=== PATIENT | male | born 1950 | race Caucasian/White ===

== ENCOUNTER → 2016-10-11 | Outpatient (CLI) | payer BC ==
[~2016-10-11] MED LIST: ASCO500T3 PO; ASPI81TA28 PO; BND25CL PO; CALC-393 PO; CALC-494 PO; CALC625T13 PO; CARB0.5D28 OPB; CHOL100010 PO; CHOL1CAP57 PO; CHRO1TAB8 PO; CINN500T PO; CLON0.5T3 PO; CYAN100020 PO; CYAN10005 PO; EPP3/2 IM; FOLI800T PO; LISI-461 PO; LORA-741 PO; LUTE1CAP PO; MULT-506 PO; OMEG100062 PO; POLYSOL4 OPB; PSYLCAP5 PO; RXC5 PO; SODI1.1C4
[2016-10-11 09:27] LABS: BASO % 0.3 %; BASO ABS # 0.02 K/uL (0-0.2); COMPLETE YES; EOS % 2.2 %; HEMATOCRIT 41.6 % (42-52); IG% 0.2 %; LYMPH % 35.4 %; LYMPH ABS # 2.13 K/uL (1.2-3.4); MEAN CELL VOLUME 89.3 fL (80-100); MEAN CORPUSCULAR HEMOGLOBIN 30.5 pg (25-34); MEAN CORPUSCULAR HGB CONC 34.1 g/dl (32-36); MEAN PLATELET VOLUME 10.2 fL (7.4-10.4); MONO % 11.8 %; NEUT % 50.1 %; PLATELET COUNT 155 K/uL (130-400); RED BLOOD COUNT 4.66 M/uL (4.7-6.1); WHITE BLOOD COUNT 6.01 K/uL (4.8-10.8)
[2016-10-11 09:34] LABS: ESTIMATED AVERAGE GLUCOSE 105 mg/dl; HA1C FLAG Normal (Normal)
[2016-10-11 09:41] LABS: ALT/SGPT 23 U/L (12-78); BLOOD UREA NITROGEN 25 mg/dl (7-18); BUN/CREATININE RATIO 28.4 (10-20); CARBON DIOXIDE 27 mmol/L (21-32); CHLORIDE 107 mmol/L (98-107); CHOLESTEROL 162 mg/dl (0-200); CREATININE 0.89 mg/dl (0.60-1.40); GLUCOSE 95 mg/dl (70-99); POTASSIUM 4.1 mmol/L (3.5-5.1); SODIUM 141 mmol/L (136-145); TRIGLYCERIDES 62 mg/dl (0-150); VERY LOW DENSITY LIPOPROT CALC 12 mg/dl
[2016-10-11 09:44] LABS: ALB/GLOB RATIO 1.1 (0.9-2); ALKALINE PHOSPHATASE 60 U/L (45-117); AST/SGOT 15 U/L (15-37); CHOLESTEROL/HDL RATIO 3.3; HDL CHOLESTEROL 49 mg/dl; LDL CHOLESTEROL CALCULATED 101 mg/dl
== END | disposition home or self-care (01) ==
LOC: C.LAB 06:54
PROVIDERS: ATTEND Internal Medicine
DX: R73.01 Impaired fasting glucose (principal)

== ENCOUNTER → 2016-12-08 | Day surgery (SDC) | payer BC ==
[2016-11-08 15:18] VITALS: BMI 33.0
[~2016-12-08] VITALS: Ht 188 cm; Wt 115.9 kg
[~2016-12-08] MED LIST changes: +ACET-24 PO; +ASPEC325 PO; -BND25CL PO; -CHOL1CAP57 PO; -CYAN10005 PO; +LIDOCAINE HCL 2% 2 ML VIAL (20MG/ML) ONE; +MORP-157 PO; -POLYSOL4 OPB; +PROPOFOL IV EMULSION 10 MG/ML 20 ML VIAL IV ONE
[2016-12-08 15:07] VITALS: Ht 188 cm; Wt 115.9 kg
--- NOTE | 2016-12-08 16:12 | Endo History and Physical ---
History & Physical Date of Service: Dec 08, 2016. Chief Complaint: HISTORY OF POLYPS Referring Physician: DR LISA VILLAREAL History of Present Illness 66 yo CM who presents for colonoscopy secondary to history of colon polyps. Past Medical History Sleep Apnea, Other Past Surgical History Hx Cardiac Surgery: No Hx Internal Defibrillator: No Hx Pacemaker: No Hx Abdominal Surgery: No Hx of Implantable Prosthesis: No Hx Post-Op Nausea and Vomiting: No Hx Cancer Surgery: No Hx Thoracic Surgery: No Hx Orthopedic: Yes (RT/LEFT CTR, LUMBAR DISCECTOMY, CERVICAL DISCECTOMY, RT/ LEFT CTR) Hx Urinary Tract Surgery: No Family History None Social History Smoking Status: Former Smoker Hx Substance Use: No Hx Alcohol Use: No Allergies Coded Allergies: BEE STING (Verified Allergy, Unknown, SHORTNESS OF BREATH, 12/08/16) Sulfamethoxazole w/Trimethoprim (Verified Allergy, Unknown, RASH, 12/08/16) Current Medications Reported Home Medications Medications Dose Route/Sig Max Daily Dose Days Date Category Lutein/Zeaxanthin 45-1.8 mg (Lutein-Zeaxanthin) 1 Cap Cap 1 Cap PO QAM 11/08/16 Reported Vitamin D (Cholecalciferol) 1,000 Unit Tab 1 Tab PO QAM 11/08/16 Reported Vitamin C (Ascorbic Acid) 500 Mg Tab 1 Tab PO QAM 11/08/16 Reported Vitamin B12 (Cyanocobalamin) 1,000 Mcg Tab 1 Tab PO QAM 11/08/16 Reported Refresh Tears (Carboxymethylcellulose Sodium) 0.5 % [place] 1 Drop OPB BID 11/08/16 Reported Sf 5000 Plus (Sodium Fluoride (Dental)) 1.1 % Cre 1 Dose HS PRN 11/08/16 Reported Fiber Tabs (Calcium Polycarbophil) 625 Mg Tab 1 Tab PO QAM 11/08/16 Reported Epipen (Epinephrine) 0.3 Mg/0.3 Ml Inj 0.3 Mg IM UD 11/08/16 Reported Calcium (Calcium Carbonate) 600 Mg Tab 1 Tab PO QAM 02/26/14 Reported [place]-3 Cf ([place]-3 Fatty Acids) 1 Cap Cap 1,000 Mg PO BID 07/17/13 Reported Multivitamin (Multivitamins) Tab 1 Tab PO QAM 07/17/13 Reported Metamucil Plus Calcium (Psyllium W/ Calcium) 1 Cap Cap 1 Cap PO QPM 07/17/13 Reported Folic Acid 800 Mcg Tab 800 Mcg PO QAM 07/17/13 Reported Cinnamon 500 Mg Tab 500 Mg PO BID 07/17/13 Reported Chromium Picolinate 1,000 Mcg Tab 1,000 Mcg PO QAM 07/17/13 Reported Aspirin Ec (Aspirin) 81 Mg Tab 81 Mg PO QAM 07/17/13 Reported Klonopin (Clonazepam) 0.5 Mg Tab 0.5 Mg PO HS 07/17/13 Reported Zestril (Lisinopril) 10 Mg Tab 10 Mg PO QAM 07/17/13 Reported Ativan (Lorazepam) 0.5 Mg Tab 0.5 Mg PO DAILY PRN 07/17/13 Reported Vital Signs Weight (Kilograms): 115.91 Height (Feet): 6 Height (Inches): 2 Date Time Temp Pulse Resp B/P Pulse Ox O2 Delivery O2 Flow Rate FiO2 12/08/16 15:18 36.7 84 18 126/70 96 Room Air Physical Exam General Appearance: WD/WN, no apparent distress Respiratory/Chest: Auscultation: breath sounds normal Cardiovascular: Heart Auscultation: RRR Abdomen: Bowel Sounds: normal Inspection & Palpation: soft, non-distended, no tenderness, guarding & rebound Assessment and Plan Assessment: 66 yo CM who presents for colonoscopy secondary to history of colon polyps. Plan: Proceed with colonoscopy.
--- NOTE | 2016-12-08 16:55 | Discharge Instructions ---
Endoscopy Patient Instructions Date / Procedure(s) Performed Dec 08, 2016. Colonoscopy Allergy Information Coded Allergies: BEE STING (Verified Allergy, Unknown, SHORTNESS OF BREATH, 12/08/16) Sulfamethoxazole w/Trimethoprim (Verified Allergy, Unknown, RASH, 12/08/16) Discharge Date / Findings Dec 08, 2016. Colon polyp Internal hemorrhoids Medication Instructions Stopped Medication(s): ALL VITAMINS AND SUPPLEMENTS OK to resume all medications today as prescribed. Reported Home Medications Medications Dose Route/Sig Max Daily Dose Days Date Category Lutein/Zeaxanthin 45-1.8 mg (Lutein-Zeaxanthin) 1 Cap Cap 1 Cap PO QAM 11/08/16 Reported Vitamin D (Cholecalciferol) 1,000 Unit Tab 1 Tab PO QAM 11/08/16 Reported Vitamin C (Ascorbic Acid) 500 Mg Tab 1 Tab PO QAM 11/08/16 Reported Vitamin B12 (Cyanocobalamin) 1,000 Mcg Tab 1 Tab PO QAM 11/08/16 Reported Refresh Tears (Carboxymethylcellulose Sodium) 0.5 % [place] 1 Drop OPB BID 11/08/16 Reported Sf 5000 Plus (Sodium Fluoride (Dental)) 1.1 % Cre 1 Dose HS PRN 11/08/16 Reported Fiber Tabs (Calcium Polycarbophil) 625 Mg Tab 1 Tab PO QAM 11/08/16 Reported Epipen (Epinephrine) 0.3 Mg/0.3 Ml Inj 0.3 Mg IM UD 11/08/16 Reported Calcium (Calcium Carbonate) 600 Mg Tab 1 Tab PO QAM 02/26/14 Reported [place]-3 Cf ([place]-3 Fatty Acids) 1 Cap Cap 1,000 Mg PO BID 07/17/13 Reported Multivitamin (Multivitamins) Tab 1 Tab PO QAM 07/17/13 Reported Metamucil Plus Calcium (Psyllium W/ Calcium) 1 Cap Cap 1 Cap PO QPM 07/17/13 Reported Folic Acid 800 Mcg Tab 800 Mcg PO QAM 07/17/13 Reported Cinnamon 500 Mg Tab 500 Mg PO BID 07/17/13 Reported Chromium Picolinate 1,000 Mcg Tab 1,000 Mcg PO QAM 07/17/13 Reported Aspirin Ec (Aspirin) 81 Mg Tab 81 Mg PO QAM 07/17/13 Reported Klonopin (Clonazepam) 0.5 Mg Tab 0.5 Mg PO HS 07/17/13 Reported Zestril (Lisinopril) 10 Mg Tab 10 Mg PO QAM 07/17/13 Reported Ativan (Lorazepam) 0.5 Mg Tab 0.5 Mg PO DAILY PRN 07/17/13 Reported Provider Instructions Activity Restrictions - No exercising or heavy lifting for 24 hours. - Do not drink alcohol the day of the procedure. - Do not drive a car or operate machinery until the day after the procedure. - Do not make any important decisions or sign important papers in 24 hours after the procedure. Following Day: - Return to full activity which may include returning to work/school. Diet Start your diet with liquids and light foods (jello, soup, juice, toast). Then eat your usual diet if not nauseated. Treatment For Common After Affects For mild abdominal pain, bloating, or excessive gas: - Rest - Eat lightly - Lie on right side Follow-Up Information Follow-up with DR LISA VILLAREAL as scheduled Anesthesia Information What You Should Know You have had a procedure that required some medicine to reduce anxiety and discomfort. This treatment is called moderate sedation. After receiving the treatment, you may be sleepy, but you will be able to breathe on your own. The effects of the treatment may last for several hours. Follow these instructions along with Activity/Diet recommendations noted above: * Do NOT do anything where dizziness or clumsiness would be dangerous. * Rest quietly at home today, then you can be up and about tomorrow. * Have a responsible person stay with you the rest of today. * You may have had an I.V. today. If so, you may take the dressing off later today. Recommendations Call your doctor if: * Trouble breathing * Continuous vomiting for more than 24 hours * Temperature above 101 degrees * Severe abdominal pain or bloating * Pain not relieved by pain medicine ordered * There is increased drainage or redness from any incision * A large amount of rectal bleeding greater than 2-3 tablespoons. (If you had a polyp/s removed or have hemorrhoids, a small amount of blood - from the rectum is to be expected.) * You have any unanswered questions or concerns. IN THE EVENT OF A SERIOUS EMERGENCY, GO TO THE NEAREST EMERGENCY ROOM Your discharge instructions were prepared by provider Nam Conde. Patient Instructions Signature Page Lamont Saba Patient (or Guardian) Signature/Date: I have read and understand the instructions given to me by my caregivers. Caregiver/RN/Doctor Signature/Date: The above-named patient and/or guardian has received patient instructions on this date. + Original Patient Signature Page (only) stays with chart. Please make copy for patient.
--- NOTE | 2016-12-08 17:02 | Anesthesiology Progress Note ---
Anesthesia Post Op Note Date & Time Dec 08, 2016 at 17:02 Vital Signs Pain Intensity: 0 Vital Signs Past 12 Hours Date Time Temp Pulse Resp B/P Pulse Ox O2 Delivery O2 Flow Rate FiO2 12/08/16 16:58 68 18 124/80 96 Room Air 12/08/16 16:43 73 18 123/77 96 Room Air 12/08/16 15:18 36.7 84 18 126/70 96 Room Air Notes Mental Status: alert / awake / arousable, participated in evaluation Pt Amnestic to Procedure: Yes Nausea / Vomiting: adequately controlled Pain: adequately controlled Airway Patency, RR, SpO2: stable & adequate BP & HR: stable & adequate Hydration State: stable & adequate Anesthetic Complications: no major complications apparent
[2016-12-08 17:13] VITALS: BP 75/80; PULSE 64; O2SAT 96
--- NOTE | 2016-12-08 17:13 | GI REPORT ---
Procedure Date: 12/08/2016 4:13 PM Procedure: Colonoscopy Indications: High risk colon cancer surveillance: Personal history of colonic polyps Medicines: Monitored Anesthesia Care Complications: No immediate complications. Estimated Blood Loss: Estimated blood loss: none. Procedure: Pre-Anesthesia Assessment: - Prior to the procedure, a History and Physical was performed, and patient medications and allergies were reviewed. The patient's tolerance of previous anesthesia was also reviewed. The risks and benefits of the procedure and the sedation options and risks were discussed with the patient. All questions were answered, and informed consent was obtained. Prior Anticoagulants: The patient has taken aspirin, last dose was 14 days prior to procedure. ASA Grade Assessment: III - A patient with severe systemic disease. After reviewing the risks and benefits, the patient was deemed in satisfactory condition to undergo the procedure. After I obtained informed consent, the scope was passed under direct vision. Throughout the procedure, the patient's blood pressure, pulse, and oxygen saturations were monitored continuously. The Scope was introduced through the anus and advanced to the terminal ileum. The colonoscopy was performed without difficulty. The patient tolerated the procedure well. The quality of the bowel preparation was good. The terminal ileum, ileocecal valve, appendiceal orifice, and rectum were photographed. Findings: A 5 mm polyp was found in the cecum. The polyp was sessile. The polyp was removed with a hot snare. Resection and retrieval were complete. Multiple small-mouthed diverticula were found in the sigmoid colon. Non-bleeding internal hemorrhoids were found during retroflexion. The hemorrhoids were small. Impression: - One 5 mm polyp in the cecum, removed with a hot snare. Resected and retrieved. - Diverticulosis in the sigmoid colon. - Non-bleeding internal hemorrhoids. Recommendation: - Resume previous diet. - Continue present medications. - Await pathology results. - Repeat colonoscopy for surveillance based on pathology results. - Return to primary care physician as previously scheduled. Nam Conde, 12/08/2016 5:11:07 PM This report has been signed electronically. Note Initiated On: 12/08/2016 4:13 PM I attest to the content of the Intraoperative Record and orders documented therein, exceptions below
== END | disposition home or self-care (01) ==
LOC: C.GI 14:22
PROVIDERS: ATTEND Internal Medicine
DX: Z12.11 Encounter for screening for malignant neoplasm of colon (principal); Z86.010 Personal history of colon polyps; D12.0 Benign neoplasm of cecum; K57.30 Diverticulosis of large intestine without perforation or abscess without bleeding; K64.8 Other hemorrhoids; Z87.891 Personal history of nicotine dependence; Z79.82 Long term (current) use of aspirin; Z79.899 Other long term (current) drug therapy

== ENCOUNTER → 2017-06-15 | Outpatient (CLI) | payer BC ==
[~2017-06-15] MED LIST changes: -CALC-393 PO; -LIDOCAINE HCL 2% 2 ML VIAL (20MG/ML) ONE; -PROPOFOL IV EMULSION 10 MG/ML 20 ML VIAL IV ONE
[2017-06-15 09:52] LABS: ESTIMATED AVERAGE GLUCOSE 111 mg/dl; HA1C FLAG Normal (Normal)
[2017-06-15 09:53] LABS: CHOLESTEROL/HDL RATIO 3.4
== END | disposition home or self-care (01) ==
LOC: C.LAB 06:53
PROVIDERS: ATTEND Internal Medicine
DX: Z11.59 Encounter for screening for other viral diseases (principal); G47.33 Obstructive sleep apnea (adult) (pediatric)

== ENCOUNTER → 2017-11-03 | Outpatient (CLI) | payer BC ==
[~2017-11-03] MED LIST changes: -ASPI81TA28 PO; -MORP-157 PO
== END | disposition home or self-care (01) ==
LOC: C.LABBC 10:48
PROVIDERS: ATTEND Internal Medicine
DX: I10 Essential (primary) hypertension (principal); G47.33 Obstructive sleep apnea (adult) (pediatric); E78.5 Hyperlipidemia, unspecified; H91.90 Unspecified hearing loss, unspecified ear; K63.5 Polyp of colon; R73.01 Impaired fasting glucose; D64.9 Anemia, unspecified

== ENCOUNTER 2021-12-02 23:46 | Inpatient (IN) ==
[2021-12-03] MEDS ORDERED: ONDANSETRON INJ 2 MG/ML 2 ML VIAL ONE ×2 (00:41→02:00)
[2021-12-03] MEDS ORDERED: SODIUM CHLORIDE 0.9% 1000ML 1,000 ML IV SCH (00:45)
[2021-12-03 00:53] LABS: Basophils # (auto) 0.02 K/uL (0-0.2); Basophils % (auto) 0.2 %; Eosinophils # (auto) 0.02 K/uL (0-0.5); Eosinophils % (auto) 0.2 %; Hematocrit (blood only) 37.1 % (42-52); Hemoglobin 12.3 g/dL (14.0-18.0); Immature Granulocytes # (auto) 0.04 K/uL (0.00-0.02); Immature Granulocytes % (auto) 0.3 %; Lymphocytes # (auto) 1.47 K/uL (1.2-3.4); Lymphocytes % (auto) 12.3 %; Mean Corpuscular Hemoglobin 30.4 pg (25-34); Mean Corpuscular Hgb Conc 33.2 g/dL (32-36); Mean Corpuscular Volume 91.8 fL (80-100); Mean Platelet Volume 9.5 fL (7.4-10.4); Monocytes # (auto) 1.09 K/uL (0.11-0.59); Monocytes % (auto) 9.1 %; Neutrophils # (auto) 9.29 K/uL (1.4-6.5); Neutrophils % (auto) 77.9 %; Platelet Count 334 K/uL (130-400); RDW Coefficient of Variation 13.6 % (11.5-14.5); RDW Standard Deviation 45.9 fL (36.4-46.3); Red Blood Count 4.04 M/uL (4.7-6.1); White Blood Count 11.93 K/uL (4.8-10.8)
[2021-12-03 01:13] LABS: Alanine Aminotransferase 53 U/L (7-52); Albumin Level 3.4 gm/dl (3.4-5.0); Alkaline Phosphatase 156 U/L (34-104); Anion Gap 10 (3-11); Aspartate Aminotransferase 33 U/L (13-39); BUN Creatinine Ratio 14.2 (10-20); Bilirubin,Total 1.2 mg/dl (0.2-1.0); Blood Urea Nitrogen 17 mg/dl (6-23); Calcium 8.7 mg/dl (8.5-10.1); Carbon Dioxide 23 mmol/L (21-32); Chloride 97 mmol/L (98-107); Est GFR (African American) 71.1 ml/min; Est GFR (Non-African American) 61.3 ml/min; Globulin 3.3 gm/dl (2.5-4.0); Glucose 130 mg/dl (70-99(Fasting)); Magnesium 1.9 mg/dl (1.7-2.4); Potassium 4.5 mmol/L (3.5-5.1); Sodium 130 mmol/L (136-145); Total Protein 6.7 gm/dl (6.0-8.3)
[2021-12-03 01:17] LABS: Troponin I High Sensitivity 8.5 pg/ml (0-20)
[2021-12-03] MEDS ORDERED: AMIODARONE / D5W 150 MG/100 ML BAG IV STA (01:33)
[2021-12-03] MEDS ORDERED: 0.2 MICRON FILTER SET 1 EA IV ONE (01:33)
[2021-12-03] MEDS ORDERED: STAT IV Infusion **Titration per Protocol STA ×3 (02:37→05:34)
[2021-12-03] MEDS ORDERED: PHENYLEPHRINE HCL 20 MG in DEXTROSE 5% 500 ML IV SCH (02:45)
[2021-12-03] MEDS: PHENYLEPHRINE HCL 20 MG in DEXTROSE 5% 500 ML IV SCH ×3 (02:54→09:18)
[2021-12-03] MEDS ORDERED: COLCHICINE 0.6 MG TAB PO ONE (03:11)
[2021-12-03] MEDS ORDERED: ASPIRIN 81 MG CHEW PO STA (03:13)
[2021-12-03] MEDS ORDERED: methylPREDNISolone 125 MG/2 ML VIAL IV STA (03:16)
[2021-12-03] MEDS ORDERED: FAMOTIDINE 20MG/5ML IV PUSH IV ONE (03:43)
[2021-12-03 04:23] LABS: Lyme Ab IgG w/WB Rflx Negative (Negative); Lyme Ab IgM w/WB Rflx Negative (Negative)
[2021-12-03] MEDS ORDERED: clonazePAM 0.5 MG TAB PO PRN (04:42)
[2021-12-03] MEDS ORDERED: ICU PROTOCOL FOR HYPERGLYCEMIA PRN (04:42)
--- NOTE | 2021-12-03 05:32 | Critical Care Consultation ---
Date of Consultation December 03, 2021 Assessment & Plan (1) Admitted to intensive care unit: (2) Acute hypotension: Reason Critically Ill: 71-year-old male presenting with hypotension, generalized fatigue, and a flutter. Patient cardioverted in the emergency department and now with persistent hypotension requiring close hemodynamic monitoring and initiation of vasopressors. NEURO - * CAM ICU: NEGATIVE CARDIAC/VASCULAR - * Hypotension: * Of questionable etiology at this point. Patient minimally responded with IV fluid resuscitation. Attempts at chemical cardioversion resulted in profound hypotension and need for electrical cardioversion. Patient now in sinus rhythm with rates in the 60s to 70s. Unfortunately, despite conversion to sinus rhythm, the patient is with persistent hypotension requiring initiation of vasopressors. Patient started on Presley-Synephrine. * Of concern, the patient has chest films which demonstrate enlarged cardiac silhouette when compared to approximately 10 days ago. On exam, patient has minimal to distant heart sounds. * POCUS performed by myself is concerning of effusion pathology. Formal Echo pending. Reached out to social services technician to have bedside echo performed first this this AM. Certainly could consider CT, but would prefer to get Echo first as patient requiring pressors currently. * Will transition patient from Presley to Levo * New onset A flutter: * Initially received amiodarone, but became profoundly hypotensive. Eventually required electrical cardioversion. Now in sinus rhythm. * Would consider reinstituting amio gtt w/ pressors if return of a flutter. * May require repeat cardioversion attempts. * EKG: NSR @ 73 bpm. T wave inversions noted septal/laterally. QTc 438 ms. * Monitor on telemetry. RESPIRATORY - * Hypoxia: * Requiring 4 L at this time. * No respiratory distress. GI/NUTRITION - * NPO RENAL/LYTES - * TONY * IVF: NSS @ 100 mL/hr - * Disla in place - Strict I&Os. ENDO - * No h/o DM or Thyroid Dz * BSGs per unit protocol. ISS --> gtt per unit policy. HEME - * Stable H&H ID - * Recently completed course of antibiotics in the outpatient for pneumonia. * Patient afebrile at this time. * No infiltrates on CXR to suggest need for additional antibiotics at this time. * No fevers. * Slight elevation of WBCs. * Hold on ABX for now LINES/IV ACCESS - * PIVs x2 DVT PROPHYLAXIS - * Hold pending Echo * SCDs I have personally spent 55 minutes of critical care time in the direct management of this patient. This is a life/limb threatening event. This includes time spent evaluating patient, direct bedside care, chart review, placing orders, interpretation of diagnostic studies, discussion with consultants, patient, and family members, as well as other required patient management activities. This time is exclusive of all separately billable procedures, and teaching time and separate from and in addition to any other critical care service time. Thank you for allowing us to participate in the care of this patient. Please refer to my attending physician's documentation for any further recommendations. (3) Weakness: (4) Atrial flutter: History of Present Illness Attending Physician: Gianfranco Molina MD History of Present Illness Patient is a 71-year-old male with significant past medical history of generalized anxiety disorder, hypertension, hyperlipidemia, obstructive sleep apnea, cervical spinal stenosis, and degenerative disc disease who presented to the emergency department with a several day history of shortness of breath, nausea, and generalized weakness. The patient was diagnosed in the outpatient setting with pneumonia. He was placed on a weeklong course of doxycycline. He states that he had an abbreviated time where he seemed to feel better, however the symptoms of improvement dissipated quickly. Main symptoms are generalized weakness and fatigue. Apparently, patient has had difficulties with ambulation secondary to weakness and shortness of breath. In the emergency department, the patient was found to be in a 2-1 a flutter rhythm and hypotensive. He received volume resuscitation without improvement in blood pressure, heart rate, or rhythm. While patient was receiving amiodarone bolus, he became increasingly hypotensive with systolic blood pressures in the 50s. Patient was symptomatic with near syncopal episode. Pulse was stopped, and the patient was cardioverted with 100 J. Patient converted to sinus rhythm. Despite conversion to sinus rhythm, the patient remained with hypotension and systolic blood pressures in the 60s. He was started on Pres[place]-Synephrine. Upon evaluation in the ICU, the patient is awake, alert, and oriented. He complains of nausea as well as generalized weakness and fatigue. Currently, the patient denies complaints of chest pain, palpitations, shortness of breath, pleuritic pain, vomiting, headaches, dizziness, lightheadedness, numbness/weakness to the extremities. Allergies Allergy/AdvReac Type Severity Reaction Status Date / Time Bactrim Allergy Unknown RASH Verified 06/23/17 10:52 bee venom protein (honey bee) Allergy Unknown SHORTNESS Verified 12/03/21 02:13 OF BREATH sulfamethoxazole Allergy Unknown RASH Verified 12/03/21 02:13 trimethoprim Allergy Unknown RASH Verified 12/03/21 02:13 morphine AdvReac rash Verified 12/03/21 02:13 Home Medications Medication Instructions Recorded Confirmed Type aspirin 81 mg tablet 81 mg PO DAILY tab 04/01/19 12/03/21 History calcium citrate 250 mg 2 tab PO DAILY tab 04/01/19 12/03/21 History calcium-vitamin D3 5 mcg (200 unit) tablet chromium picolinate 1,000 mcg 1,000 mcg PO DAILY tab 04/01/19 12/03/21 History tablet cinnamon bark 500 mg capsule 1,000 mg PO DAILY cap 04/01/19 12/03/21 History (Cinnamon) cyanocobalamin (vitamin B-12) 1,000 mcg PO DAILY tab 04/01/19 12/03/21 History 1,000 mcg tablet folic acid 800 mcg tablet 0.8 mg PO DAILY tab 04/01/19 12/03/21 History omega-3 acid ethyl esters 1 gram 2 cap PO DAILY cap 04/01/19 12/03/21 History capsule ascorbic acid (vitamin C) 500 mg 500 mg PO DAILY cap 07/31/19 12/03/21 History capsule multivitamin 1 tab PO DAILY 07/31/19 12/03/21 History psyllium husk-calcium 1 gram-60 mg 1 cap PO BID cap 07/31/19 12/03/21 History capsule (Metamucil Plus Calcium) lorazepam 0.5 mg tablet 0.5 mg PO DAILY PRN #30 tab 11/05/19 12/03/21 Rx [id number]-LP 100 mcg-lut 1.66 1 tab PO DAILY tab 09/23/20 12/03/21 History mg-zeaxanth 0.83 mg tablet,delay rel. (Icaps MV) carboxymethylcellulose sodium 0.5 1 drp OPHTHALMIC (EYE) BID 11/06/20 12/03/21 History % eye drops (Refresh Tears) fluoride (sodium) 1.1 % dental 1 applic DENTAL DAILY 11/06/20 12/03/21 History cream (SF 5000 Plus) lisinopril 10 mg tablet 10 mg PO DAILY #90 tab 03/11/21 12/03/21 Rx epinephrine 0.3 mg/0.3 mL 0.3 mg IM Q15M PRN #2 ea 03/15/21 12/03/21 Rx injection, auto-injector clonazepam 0.5 mg tablet 0.5 mg PO DAILY #30 tab 10/06/21 12/03/21 Rx doxycycline hyclate 100 mg capsule 100 mg PO BID 7 Days #14 cap 11/23/21 12/03/21 Rx Patient History Medical History Anaphylaxis Anaphylaxis due to hymenoptera venom Anemia Benign colonic polyp Cervical stenosis of spinal canal (03/05/14) Degenerative disc disease, lumbar Generalized anxiety disorder Greater trochanteric pain syndrome of left lower extremity Hearing loss Hyperlipidemia Hypertension Impaired fasting glucose Leg length discrepancy Localized primary osteoarthritis of lower leg NERIS (obstructive sleep apnea) Periodic limb movement disorder Surgical History History of eye surgery History of foot surgery History of lumbar laminectomy History of retained foreign body fully removed History of tonsillectomy Family History Brother Anxiety Hypertension Intellectual disability Sister Breast cancer Mother Hypertension Father Lung cancer Other Asthma Cancer Hearing loss Social History Smoking Status: Former smoker packs per day: 1.5; Smoking End Date: 46 years ago; Number of Years Since Quit: 41; Second Hand Exposure: No; Do You Dip or Chew Tobacco: No; Tobacco Cessation Education Requested by Patient: No Hx Alcohol Use: No Hx Substance Use: No Preferred Language: Spanish Communication Ability: Effective Visual Impairment: Limited Hearing Ability: Use of Hearing Aid Electrical Unit Rebuilder Required: No Beliefs That Will Affect Care: None marital status: Current Living Situation: Spouse current occupational status: retired current occupation: clerk stenographer How many Children do You have: 0 Other Information That Helps Us Care for You: No Feels Safe at Home: Yes Safety Concerns: Feels Safe At This Time Childhood Exposure to Second-Hand Smoke: No caffeine: Yes Dental Care, Regularly: Yes Physical Activity Frequency: Daily Seatbelt Use: always Sunscreen Use: Yes Assistive Devices: Glasses and Hearing Aid - Bilateral Review of Systems Review of Systems: A complete 10 point review of systems was reviewed with the patient with pertinent positives and negatives as per history of present illness. All else were negative. Physical Exam Physical Exam: VITAL SIGNS - Vital signs and nursing notes were reviewed. GENERAL - 71-year-old male appearing his stated age who is in moderate distress. Communicates well with provider and answers questions appropriately. HEAD - NC/AT. EYES - PERRL with EOMI bilaterally. Sclera anicteric. EARS - No deformities of external structures noted on gross examination bilaterally. NOSE - Midline and without cyanosis. No epistaxis or purulent drainage noted. MOUTH/OROPHARYNX - Without perioral cyanosis. Buccal mucosa pink and moist. NECK - Neck with FROM. Supple to palpation. LUNGS - Chest wall symmetric without accessory muscle use, intercostals retractions, or central cyanosis. Normal vesicular breath sounds CTA B/L. No wheezes, rales, or rhonchi appreciated. CARDIAC - Muffled heart sounds. No rubs appreciated. ABDOMEN - Abdominal contour obese without pulsations or visible masses. BS normoactive all four quadrants. No tenderness, palpable masses, hepatosplenomegaly, or ascites noted. EXTREMITIES - No clubbing or peripheral cyanosis. No pretibial edema present. +3/5 radial and dorsalis pedis pulses palpated throughout. +5/5 strength noted in UE/LE bilaterally. NEUROLOGIC - Cranial nerves II through XII grossly intact. Sensory intact to light touch throughout. PSYCH - A&Ox3 and cooperates fully with examiner. Pt is very pleasant and interacts well with examiner. Results & Data Results & Data ([facility]) Vital Signs (Past 12 Hours) Vital Signs Temp Pulse Pulse Resp BP BP Pulse Ox 12/03/21 05:00 36.6 C 70 21 85/57 L 97 12/03/21 04:42 36.8 C 75 76 20 83/54 L 85/57 L 96 12/03/21 04:05 67 23 92/63 L 96 12/03/21 04:00 68 21 83/64 L 97 12/03/21 03:56 68 21 106/63 97 12/03/21 03:51 68 22 88/62 L 97 12/03/21 03:45 68 22 81/67 L 100 12/03/21 03:40 69 27 H 106/63 98 12/03/21 03:35 68 22 92/58 L 97 12/03/21 03:32 69 23 90/57 L 97 12/03/21 03:21 68 21 86/57 L 95 12/03/21 03:16 70 23 98/53 L 96 12/03/21 03:10 68 23 94/57 L 98 12/03/21 03:06 71 23 82/56 L 96 12/03/21 02:45 74 23 65/50 L 97 12/03/21 02:40 75 22 62/44 L 97 12/03/21 02:35 74 23 64/48 L 97 12/03/21 02:30 77 24 67/53 L 95 12/03/21 02:25 77 22 63/48 L 97 12/03/21 02:20 77 22 61/48 L 98 12/03/21 02:18 75 18 66/49 L 99 12/03/21 02:14 77 20 121/92 100 12/03/21 02:10 76 21 100 12/03/21 02:08 74 21 100 12/03/21 02:06 78 23 69/47 L 100 12/03/21 02:04 77 22 90/46 L 99 12/03/21 02:00 73 24 62/50 L 70 L 12/03/21 01:58 72 19 67/50 L 67 L 12/03/21 01:57 73 22 68/49 L 81 L 12/03/21 01:50 63/51 L 68 L 12/03/21 01:46 137 H 24 55/36 L 97 12/03/21 01:43 141 H 23 67/53 L 100 12/03/21 01:41 144 H 24 69/55 L 100 12/03/21 01:40 145 H 23 66/49 L 96 12/03/21 01:35 141 H 22 74/59 L 88 L 12/03/21 01:30 145 H 23 87/53 L 98 12/03/21 01:25 144 H 22 78/56 L 98 12/03/21 01:20 144 H 23 80/65 L 96 12/03/21 01:15 144 H 21 76/61 L 100 12/03/21 01:10 144 H 21 96/59 L 92 12/03/21 01:05 143 H 23 81/69 L 74 L 12/03/21 01:00 141 H 21 82/64 L 95 12/03/21 00:55 141 H 20 86/69 L 89 L 12/03/21 00:52 140 H 21 80/56 L 92 12/03/21 00:50 140 H 20 84/62 L 78 L 12/03/21 00:44 137 H 20 87/60 L 12/03/21 00:42 138 H 23 89/54 L 12/03/21 00:40 140 H 20 12/03/21 00:38 141 H 20 75/58 L 12/03/21 00:34 140 H 24 95 12/03/21 00:30 142 H 25 H 12/03/21 00:29 141 H 21 91/60 L 97 12/03/21 00:28 141 H 18 72/53 L 95 12/03/21 00:27 143 H 21 97 12/02/21 23:55 140 H 20 90/50 L 95 12/02/21 23:47 36.6 C 119 H 16 114/79 100 Coding Level of Care Code Critical Care 1st 30-74 mins Diagnoses Admitted to intensive care unit Z78.9 Acute hypotension I95.9 Weakness R53.1 Atrial flutter I48.92 Time Spent (min) 55
[2021-12-03] MEDS ORDERED: NOREPINEPHRINE/D5W 8 MG/508 ML IV ONE (05:34)
[2021-12-03] MEDS: NOREPINEPHRINE/D5W 8 MG/508 ML BAG IV SCH (05:36)
[2021-12-03 05:39] LABS: Appearance Urine Clear (Clear); Bacteria Urine Automated Negative (Negative); Bilirubin Urine Negative (Negative); Blood Urine Negative (Negative); Color Urine Dark Yellow; Glucose Urine UA Negative (Negative); Ketones Urine Trace (Negative); Leukocyte Esterase Urine Negative (Negative); Nitrite Urine Negative (Negative); Protein Urine Trace (Negative); RBC Urine Automated 0-4 /hpf (0-4); Specific Gravity Urine 1.024 (1.000-1.030); Urobilinogen Urine Negative (Negative)
--- NOTE | 2021-12-03 05:43 | History & Physical Report ---
Date of Service December 03, 2021 Assessment & Plan (1) Acute hypotension: Plan: Acute hypotension- Started on Presley-Synephrine drip from the ED EKG with lateral ST-T changes Chest x-ray showed significant enlargement of cardiac silhouette Picture suggested that of a probable pericardial effusion and pericarditis versus cardiomyopathy following a viral process Empirically started on aspirin 324 mg p.o. twice daily, colchicine 0.6 mg p.o. twice daily and a single dose of methylprednisolone 60 mg IV. Lyme testing ordered and negative. Covid 19 testing ordered and negative. Viral biofire panel pending Consults to ICU medical coding instructor and cardiology (2) Hypertension: Plan: Hold lisinopril due to hypotension (3) Hyperlipidemia: Plan: On no specific treatment Check a fasting lipid panel (4) Impaired fasting glucose: Plan: Impaired fasting glucose- Accu-Cheks per unit protocol Check hemoglobin A1c (5) NERIS (obstructive sleep apnea): Plan: Patient presently oxygenating well on nasal cannula, will supply CPAP/BiPAP as needed (6) Generalized anxiety disorder: Plan: Generalized anxiety disorder/periodic limb movement disorder- Continue clonazepam daily (7) Periodic limb movement disorder: Admission and Anticipated Discharge Date Admission Date: December 03, 2021 History of Present Illness Primary Care Provider: Rosas Leyva MD The patient is a 71-year-old male with a past medical history including lumbar degenerative disc disease, lumbar laminectomy, cervical spine stenosis, periodic limb movement disorder, NERIS, impaired fasting glucose, hypertension, hyperlipidemia, generalized anxiety disorder. The patient had a telehealth visit on 11/22/2021, and arrangements have been made for COVID-19 and influenza testing. His significant other reports he had a pneumonia shot at the end of October, and felt after that time he began to progressively feel weakness, fatigue and achiness. The patient had just completed a course of doxycycline, but due to worsening symptoms, he presented to the ED for assessment. Upon arrival to the emergency department, patient was found to be hypotensive, in atrial fibrillation with RVR, was given appropriate fluid resuscitation, and required cardioversion. His blood pressure and heart rate mildly improved, and as work-up progressed, with abnormal EKG suggesting ST- T changes in the lateral chest leads, and chest x-ray showing increased heart size, he was started on a neodrip by ED, and both the hospitalist service in the ICU service was contacted for admission. A significant part of the history was obtained through his significant other, as the patient was somewhat fatigued. Allergies Allergy/AdvReac Type Severity Reaction Status Date / Time Bactrim Allergy Unknown RASH Verified 06/23/17 10:52 bee venom protein (honey bee) Allergy Unknown SHORTNESS Verified 12/03/21 02:13 OF BREATH sulfamethoxazole Allergy Unknown RASH Verified 12/03/21 02:13 trimethoprim Allergy Unknown RASH Verified 12/03/21 02:13 morphine AdvReac rash Verified 12/03/21 02:13 Home Medications Medication Instructions Recorded Confirmed Type aspirin 81 mg tablet 81 mg PO DAILY tab 04/01/19 12/03/21 History calcium citrate 250 mg 2 tab PO DAILY tab 04/01/19 12/03/21 History calcium-vitamin D3 5 mcg (200 unit) tablet chromium picolinate 1,000 mcg 1,000 mcg PO DAILY tab 04/01/19 12/03/21 History tablet cinnamon bark 500 mg capsule 1,000 mg PO DAILY cap 04/01/19 12/03/21 History (Cinnamon) cyanocobalamin (vitamin B-12) 1,000 mcg PO DAILY tab 04/01/19 12/03/21 History 1,000 mcg tablet folic acid 800 mcg tablet 0.8 mg PO DAILY tab 04/01/19 12/03/21 History omega-3 acid ethyl esters 1 gram 2 cap PO DAILY cap 04/01/19 12/03/21 History capsule ascorbic acid (vitamin C) 500 mg 500 mg PO DAILY cap 07/31/19 12/03/21 History capsule multivitamin 1 tab PO DAILY 07/31/19 12/03/21 History psyllium husk-calcium 1 gram-60 mg 1 cap PO BID cap 07/31/19 12/03/21 History capsule (Metamucil Plus Calcium) lorazepam 0.5 mg tablet 0.5 mg PO DAILY PRN #30 tab 11/05/19 12/03/21 Rx hlveueia-oas-VO 100 mcg-lut 1.66 1 tab PO DAILY tab 09/23/20 12/03/21 History mg-zeaxanth 0.83 mg tablet,delay rel. (Icaps MV) carboxymethylcellulose sodium 0.5 1 drp OPHTHALMIC (EYE) BID 11/06/20 12/03/21 History % eye drops (Refresh Tears) fluoride (sodium) 1.1 % dental 1 applic DENTAL DAILY 11/06/20 12/03/21 History cream (SF 5000 Plus) lisinopril 10 mg tablet 10 mg PO DAILY #90 tab 03/11/21 12/03/21 Rx epinephrine 0.3 mg/0.3 mL 0.3 mg IM Q15M PRN #2 ea 03/15/21 12/03/21 Rx injection, auto-injector clonazepam 0.5 mg tablet 0.5 mg PO DAILY #30 tab 10/06/21 12/03/21 Rx doxycycline hyclate 100 mg capsule 100 mg PO BID 7 Days #14 cap 11/23/21 12/03/21 Rx Past Med/Surg History Medical History Anaphylaxis Anaphylaxis due to hymenoptera venom Anemia Benign colonic polyp Cervical stenosis of spinal canal (03/05/14) Degenerative disc disease, lumbar Generalized anxiety disorder Greater trochanteric pain syndrome of left lower extremity Hearing loss Hyperlipidemia Hypertension Impaired fasting glucose Leg length discrepancy Localized primary osteoarthritis of lower leg NERIS (obstructive sleep apnea) Periodic limb movement disorder Surgical History History of eye surgery History of foot surgery History of lumbar laminectomy History of retained foreign body fully removed History of tonsillectomy Family History Brother Anxiety Hypertension Intellectual disability Sister Breast cancer Mother Hypertension Father Lung cancer Other Asthma Cancer Hearing loss Social History Smoking Status: Former smoker packs per day: 1.5; Smoking End Date: 46 years ago; Number of Years Since Quit: 41; Second Hand Exposure: No; Do You Dip or Chew Tobacco: No; Tobacco Cessation Education Requested by Patient: No Hx Alcohol Use: No Hx Substance Use: No Preferred Language: Polish Communication Ability: Effective Visual Impairment: Limited Hearing Ability: Use of Hearing Aid Sow [employer] Technician Required: No Beliefs That Will Affect Care: None marital status: Current Living Situation: Spouse current occupational status: retired current occupation: therapeutic consultant How many Children do You have: 0 Other Information That Helps Us Care for You: No Feels Safe at Home: Yes Safety Concerns: Feels Safe At This Time Childhood Exposure to Second-Hand Smoke: No caffeine: Yes Dental Care, Regularly: Yes Physical Activity Frequency: Daily Seatbelt Use: always Sunscreen Use: Yes Assistive Devices: Cane, Glasses and Hearing Aid - Bilateral Review of Systems Review of Systems: As noted above Physical Exam Physical Exam: The patient is awake, alert but severely fatigued. Well developed and well nourished, normocephalic and atraumatic, lying in bed and in mild to moderate distress HEENT--PERRL, EOMI, mucous membranes and oropharynx dry. Neck--supple. No JVD. No bruits. Thyroid normal, trachea midline, no adenopathy. Heart--normal S1 and S2. No murmurs, rubs or gallops. Lungs--coarse breath sounds with wheezes bilaterally. Mild to moderate respiratory distress, no accessory muscle use. Abdomen--normal bowel sounds and soft. Nontender. Nondistended. Obese Extremities--no cyanosis or clubbing. 1+ bilateral pretibial pitting edema. Dermatologic--normal skin turgor, normal color, no abnormal lymph nodes, no rash. Neurologic--cranial nerves II through XII grossly intact. Rheumatologic--normal range of motion. Psychiatric--fatigued. Results & Data Results & Data ([facility]) Vital Signs (Past 12 Hours) Vital Signs Temp Pulse Pulse Resp BP BP Pulse Ox 12/03/21 05:00 36.6 C 70 21 85/57 L 97 12/03/21 04:42 36.8 C 75 76 20 83/54 L 85/57 L 96 12/03/21 04:05 67 23 92/63 L 96 12/03/21 04:00 68 21 83/64 L 97 12/03/21 03:56 68 21 106/63 97 12/03/21 03:51 68 22 88/62 L 97 12/03/21 03:45 68 22 81/67 L 100 12/03/21 03:40 69 27 H 106/63 98 12/03/21 03:35 68 22 92/58 L 97 12/03/21 03:32 69 23 90/57 L 97 12/03/21 03:21 68 21 86/57 L 95 12/03/21 03:16 70 23 98/53 L 96 12/03/21 03:10 68 23 94/57 L 98 12/03/21 03:06 71 23 82/56 L 96 12/03/21 02:45 74 23 65/50 L 97 12/03/21 02:40 75 22 62/44 L 97 12/03/21 02:35 74 23 64/48 L 97 12/03/21 02:30 77 24 67/53 L 95 12/03/21 02:25 77 22 63/48 L 97 12/03/21 02:20 77 22 61/48 L 98 12/03/21 02:18 75 18 66/49 L 99 12/03/21 02:14 77 20 121/92 100 12/03/21 02:10 76 21 100 12/03/21 02:08 74 21 100 12/03/21 02:06 78 23 69/47 L 100 12/03/21 02:04 77 22 90/46 L 99 12/03/21 02:00 73 24 62/50 L 70 L 12/03/21 01:58 72 19 67/50 L 67 L 12/03/21 01:57 73 22 68/49 L 81 L 12/03/21 01:50 63/51 L 68 L 12/03/21 01:46 137 H 24 55/36 L 97 12/03/21 01:43 141 H 23 67/53 L 100 12/03/21 01:41 144 H 24 69/55 L 100 12/03/21 01:40 145 H 23 66/49 L 96 12/03/21 01:35 141 H 22 74/59 L 88 L 12/03/21 01:30 145 H 23 87/53 L 98 12/03/21 01:25 144 H 22 78/56 L 98 12/03/21 01:20 144 H 23 80/65 L 96 12/03/21 01:15 144 H 21 76/61 L 100 12/03/21 01:10 144 H 21 96/59 L 92 12/03/21 01:05 143 H 23 81/69 L 74 L 12/03/21 01:00 141 H 21 82/64 L 95 12/03/21 00:55 141 H 20 86/69 L 89 L 12/03/21 00:52 140 H 21 80/56 L 92 12/03/21 00:50 140 H 20 84/62 L 78 L 12/03/21 00:44 137 H 20 87/60 L 12/03/21 00:42 138 H 23 89/54 L 12/03/21 00:40 140 H 20 12/03/21 00:38 141 H 20 75/58 L 12/03/21 00:34 140 H 24 95 12/03/21 00:30 142 H 25 H 12/03/21 00:29 141 H 21 91/60 L 97 12/03/21 00:28 141 H 18 72/53 L 95 12/03/21 00:27 143 H 21 97 12/02/21 23:55 140 H 20 90/50 L 95 12/02/21 23:47 36.6 C 119 H 16 114/79 100 Laboratory Results Laboratory Results WBC 11.93 K/uL (4.8-10.8) H 12/03/21 00:37 RBC 4.04 M/uL (4.7-6.1) L 12/03/21 00:37 Hgb 12.3 g/dL (14.0-18.0) L 12/03/21 00:37 Hct 37.1 % (42-52) L 12/03/21 00:37 MCV 91.8 fL (80-100) 12/03/21 00:37 MCH 30.4 pg (25-34) 12/03/21 00:37 MCHC 33.2 g/dL (32-36) 12/03/21 00:37 RDW Std Deviation 45.9 fL (36.4-46.3) 12/03/21 00:37 RDW Coeff of Bryce 13.6 % (11.5-14.5) 12/03/21 00:37 Plt Count 334 K/uL (130-400) 12/03/21 00:37 MPV 9.5 fL (7.4-10.4) 12/03/21 00:37 Immature Gran % (Auto) 0.3 % 12/03/21 00:37 Neut % (Auto) 77.9 % 12/03/21 00:37 Lymph % (Auto) 12.3 % 12/03/21 00:37 Hart % (Auto) 9.1 % 12/03/21 00:37 Eos % (Auto) 0.2 % 12/03/21 00:37 Baso % (Auto) 0.2 % 12/03/21 00:37 Neut # (Auto) 9.29 K/uL (1.4-6.5) H 12/03/21 00:37 Lymph # (Auto) 1.47 K/uL (1.2-3.4) 12/03/21 00:37 Hart # (Auto) 1.09 K/uL (0.11-0.59) H 12/03/21 00:37 Eos # (Auto) 0.02 K/uL (0-0.5) 12/03/21 00:37 Baso # (Auto) 0.02 K/uL (0-0.2) 12/03/21 00:37 Immature Gran # (Auto) 0.04 K/uL (0.00-0.02) H 12/03/21 00:37 Sodium 130 mmol/L (136-145) L 12/03/21 00:37 Potassium 4.5 mmol/L (3.5-5.1) 12/03/21 00:37 Chloride 97 mmol/L (98-107) L 12/03/21 00:37 Carbon Dioxide 23 mmol/L (21-32) 12/03/21 00:37 Anion Gap 10 (3-11) 12/03/21 00:37 BUN 17 mg/dl (6-23) 12/03/21 00:37 Creatinine 1.20 mg/dl (0.6-1.4) 12/03/21 00:37 Est Cr Clr Drug Dosing Not Reportable 12/03/21 00:37 Est GFR ( Amer) 71.1 ml/min 12/03/21 00:37 Est GFR (Non-Af Amer) 61.3 ml/min 12/03/21 00:37 BUN/Creatinine Ratio 14.2 (10-20) 12/03/21 00:37 Glucose 130 mg/dl (70-99(Fasting)) H 12/03/21 00:37 Calcium 8.7 mg/dl (8.5-10.1) 12/03/21 00:37 Magnesium 1.9 mg/dl (1.7-2.4) 12/03/21 00:37 Total Bilirubin 1.2 mg/dl (0.2-1.0) H 12/03/21 00:37 AST 33 U/L (13-39) 12/03/21 00:37 ALT 53 U/L (7-52) H 12/03/21 00:37 Alkaline Phosphatase 156 U/L (34-104) H 12/03/21 00:37 Troponin I High Sens 9.3 pg/ml (0-20) 12/03/21 03:31 Total Protein 6.7 gm/dl (6.0-8.3) 12/03/21 00:37 Albumin 3.4 gm/dl (3.4-5.0) 12/03/21 00:37 Globulin 3.3 gm/dl (2.5-4.0) 12/03/21 00:37 Albumin/Globulin Ratio 1.0 (0.9-2) 12/03/21 00:37 TSH 1.322 uIu/ml (0.300-4.500) 12/03/21 00:37 Lyme Disease IgG Ab Negative (Negative) 12/03/21 03:31 Lyme Disease IgM Ab Negative (Negative) 12/03/21 03:31 SARS-CoV-2, RNA, NAAT NEGATIVE (NEGATIVE) 12/03/21 02:23 Code Status & VTE Plan Code Status Full code VTE Prophylaxis Plan VTE Prophylaxis will be ordered: Yes Critical Care Time 55 minutes PG Care Time/CCT Total # of Minutes Spent Total Time Spent with Patient: Total time spent is greater than 50% in coordination of care (as documented) at patient's floor/unit and/or counseling patient: Coding Level of Care Code 41869 Initial Inpt Care Lvl 3 Diagnoses Hypertension I10 Hypertension type: essential hypertension Hyperlipidemia E78.00 Hyperlipidemia type: pure hypercholesterolemia Generalized anxiety disorder F41.1 Impaired fasting glucose R73.01 NERIS (obstructive sleep apnea) G47.33 Periodic limb movement disorder G47.61 Acute hypotension I95.9 Comment Total critical care time 55 minutes (1) Hyperlipidemia Hyperlipidemia type: pure hypercholesterolemia Qualified Code(s): E78.00 - Pure hypercholesterolemia, unspecified (2) Hypertension Hypertension type: essential hypertension Qualified Code(s): I10 - Essential (primary) hypertension
[2021-12-03 05:59] LABS: INR 1.3 (0.9-1.1); Prothrombin Time 14.1 Seconds (9.0-12.0)
[2021-12-03 06:08] LABS: C Reactive Protein 10.31 mg/dl (0-0.5); Uric Acid 4.4 mg/dl (2.6-7.2)
[2021-12-03] MEDS: SODIUM CHLORIDE 0.9% 1000ML 1,000 ML IV SCH ×2 (06:16→17:54)
[2021-12-03 07:04] LABS: Adenovirus PCR Not Detected (NotDetected); Bordetella parapertussis PCR Not Detected (NotDetected); Bordetella pertussis PCR Not Detected (NotDetected); Chlamydia pneumoniae PCR Not Detected (NotDetected); Coronavirus 229E PCR Not Detected (NotDetected); Coronavirus CoV-2 (COVID19)PCR Not Detected (NotDetected); Coronavirus HKU1 PCR Not Detected (NotDetected); Coronavirus NL63 PCR Not Detected (NotDetected); Coronavirus OC43PCR Not Detected (NotDetected); Human Metapneumovirus PCR Not Detected (NotDetected); Influenza A PCR Not Detected (NotDetected); Influenza B PCR Not Detected (NotDetected); Mycoplasma pneumoniae PCR Not Detected (NotDetected); Parainfluenza Virus 1 PCR Not Detected (NotDetected); Parainfluenza Virus 2 PCR Not Detected (NotDetected); Parainfluenza Virus 3 PCR Not Detected (NotDetected); Parainfluenza Virus 4 PCR Not Detected (NotDetected); Respiratory Syncytial VirusPCR Not Detected (NotDetected); Rhinovirus/Enterovirus PCR Not Detected (NotDetected)
--- NOTE | 2021-12-03 07:47 | Emergency Department Note ---
Impression & Plan Acute hypotension, Atrial flutter with rapid ventricular [facility] Provider Note NAME: NAZ NGUYEN AGE: 71 SEX: M ARRIVES VIA: Walk-In INFORMANT: Patient and his ED PROVIDER(S): Fanta Ortiz DO CHIEF COMPLAINT: Weakness PLAN: Disposition: Admit to the ICU Condition: Critical MEDICAL DECISION MAKING: This is a 71-year-old male patient who presents to the emergency department for generalized weakness. Patient had been diagnosed with pneumonia by his PCP on 11/23/2021 and treated with a course of antibiotics. explains that he had generalized weakness from this that progressively got worse and he had complete loss of appetite By this evening, the patient's condition had gotten to the point that she demanded he come to the emergency department. Upon presentation here, the patient had significant hypotension with a systolic blood pressure of 68 and was noted to be in atrial flutter with rapid ventricular response at a rate of 140. He has no previous history of A. fib or a flutter. On clinical exam, the patient appeared to be dehydrated and was bolused with IV normal saline solution. This gave only minimal improvement to the patient's blood pressure. The patient's only complaint was of significant nausea. He received 2 doses of IV Zofran. I discussed the case with Dr. Luis from cardiology and we decided to try IV amiodarone as a way to slow the patient's heart rate an d hopefully improve his blood pressure. Unfortunately, the patient's blood pressure dropped precipitously once we started IV amiodarone. At that point, we decided to proceed with emergent electrocardioversion. This was successful in converting the patient to a normal sinus rhythm at a rate of 70. The patient's blood pressure initially rebounded to 96 systolically but then quickly returned to the 60s and 70s systolically.. At that point the patient was started on a Presley-Synephrine drip. This gave the patient good pressure support while keeping the patient's heart rate in the 70s and 80s. I discussed the case with Dr[facility] Sol[facility] and Geremias Ross PA-C from critical care medicine. Triage Nursing notes reviewed and agree with them. Additional history obtained from who is at the bedside Prior medical records reviewed from outpatient office visit Vital Signs: reviewed and remarkable for tachycardia and hypotension Differential diagnosis: A flutter with RVR; cardiac ischemia; pericardial tamponade; cardiomyopathy; dehydration; sepsis; cardiac dysrhythmia ER treatment provided: IV normal saline bolus x2 L IV Zofran x2 IV amiodarone IV Presley-Synephrine drip Emergent synchronized cardioversion-see procedure note below Diagnostics interpreted by me: ECG: Atrial flutter with a 2-1 AV conduction at a rate of 142. There is a right bundle branch block. There is no obvious ectopy. Cardiac Monitoring: Atrial flutter at a rate of 144 Repeat ECG: Normal sinus rhythm at a rate of 73 with T wave inversion laterally concerning for ischemia. Laboratory studies: See below Imaging studies: As per my interpretation Significant cardiomegaly with bilateral pleural effusions Consultation(s): Cardiology Dr. Luis HPI: 71/M arrives for evaluation of. ROS: See above HPI for pertinent positives & negatives. A total of 10 systems reviewed and were otherwise negative. PAST MEDICAL HISTORY:See Below PAST SURGICAL HISTORY:See Below FAMILY HISTORY:See Below SOCIAL HISTORY:See Below HOME MEDICATIONS:See Below ALLERGIES:See Below VITALS:See Below PHYSICAL EXAMINATION: ED COURSE: Times/Reassessments: [id number]: The patient was evaluated upon his arrival in room C9. An order was placed for continuous cardiac monitoring. The patient was in atrial flutter at a rate of 140. A twelve-lead EKG was obtained. 2 large-bore IV locks were initiated and the patient was placed flat as he was so s ignificantly hypotensive. The patient was bolused with 1 L of normal saline solution under pressure. Laboratory studies were drawn. A portable chest x-ray was performed. A second liter of normal saline was bolused. I obtained much of the history from the patient's who was at the bedside. I reviewed previous outpatient records in [facility]. Patient complained of nausea and he was given 4 mg of IV Zofran. The patient's blood pressure did come up into the 80s and 90s systolically. Consulted with cardiology and the patient was started on a amiodarone bolus. During that bolus, the patient's blood pressure dropped precipitously into the 50s systolically. He also became symptomatic feeling near syncopal. That time the decision was made to perform an emergent synchronized cardioversion. See procedure note below. Procedure: Synchronized cardioversion Indication: Unstable atrial flutter with RVR I had verbally reviewed the risks of electrocardioversion with the patient and his we were making plans to do this procedure electively. However the jefferson galindo's condition deteriorated and we had to do it emergently. There was no time to have a consent signed. The patient was on 100% via NRB. Suction, airway equipment, medications, respiratory equipment, ACLS cart, and appropriate personnel were prepared prior to the initiation of the procedure. There was no time to administer IV sedation nor with the patient's blood pressure support this. The biphasic defibrillator was set to 100 joules of energy and synched. After confirmation of sedation and "all clear" safety check the synchronized shock was delivered. This resulted in successful conversion of the dysrhythmia back into sinus rhythm. There were no complications. I kept the patient's abreast of the situation throughout his stay here in the ER. He continued to complain of significant nausea and was given a second dose of IV Zofran. I discussed the case with staff from critical care medicine as well as Dr. Boyle [facility]. They will evaluate the patient for further care. After the synchronized cardioversion, the patient's blood pressure began to drop again and he was started on a Presley-Synephrine drip for pressure support. I have personally spent greater than 120 minutes of critical care time in the direct management of this patient. This includes bedside care, interpretation of diagnostic studies, and testing, discussion with consultants, patient, and family members, and other required patient management activities. This 120 minutes is in excess of all separately billable procedures. Fanta Ortiz DO Past Med/Surg History Medical History Anaphylaxis Anaphylaxis due to hymenoptera venom Anemia Benign colonic polyp Cervical stenosis of spinal canal (03/05/14) Degenerative disc disease, lumbar Generalized anxiety disorder Greater trochanteric pain syndrome of left lower extremity Hearing loss Hyperlipidemia Hypertension Impaired fasting glucose Leg length discrepancy Localized primary osteoarthritis of lower leg NERIS (obstructive sleep apnea) Periodic limb movement disorder Surgical History History of eye surgery History of foot surgery History of lumbar laminectomy History of retained foreign body fully removed History of tonsillectomy Family History Brother Anxiety Hypertension Intellectual disability Sister Breast cancer Mother Hypertension Father Lung cancer Other Asthma Cancer Hearing loss Social History Smoking Status: Former smoker packs per day: 1.5; Smoking End Date: 46 years ago; Number of Years Since Quit: 41; Second Hand Exposure: No; Do You Dip or Chew Tobacco: No; Tobacco Cessation Education Requested by Patient: No Hx Alcohol Use: No Hx Substance Use: No Preferred Language: Upper Sorbian Communication Ability: Effective Visual Impairment: Limited Hearing Ability: Use of Hearing Aid Scaffold Erector Required: No Beliefs That Will Affect Care: None marital status: Current Living Situation: Spouse current occupational status: retired current occupation: [employer] How many Children do You have: 0 Other Information That Helps Us Care for You: No Feels Safe at Home: Yes Safety Concerns: Feels Safe At This Time Childhood Exposure to Second-Hand Smoke: No caffeine: Yes Dental Care, Regularly: Yes Physical Activity Frequency: Daily Seatbelt Use: always Sunscreen Use: Yes Assistive Devices: Glasses and Hearing Aid - Bilateral Allergies Allergies Allergy/AdvReac Type Severity Reaction Status Date / Time Bactrim Allergy Unknown RASH Verified 06/23/17 10:52 bee venom protein (honey bee) Allergy Unknown SHORTNESS Verified 12/03/21 02:13 OF BREATH sulfamethoxazole Allergy Unknown RASH Verified 12/03/21 02:13 trimethoprim Allergy Unknown RASH Verified 12/03/21 02:13 morphine AdvReac rash Verified 12/03/21 02:13 Home Meds Home Medications Medication Instructions Recorded Confirmed aspirin 81 mg tablet 81 mg PO DAILY tab 04/01/19 12/03/21 calcium citrate 250 mg 2 tab PO DAILY tab 04/01/19 12/03/21 calcium-vitamin D3 5 mcg (200 unit) tablet chromium picolinate 1,000 mcg 1,000 mcg PO DAILY tab 04/01/19 12/03/21 tablet cinnamon bark 500 mg capsule 1,000 mg PO DAILY cap 04/01/19 12/03/21 (Cinnamon) cyanocobalamin (vitamin B-12) 1,000 mcg PO DAILY tab 04/01/19 12/03/21 1,000 mcg tablet folic acid 800 mcg tablet 0.8 mg PO DAILY tab 04/01/19 12/03/21 omega-3 acid ethyl esters 1 gram 2 cap PO DAILY cap 04/01/19 12/03/21 capsule ascorbic acid (vitamin C) 500 mg 500 mg PO DAILY cap 07/31/19 12/03/21 capsule multivitamin 1 tab PO DAILY 07/31/19 12/03/21 psyllium husk-calcium 1 gram-60 mg 1 cap PO BID cap 07/31/19 12/03/21 capsule (Metamucil Plus Calcium) [id number] 100 mcg-lut 1.66 1 tab PO DAILY tab 09/23/20 12/03/21 mg-zeaxanth 0.83 mg tablet,delay rel. (Icaps MV) carboxymethylcellulose sodium 0.5 1 drp OPHTHALMIC (EYE) BID 11/06/20 12/03/21 % eye drops (Refresh Tears) fluoride (sodium) 1.1 % dental 1 applic DENTAL DAILY 11/06/20 12/03/21 cream (SF 5000 Plus) Previous Rx's Medication Instructions Recorded lorazepam 0.5 mg tablet 0.5 mg PO DAILY PRN #30 tab 11/05/19 lisinopril 10 mg tablet 10 mg PO DAILY #90 tab 03/11/21 epinephrine 0.3 mg/0.3 mL 0.3 mg IM Q15M PRN #2 ea 03/15/21 injection, auto-injector clonazepam 0.5 mg tablet 0.5 mg PO DAILY #30 tab 10/06/21 doxycycline hyclate 100 mg capsule 100 mg PO BID 7 Days #14 cap 11/23/21 Results & Data (ED) Vital Signs Vital Signs - 24 hr 12/02/21 23:47 12/02/21 23:55 12/03/21 00:27 Temperature 36.6 C Temperature Source Temporal Artery Scan Pulse Rate 119 H 143 H Pulse Rate [Apical] 140 H Pulse Rate from SpO2 Sensor 143 H Pulse Rhythm Respiratory Rate 16 20 21 Blood Pressure 114/79 Blood Pressure [Left Arm] 90/50 L Blood Pressure Mean 90 Blood Pressure Mean [Left Arm] 63 Pulse Oximetry 100 95 97 Oxygen Delivery Method Room Air Room Air Oxygen Flow Rate 0 Sepsis Recent Fever Within 48 Hours No Sepsis New/Unexplained Change in Mental Status N/A Sepsis Action Taken by Nursing No Action Required Oxygen Flow Rate - Titration 3 Pulse Oximetry Post Tiitration 100 12/03/21 00:28 12/03/21 00:29 12/03/21 00:30 Temperature Temperature Source Pulse Rate 141 H 141 H 142 H Pulse Rate [Apical] Pulse Rate from SpO2 Sensor 142 H 142 H Pulse Rhythm Respiratory Rate 18 21 25 H Blood Pressure 72/53 L 91/60 L Blood Pressure [Left Arm] Blood Pressure Mean 59 70 Blood Pressure Mean [Left Arm] Pulse Oximetry 95 97 Oxygen Delivery Method Oxygen Flow Rate Sepsis Recent Fever Within 48 Hours Sepsis New/Unexplained Change in Mental Status Sepsis Action Taken by Nursing Oxygen Flow Rate - Titration Pulse Oximetry Post Tiitration 12/03/21 00:34 12/03/21 00:38 12/03/21 00:40 Temperature Temperature Source Pulse Rate 140 H 141 H 140 H Pulse Rate [Apical] Pulse Rate from SpO2 Sensor Pulse Rhythm Irregular Respiratory Rate 24 20 20 Blood Pressure 75/58 L Blood Pressure [Left Arm] Blood Pressure Mean 63 Blood Pressure Mean [Left Arm] Pulse Oximetry 95 Oxygen Delivery Method Nasal Cannula Oxygen Flow Rate Sepsis Recent Fever Within 48 Hours Sepsis New/Unexplained Change in Mental Status Sepsis Action Taken by Nursing Oxygen Flow Rate - Titration Pulse Oximetry Post Tiitration 12/03/21 00:42 12/03/21 00:44 12/03/21 00:50 Temperature Temperature Source Pulse Rate 138 H 137 H 140 H Pulse Rate [Apical] Pulse Rate from SpO2 Sensor 143 H Pulse Rhythm Respiratory Rate 23 20 20 Blood Pressure 89/54 L 87/60 L 84/62 L Blood Pressure [Left Arm] Blood Pressure Mean 65 69 69 Blood Pressure Mean [Left Arm] Pulse Oximetry 78 L Oxygen Delivery Method Oxygen Flow Rate Sepsis Recent Fever Within 48 Hours Sepsis New/Unexplained Change in Mental Status Sepsis Action Taken by Nursing Oxygen Flow Rate - Titration Pulse Oximetry Post Tiitration 12/03/21 00:52 12/03/21 00:55 12/03/21 01:00 Temperature Temperature Source Pulse Rate 140 H 141 H 141 H Pulse Rate [Apical] Pulse Rate from SpO2 Sensor 141 H 141 H 146 H Pulse Rhythm Respiratory Rate 21 20 21 Blood Pressure 80/56 L 86/69 L 82/64 L Blood Pressure [Left Arm] Blood Pressure Mean 64 74 70 Blood Pressure Mean [Left Arm] Pulse Oximetry 92 89 L 95 Oxygen Delivery Method Oxygen Flow Rate Sepsis Recent Fever Within 48 Hours Sepsis New/Unexplained Change in Mental Status Sepsis Action Taken by Nursing Oxygen Flow Rate - Titration Pulse Oximetry Post Tiitration 12/03/21 01:05 12/03/21 01:10 12/03/21 01:15 Temperature Temperature Source Pulse Rate 143 H 144 H 144 H Pulse Rate [Apical] Pulse Rate from SpO2 Sensor 151 H 143 H 147 H Pulse Rhythm Respiratory Rate 23 21 21 Blood Pressure 81/69 L 96/59 L 76/61 L Blood Pressure [Left Arm] Blood Pressure Mean 73 71 66 Blood Pressure Mean [Left Arm] Pulse Oximetry 74 L 92 100 Oxygen Delivery Method Oxygen Flow Rate Sepsis Recent Fever Within 48 Hours Sepsis New/Unexplained Change in Mental Status Sepsis Action Taken by Nursing Oxygen Flow Rate - Titration Pulse Oximetry Post Tiitration 12/03/21 01:20 12/03/21 01:25 12/03/21 01:30 Temperature Temperature Source Pulse Rate 144 H 144 H 145 H Pulse Rate [Apical] Pulse Rate from SpO2 Sensor 146 H 142 H 143 H Pulse Rhythm Respiratory Rate 23 22 23 Blood Pressure 80/65 L 78/56 L 87/53 L Blood Pressure [Left Arm] Blood Pressure Mean 70 63 64 Blood Pressure Mean [Left Arm] Pulse Oximetry 96 98 98 Oxygen Delivery Method Oxygen Flow Rate Sepsis Recent Fever Within 48 Hours Sepsis New/Unexplained Change in Mental Status Sepsis Action Taken by Nursing Oxygen Flow Rate - Titration Pulse Oximetry Post Tiitration 12/03/21 01:35 12/03/21 01:40 12/03/21 01:41 Temperature Temperature Source Pulse Rate 141 H 145 H 144 H Pulse Rate [Apical] Pulse Rate from SpO2 Sensor 149 H 141 H 147 H Pulse Rhythm Respiratory Rate 22 23 24 Blood Pressure 74/59 L 66/49 L 69/55 L Blood Pressure [Left Arm] Blood Pressure Mean 64 54 59 Blood Pressure Mean [Left Arm] Pulse Oximetry 88 L 96 100 Oxygen Delivery Method Oxygen Flow Rate Sepsis Recent Fever Within 48 Hours Sepsis New/Unexplained Change in Mental Status Sepsis Action Taken by Nursing Oxygen Flow Rate - Titration Pulse Oximetry Post Tiitration 12/03/21 01:43 12/03/21 01:46 12/03/21 01:50 Temperature Temperature Source Pulse Rate 141 H 137 H Pulse Rate [Apical] Pulse Rate from SpO2 Sensor 143 H 136 H 139 H Pulse Rhythm Respiratory Rate 23 24 Blood Pressure 67/53 L 55/36 L 63/51 L Blood Pressure [Left Arm] Blood Pressure Mean 57 42 55 Blood Pressure Mean [Left Arm] Pulse Oximetry 100 97 68 L Oxygen Delivery Method Oxygen Flow Rate Sepsis Recent Fever Within 48 Hours Sepsis New/Unexplained Change in Mental Status Sepsis Action Taken by Nursing Oxygen Flow Rate - Titration Pulse Oximetry Post Tiitration 12/03/21 01:57 12/03/21 01:58 12/03/21 02:00 Temperature Temperature Source Pulse Rate 73 72 73 Pulse Rate [Apical] Pulse Rate from SpO2 Sensor 156 H 178 H 214 H Pulse Rhythm Respiratory Rate 22 19 24 Blood Pressure 68/49 L 67/50 L 62/50 L Blood Pressure [Left Arm] Blood Pressure Mean 55 55 54 Blood Pressure Mean [Left Arm] Pulse Oximetry 81 L 67 L 70 L Oxygen Delivery Method Oxygen Flow Rate Sepsis Recent Fever Within 48 Hours Sepsis New/Unexplained Change in Mental Status Sepsis Action Taken by Nursing Oxygen Flow Rate - Titration Pulse Oximetry Post Tiitration 12/03/21 02:04 12/03/21 02:06 12/03/21 02:08 Temperature Temperature Source Pulse Rate 77 78 74 Pulse Rate [Apical] Pulse Rate from SpO2 Sensor 78 78 75 Pulse Rhythm Respiratory Rate 22 23 21 Blood Pressure 90/46 L 69/47 L Blood Pressure [Left Arm] Blood Pressure Mean 60 54 58 Blood Pressure Mean [Left Arm] Pulse Oximetry 99 100 100 Oxygen Delivery Method Oxygen Flow Rate Sepsis Recent Fever Within 48 Hours Sepsis New/Unexplained Change in Mental Status Sepsis Action Taken by Nursing Oxygen Flow Rate - Titration Pulse Oximetry Post Tiitration 12/03/21 02:10 12/03/21 02:14 12/03/21 02:18 Temperature Temperature Source Pulse Rate 76 77 75 Pulse Rate [Apical] Pulse Rate from SpO2 Sensor 77 77 76 Pulse Rhythm Respiratory Rate 21 20 18 Blood Pressure 121/92 66/49 L Blood Pressure [Left Arm] Blood Pressure Mean 101 54 Blood Pressure Mean [Left Arm] Pulse Oximetry 100 100 99 Oxygen Delivery Method Oxygen Flow Rate Sepsis Recent Fever Within 48 Hours Sepsis New/Unexplained Change in Mental Status Sepsis Action Taken by Nursing Oxygen Flow Rate - Titration Pulse Oximetry Post Tiitration 12/03/21 02:20 12/03/21 02:25 12/03/21 02:30 Temperature Temperature Source Pulse Rate 77 77 77 Pulse Rate [Apical] Pulse Rate from SpO2 Sensor 77 77 113 H Pulse Rhythm Respiratory Rate 24 Blood Pressure 61/48 L 63/48 L 67/53 L Blood Pressure [Left Arm] Blood Pressure Mean 52 53 57 Blood Pressure Mean [Left Arm] Pulse Oximetry 98 97 95 Oxygen Delivery Method Oxygen Flow Rate Sepsis Recent Fever Within 48 Hours Sepsis New/Unexplained Change in Mental Status Sepsis Action Taken by Nursing Oxygen Flow Rate - Titration Pulse Oximetry Post Tiitration 12/03/21 02:35 12/03/21 02:40 12/03/21 02:45 Temperature Temperature Source Pulse Rate 74 75 74 Pulse Rate [Apical] Pulse Rate from SpO2 Sensor 74 75 74 Pulse Rhythm Respiratory Rate 22 23 Blood Pressure 64/48 L 62/44 L 65/50 L Blood Pressure [Left Arm] Blood Pressure Mean 53 50 55 Blood Pressure Mean [Left Arm] Pulse Oximetry 97 97 97 Oxygen Delivery Method Oxygen Flow Rate Sepsis Recent Fever Within 48 Hours Sepsis New/Unexplained Change in Mental Status Sepsis Action Taken by Nursing Oxygen Flow Rate - Titration Pulse Oximetry Post Tiitration Laboratory Data Result diagrams: 12/03/21 00:37 12/03/21 00:37 Lab Results 12/03/21 12/03/21 12/03/21 Range/Units 00:37 00:37 00:37 WBC 11.93 H (4.8-10.8) K/uL RBC 4.04 L (4.7-6.1) M/uL Hgb 12.3 L (14.0-18.0) g/dL Hct 37.1 L (42-52) % MCV 91.8 (80-100) fL MCH 30.4 (25-34) pg MCHC 33.2 (32-36) g/dL RDW Std Deviation 45.9 (36.4-46.3) fL RDW Coeff of Bryce 13.6 (11.5-14.5) % Plt Count 334 (130-400) K/uL MPV 9.5 (7.4-10.4) fL Immature Gran % (Auto) 0.3 % Neut % (Auto) 77.9 % Lymph % (Auto) 12.3 % [place] % (Auto) 9.1 % Eos % (Auto) 0.2 % Baso % (Auto) 0.2 % Neut # (Auto) 9.29 H (1.4-6.5) K/uL Lymph # (Auto) 1.47 (1.2-3.4) K/uL Madison # (Auto) 1.09 H (0.11-0.59) K/uL Eos # (Auto) 0.02 (0-0.5) K/uL Baso # (Auto) 0.02 (0-0.2) K/uL Immature Gran # (Auto) 0.04 H (0.00-0.02) K/uL Sodium 130 L (136-145) mmol/L Potassium 4.5 (3.5-5.1) mmol/L Chloride 97 L (98-107) mmol/L Carbon Dioxide 23 (21-32) mmol/L Anion Gap 10 (3-11) BUN 17 (6-23) mg/dl Creatinine 1.20 (0.6-1.4) mg/dl Est Cr Clr Drug Dosing Not Reportable Est GFR ( Amer) 71.1 ml/min Est GFR (Non-Af Amer) 61.3 ml/min BUN/Creatinine Ratio 14.2 (10-20) Glucose 130 H (70-99(Fasting)) mg/dl Calcium 8.7 (8.5-10.1) mg/dl Magnesium 1.9 (1.7-2.4) mg/dl Total Bilirubin 1.2 H (0.2-1.0) mg/dl AST 33 (13-39) U/L ALT 53 H (7-52) U/L Alkaline Phosphatase 156 H (34-104) U/L Troponin I High Sens 8.5 (0-20) pg/ml Total Protein 6.7 (6.0-8.3) gm/dl Albumin 3.4 (3.4-5.0) gm/dl Globulin 3.3 (2.5-4.0) gm/dl Albumin/Globulin Ratio 1.0 (0.9-2) TSH 1.322 (0.300-4.500) uIu/ml SARS-CoV-2, RNA, NAAT (NEGATIVE) 12/03/21 Range/Units 02:23 WBC (4.8-10.8) K/uL RBC (4.7-6.1) M/uL Hgb (14.0-18.0) g/dL Hct (42-52) % MCV (80-100) fL MCH (25-34) pg MCHC (32-36) g/dL RDW Std Deviation (36.4-46.3) fL RDW Coeff of Bryce (11.5-14.5) % Plt Count (130-400) K/uL MPV (7.4-10.4) fL Immature Gran % (Auto) % Neut % (Auto) % Lymph % (Auto) % Madison % (Auto) % Eos % (Auto) % Baso % (Auto) % Neut # (Auto) (1.4-6.5) K/uL Lymph # (Auto) (1.2-3.4) K/uL Madison # (Auto) (0.11-0.59) K/uL Eos # (Auto) (0-0.5) K/uL Baso # (Auto) (0-0.2) K/uL Immature Gran # (Auto) (0.00-0.02) K/uL Sodium (136-145) mmol/L Potassium (3.5-5.1) mmol/L Chloride (98-107) mmol/L Carbon Dioxide (21-32) mmol/L Anion Gap (3-11) BUN (6-23) mg/dl Creatinine (0.6-1.4) mg/dl Est Cr Clr Drug Dosing Est GFR ( Amer) ml/min Est GFR (Non-Af Amer) ml/min BUN/Creatinine Ratio (10-20) Glucose (70-99(Fasting)) mg/dl Calcium (8.5-10.1) mg/dl Magnesium (1.7-2.4) mg/dl Total Bilirubin (0.2-1.0) mg/dl AST (13-39) U/L ALT (7-52) U/L Alkaline Phosphatase (34-104) U/L Troponin I High Sens (0-20) pg/ml Total Protein (6.0-8.3) gm/dl Albumin (3.4-5.0) gm/dl Globulin (2.5-4.0) gm/dl Albumin/Globulin Ratio (0.9-2) TSH (0.300-4.500) uIu/ml SARS-CoV-2, RNA, NAAT NEGATIVE (NEGATIVE) Administered Medications Phenylephrine HCl 20 mg/ (Dextrose) 502 mls @ 164.003 mls/hr IV .Q3H4M BINA; Protocol Stop: 01/02/22 02:44 Last Admin: 12/03/21 06:16 Dose: Not Given Documented by: [id number] Titration: 12/03/21 05:37 Dose: 0 mcg/kg/min, 0 mls/hr Documented by: [id number] Titration: 12/03/21 03:51 Dose: 0.9 mcg/kg/min, 164 mls/hr Documented by: [id number] Admin: 12/03/21 02:54 Dose: 0.5 mcg/kg/min, 91.1 mls/hr Documented by: [id number] Cosigned by: [id number] Norepinephrine Bitartrate (Levophed/D5w) 8 mg in 508 mls @ 23.051 mls/hr IV .Q22H3M BINA; Protocol Stop: 01/02/22 05:44 Last Titration: 12/03/21 07:08 Dose: 0.05 mcg/kg/min, 23.1 mls/hr Documented by: [id number] Cosigned by: [id number] Admin: 12/03/21 05:36 Dose: 0.05 mcg/kg/min, 23.1 mls/hr Documented by: [id number] Cosigned by: [id number] Sodium Chloride (Nss 1000ml) 1,000 mls @ 100 mls/hr IV .Q10H BINA Stop: 01/02/22 05:44 Last Admin: 12/03/21 06:16 Dose: 100 mls/hr Documented by: [id number] Discontinued Medications Aspirin (Aspirin 81 Mg Chew) 243 mg PO NOW STA Stop: 12/03/21 03:14 Last Admin: 12/03/21 03:38 Dose: 243 mg Documented by: [id number] Colchicine (Colchicine 0.6 Mg Tab) 0.6 mg PO NOW ONE Stop: 12/03/21 03:12 Last Admin: 12/03/21 03:39 Dose: 0.6 mg Documented by: [id number] Famotidine (Famotidine 20mg/5ml Iv Push) Confirm Administered Dose 20 mg IV .STK-MED ONE Stop: 12/03/21 03:44 Last Admin: 12/03/21 03:45 Dose: 20 mg Documented by: [id number] Sodium Chloride (Nss 1000ml) 1,000 mls @ 999 mls/hr IV .Q1H1M BINA Stop: 12/03/21 01:45 Last Infusion: 12/03/21 02:31 Dose: 0 mls/hr Documented by: [id number] Admin: 12/03/21 01:30 Dose: 999 mls/hr Documented by: [id number] Amiodarone HCl/Dextrose (Nexterone / D5w) 150 mg in 100 mls @ 600 mls/hr IV NOW STA Stop: 12/03/21 01:42 Last Infusion: 12/03/21 01:51 Dose: 0 mls/hr Documented by: [id number] Cosigned by: [id number] Admin: 12/03/21 01:40 Dose: 600 mls/hr Documented by: [id number] Cosigned by: [id number] Methylprednisolone (Methylprednisolone 125 Mg/2 Ml Vial) 60 mg IV NOW STA Stop: 12/03/21 03:17 Last Admin: 12/03/21 03:37 Dose: 60 mg Documented by: [id number] Miscellaneous (Stat Iv Infusion Titration Per Protocol) 1 ea N/A NOW STA Stop: 12/03/21 02:38 Last Admin: 12/03/21 02:59 Dose: Not Given Documented by: [id number] Miscellaneous (Stat Iv Infusion Titration Per Protocol) 1 ea N/A NOW STA Stop: 12/03/21 02:39 Last Admin: 12/03/21 02:59 Dose: Not Given Documented by: [id number] Norepinephrine Bitartrate (Norepinephrine/D5w 8 Mg/508 Ml) Confirm Administered Dose 8 mg IV .STK-MED ONE Stop: 12/03/21 05:35 Last Admin: 12/03/21 05:37 Dose: Not Given Documented by: [id number] Ondansetron HCl (Ondansetron Inj 2 Mg/Ml 2 Ml Vial) Confirm Administered Dose 4 mg .ROUTE .STK-MED ONE Stop: 12/03/21 00:42 Last Admin: 12/03/21 01:30 Dose: 4 mg Documented by: [id number] Ondansetron HCl (Ondansetron Inj 2 Mg/Ml 2 Ml Vial) Confirm Administered Dose 4 mg .ROUTE .STK-MED ONE Stop: 12/03/21 02:01 Last Admin: 12/03/21 02:19 Dose: 4 mg Documented by: [id number] Discharge Plan Visit Data Chief Complaint: Weakness Stated Complaint: WEAKNESS,NOT EATING/DRINKING ED Provider: Fanta Ortiz Discharge Problem: Acute hypotension, Atrial flutter with rapid ventricular response Patient Disposition: Admitted As Inpatient Discharge Instructions Interventions: ED Discharge Assessment Last Done: 12/03/21 04:37
--- NOTE | 2021-12-03 08:13 | Procedure Note ---
Procedure Note Date of Service December 03, 2021 Note Bedside Ultrasound: Patient was on 0.05 Levophed during examination Lung: Implants appreciated bilaterally anteriorly Minimal B-lines bilaterally posteriorly Minimal pleural effusion bilaterally Heart: Pericardial effusion appreciated anterior and posterior EF seems to be preserved. No clear evidence of diastolic collapse of the right ventricle or the right atrium Please note the above document was generated using voice recognition software. It may contain grammatical, syntax or spelling errors.Any formal questions or concerns about the content, text or information contained within the body of this dictation should be directly addressed to the provider for clarification. Coding CPT Codes Pulmonary/Thoracic - Pulmonary and Thoracic: 41668 US, Chest, real time with imaging documentation ([id number]) [facility] [place] Codes (Charges) Pulmonary/Thoracic Procedure 1: Pulmonary and Thoracic: 63864 US, Chest, real time with imaging documentation
--- NOTE | 2021-12-03 08:16 | Critical Care Progress Note ---
Date of Service December 03, 2021 Assessment & Plan (1) Admitted to intensive care unit: (2) Acute hypotension: Plan: Reason Critically Ill: 71-year-old male presenting with hypotension, generalized fatigue, and a flutter. Patient cardioverted in the emergency department and now with persistent hypotension requiring close hemodynamic monitoring and initiation of vasopressors. NEURO - * CAM ICU: NEGATIVE CARDIAC/VASCULAR - --Hypotension: Multifactorial Likely from pericardial effusion with A. fib RVR, s/p cardioversion in the ED Continue vasopressor support to keep MAP rater than 65 --Pericardial effusion Etiology is unknown Viral symptoms could be one of the reasons Cardiology on board for pericardiocentesis --New onset A flutter: * S/p cardioversion * Currently normal sinus rhythm * EKG: NSR @ 73 bpm. T wave inversions noted septal/laterally. QTc 438 ms. * Monitor on telemetry. RESPIRATORY - * Acute hypoxic respiratory failure: * Likely from pulmonary edema from A. fib with RVR * O2 supplementation to keep oxygen saturation around 90% GI/NUTRITION - * Transaminitis Likely from hypotensive episode Continue to monitor RENAL/LYTES - * TONY Follow-up urine lites Monitor BUN/creatinine Avoid nephrotoxic medications Strict ins and outs - * Disla in place - Strict I&Os. ENDO - * No h/o DM or Thyroid Dz * BSGs per unit protocol. ISS --> gtt per unit policy. HEME - * Stable H&H ID - * COVID-19 PCR negative Influenza A/B negative Procalcitonin 1.13 Patient has completed course of doxycycline as an outpatient Continue with azithromycin and Rocephin while in the hospital --Prophylaxis VTE: IPC GI: Pepcid Lines: Peripheral Diet: N.p.o. Plan: In/out: +1.3 L, urine output 125 Patient does seem to have significant pericardial effusion Case was discussed with Dr. hTrasher. He is going to have an official 2D echo and see if any intervention is needed Try to titrate down Levophed I have personally additional 40 minutes of critical care time in the direct management of this patient. This is a life/limb threatening event. This includes time spent evaluating patient, direct bedside care, chart review, placing orders, interpretation of diagnostic studies, discussion with consultants, patient, and family members, as well as other required patient management activities. This time is exclusive of all separately billable procedures, and teaching time and separate from and in addition to any other critical care service time. Thank you for allowing us to participate in the care of this patient. Please refer to my attending physician's documentation for any further recommendations. (3) Weakness: (4) Atrial flutter: Admission and Anticipated Discharge Date Admission Date: December 03, 2021 Subjective Patient seen and examined at bedside. No acute distress Patient was on 0.05 of Levophed at the time of examination He did complain of mild nausea No headache, no blurry vision. No significant shortness of breath Denies any palpitation or dizziness Review of Systems Review of Systems: All systems reviewed & are unremarkable except as noted in Subjective Physical Exam Physical Exam: Constitutional: No acute distress HEENT: EOMI, PERRLA Respiratory system: Decreased air entry bilaterally, no wheeze, rhonchi, mild crackles bilateral lower lobes CVS: S1-S2 positive, no murmurs or gallops Abdomen: Soft, nontender, nondistended, positive bowel sounds x4 Extremities: +2 pulses bilaterally radialis/ dorsalis pedis, no cyanosis, no edema Neuro: Awake alert oriented x3 Psych: Normal mood and affect G/U: Positive Disla Skin: no rashes, warm and dry Lymphatic: no cervical or axillary lymphadenopathy Results & Data Results & Data ([facility]) Vital Signs (Past 12 Hours) Vital Signs Temp Pulse Pulse Resp BP BP Pulse Ox 12/03/21 05:31 73 20 73/55 L 98 12/03/21 05:30 72 20 98 12/03/21 05:25 70 19 86/68 L 98 12/03/21 05:21 68 19 89/66 L 98 12/03/21 05:15 70 23 97 12/03/21 05:11 71 24 85/64 L 97 12/03/21 05:05 71 20 83/66 L 98 12/03/21 05:00 36.6 C 72 70 23 85/57 L 85/57 L 97 12/03/21 04:56 73 19 81/59 L 97 12/03/21 04:50 74 26 H 83/54 L 95 12/03/21 04:46 76 25 H 81/56 L 98 12/03/21 04:45 75 24 97 12/03/21 04:42 36.8 C 71 76 20 83/54 L 85/57 L 95 12/03/21 04:38 74 19 79/33 L 100 12/03/21 04:30 9 L 12/03/21 04:15 66 21 86/69 L 97 12/03/21 04:05 67 23 92/63 L 96 12/03/21 04:00 68 21 83/64 L 97 12/03/21 03:56 68 21 106/63 97 12/03/21 03:51 68 22 88/62 L 97 12/03/21 03:45 68 22 81/67 L 100 12/03/21 03:40 69 27 H 106/63 98 12/03/21 03:35 68 22 92/58 L 97 12/03/21 03:32 69 23 90/57 L 97 12/03/21 03:21 68 21 86/57 L 95 12/03/21 03:16 70 23 98/53 L 96 12/03/21 03:10 68 23 94/57 L 98 12/03/21 03:06 71 23 82/56 L 96 12/03/21 02:45 74 23 65/50 L 97 12/03/21 02:40 75 22 62/44 L 97 12/03/21 02:35 74 23 64/48 L 97 12/03/21 02:30 77 24 67/53 L 95 12/03/21 02:25 77 22 63/48 L 97 12/03/21 02:20 77 22 61/48 L 98 12/03/21 02:18 75 18 66/49 L 99 12/03/21 02:14 77 20 121/92 100 12/03/21 02:10 76 21 100 12/03/21 02:08 74 21 100 12/03/21 02:06 78 23 69/47 L 100 12/03/21 02:04 77 22 90/46 L 99 12/03/21 02:00 73 24 62/50 L 70 L 12/03/21 01:58 72 19 67/50 L 67 L 12/03/21 01:57 73 22 68/49 L 81 L 12/03/21 01:50 63/51 L 68 L 12/03/21 01:46 137 H 24 55/36 L 97 12/03/21 01:43 141 H 23 67/53 L 100 12/03/21 01:41 144 H 24 69/55 L 100 12/03/21 01:40 145 H 23 66/49 L 96 12/03/21 01:35 141 H 22 74/59 L 88 L 12/03/21 01:30 145 H 23 87/53 L 98 12/03/21 01:25 144 H 22 78/56 L 98 12/03/21 01:20 144 H 23 80/65 L 96 12/03/21 01:15 144 H 21 76/61 L 100 12/03/21 01:10 144 H 21 96/59 L 92 12/03/21 01:05 143 H 23 81/69 L 74 L 12/03/21 01:00 141 H 21 82/64 L 95 12/03/21 00:55 141 H 20 86/69 L 89 L 12/03/21 00:52 140 H 21 80/56 L 92 12/03/21 00:50 140 H 20 84/62 L 78 L 12/03/21 00:44 137 H 20 87/60 L 12/03/21 00:42 138 H 23 89/54 L 12/03/21 00:40 140 H 20 12/03/21 00:38 141 H 20 75/58 L 12/03/21 00:34 140 H 24 95 12/03/21 00:30 142 H 25 H 12/03/21 00:29 141 H 21 91/60 L 97 12/03/21 00:28 141 H 18 72/53 L 95 12/03/21 00:27 143 H 21 97 12/02/21 23:55 140 H 20 90/50 L 95 12/02/21 23:47 36.6 C 119 H 16 114/79 100 Laboratory Results 12/03/21 00:37 12/03/21 00:37 Coding Level of Care Code Critical Care ea addt'l 30 min Diagnoses Admitted to intensive care unit Z78.9 Acute hypotension I95.9 Weakness R53.1 Atrial flutter I48.92 Time Spent (min) 40 Comment [id number] plus [id number]
--- NOTE | 2021-12-03 08:40 | XRay Report ---
SINGLE VIEW CHEST CLINICAL HISTORY: Generalized weakness.. FINDINGS: An AP, portable, upright chest radiograph is compared to study dated 11/23/2021. The heart is enlarged noting atherosclerotic calcification of the thoracic aorta. The pulmonary vasculature is no ncongested. Enlargement Emphysema and chronic interstitial thickening is similar to previous. There is a small left pleural effusion with left basilar consolidation. There is no pneumothorax. The skele jonny structures appear osteopenic. The bony thorax appears intact. Fusion hardware is noted in the low er cervical region. IMPRESSION: 1. Cardiomegaly and emphysema. 2. There is a left pleural effusion with left basilar consolidation. This is similar appearance to pr evious. ACT 112: Negative or not required by law. Electronically signed by: Jordy Santana M.D. 12/03/2021 8:39 AM
--- NOTE | 2021-12-03 08:51 | XCELERA ---
[id number] \\[id number]
[2021-12-03] MEDS ORDERED: COLCHICINE 0.6 MG TAB PO SCH (09:00)
[2021-12-03] MEDS ORDERED: ASPIRIN 81 MG ECTAB PO SCH (09:00)
[2021-12-03] MEDS: CYANOCOBALAMIN (B-12) 500 MCG TABLET PO SCH (09:18)
[2021-12-03] MEDS: ASCORBIC ACID 500 MG TAB PO SCH (09:18)
[2021-12-03] MEDS: CALCIUM 600MG + VIT D 400 IU TAB PO SCH (09:18)
[2021-12-03] MEDS: ARTIFICIAL TEARS OP SCH ×2 (09:18→21:00)
--- NOTE | 2021-12-03 09:22 | Medical Student Progress Note ---
Date of Service December 03, 2021 Assessment & Plan (1) Acute hypotension: Plan: Acute hypotension. Etiology unclear, possibly due to cardiac tamponade. Waiting for cocksackie results. Continue fluid and pressors for hypotension Continue colchicine Cardiology performed pericardiocentesis, drained 260 ml of serosanguinous fluid. Cytology, cell count, and cultures pending (2) Atrial flutter with rapid ventricular response: Plan: Still in a-flutter but heart rate in the 70s Monitor for now, consider anticoagulation vs. catheter ablation following resolution of hypotension Plan: FEN/GI: Heart healthy ppx: SCDs code: full dispo: ICU Admission and Anticipated Discharge Date Admission Date: December 03, 2021 Supervising Attestation I personally examined the patient and verified all smith points of history and exam, discussed case, and agree with decision making with Yoselin Milian MS4 feeling better after pericardiocentesis discussed ddx and current working plan, answered all questions to the best of my ability otherwise as above Jessi Miguel is a 71 year old male presenting to the ED last night for weakness, fever, and lightheadedness. Near the end of October he received the pneumococcal vaccine. Within a few days he experienced weakness and fatigue. He had one fall within a few days after the vaccine where he felt he lost his balance in the bathroom. He said the fall was slow and he did not injure himself. He did not have lightheadedness or vertigo or any focal weakness or blurred vision at that time. On 11/22 he saw his PCP for fever and fatigue and was given Doxy for a pneumonia. He felt improved following the the end of his abx course. Over the past 1-2 days he has had increasing fatigue, weakness, and a fever as high has 103F last night. He had associated lightheadedness. He came to the ED last night presenting with hypotension and atrial flutter in RVR. He was given fluid and then phenylephrine for pressures and amiodarone and cardioversion for a flutter. Flutter continued 2-1 but sinus in the 60-70s. He feels improved today. He has some substernal chest pain associated with nausea that began about 10 days ago with the onset of the pneumonia. He does not have any shortness of breath. Review of Systems Review of Systems: All systems reviewed & are unremarkable except as noted in HPI & below Physical Exam Physical Exam: General: Alert and oriented x 3. No acute distress Pulm: clear to auscultation, no wheezes/rales/rhonchi, no clubbing Cardiac: minimal to distant heart sounds, good capillary refill Abdominal: Normal bowel sounds. Nontender, nondistended, soft. Results & Data ([facility]) Vital Signs (Past 12 Hours) Vital Signs Temp Pulse Pulse Resp BP BP Pulse Ox 12/03/21 08:37 36.6 C 12/03/21 07:46 66 22 113/78 97 12/03/21 07:45 66 23 96 12/03/21 07:30 66 23 108/73 97 12/03/21 07:16 69 21 98/76 L 98 12/03/21 07:15 70 21 94 12/03/21 07:06 68 23 100/72 97 12/03/21 07:01 68 20 69/53 L 96 12/03/21 07:00 70 22 80 L 12/03/21 05:31 73 20 73/55 L 98 12/03/21 05:30 72 20 98 12/03/21 05:25 70 19 86/68 L 98 12/03/21 05:21 68 19 89/66 L 98 12/03/21 05:15 70 23 97 12/03/21 05:11 71 24 85/64 L 97 12/03/21 05:05 71 20 83/66 L 98 12/03/21 05:00 36.6 C 72 70 23 85/57 L 85/57 L 97 12/03/21 04:56 73 19 81/59 L 97 12/03/21 04:50 74 26 H 83/54 L 95 12/03/21 04:46 76 25 H 81/56 L 98 12/03/21 04:45 75 24 97 12/03/21 04:42 36.8 C 71 76 20 83/54 L 85/57 L 95 12/03/21 04:38 74 19 79/33 L 100 12/03/21 04:30 9 L 12/03/21 04:15 66 21 86/69 L 97 12/03/21 04:05 67 23 92/63 L 96 12/03/21 04:00 68 21 83/64 L 97 12/03/21 03:56 68 21 106/63 97 12/03/21 03:51 68 22 88/62 L 97 12/03/21 03:45 68 22 81/67 L 100 12/03/21 03:40 69 27 H 106/63 98 12/03/21 03:35 68 22 92/58 L 97 12/03/21 03:32 69 23 90/57 L 97 12/03/21 03:21 68 21 86/57 L 95 12/03/21 03:16 70 23 98/53 L 96 12/03/21 03:10 68 23 94/57 L 98 12/03/21 03:06 71 23 82/56 L 96 12/03/21 02:45 74 23 65/50 L 97 12/03/21 02:40 75 22 62/44 L 97 12/03/21 02:35 74 23 64/48 L 97 12/03/21 02:30 77 24 67/53 L 95 12/03/21 02:25 77 22 63/48 L 97 12/03/21 02:20 77 22 61/48 L 98 12/03/21 02:18 75 18 66/49 L 99 12/03/21 02:14 77 20 121/92 100 12/03/21 02:10 76 21 100 12/03/21 02:08 74 21 100 12/03/21 02:06 78 23 69/47 L 100 12/03/21 02:04 77 22 90/46 L 99 12/03/21 02:00 73 24 62/50 L 70 L 12/03/21 01:58 72 19 67/50 L 67 L 12/03/21 01:57 73 22 68/49 L 81 L 12/03/21 01:50 63/51 L 68 L 12/03/21 01:46 137 H 24 55/36 L 97 12/03/21 01:43 141 H 23 67/53 L 100 12/03/21 01:41 144 H 24 69/55 L 100 12/03/21 01:40 145 H 23 66/49 L 96 12/03/21 01:35 141 H 22 74/59 L 88 L 12/03/21 01:30 145 H 23 87/53 L 98 12/03/21 01:25 144 H 22 78/56 L 98 12/03/21 01:20 144 H 23 80/65 L 96 12/03/21 01:15 144 H 21 76/61 L 100 12/03/21 01:10 144 H 21 96/59 L 92 12/03/21 01:05 143 H 23 81/69 L 74 L 12/03/21 01:00 141 H 21 82/64 L 95 12/03/21 00:55 141 H 20 86/69 L 89 L 12/03/21 00:52 140 H 21 80/56 L 92 12/03/21 00:50 140 H 20 84/62 L 78 L 12/03/21 00:44 137 H 20 87/60 L 12/03/21 00:42 138 H 23 89/54 L 12/03/21 00:40 140 H 20 12/03/21 00:38 141 H 20 75/58 L 12/03/21 00:34 140 H 24 95 12/03/21 00:30 142 H 25 H 12/03/21 00:29 141 H 21 91/60 L 97 12/03/21 00:28 141 H 18 72/53 L 95 12/03/21 00:27 143 H 21 97 12/02/21 23:55 140 H 20 90/50 L 95 12/02/21 23:47 36.6 C 119 H 16 114/79 100 Diagnostic Findings CXR: cardiomegaly Echocardiogram: pleural effusions without tamponade
[2021-12-03] MEDS ORDERED: MAGNESIUM SULFATE / D5W 1 GM/100 ML BAG IV ONE (10:00)
[2021-12-03] MEDS: FOLIC ACID 400 MCG TAB PO SCH (10:07)
[2021-12-03] MEDS: cefTRIAXone SODIUM 2,000 MG in DEXTROSE 5% 50 ML IV SCH (10:18)
--- NOTE | 2021-12-03 10:25 | Cardiology Consultation ---
Date of Consultation December 03, 2021 Assessment & Plan (1) Pericardial effusion: 2. Atrial flutter with RVR 3. Hypotension requiring pressors 4. Leukocytosis 5. Hyponatremia 6. Abnormal LFTs Reviewed bedside ultrasound images and formal echocardiogram. Patient has a moderate pericardial effusion without echocardiographic signs of tamponade. At this point do not feel pericardial effusion significantly contributing to hypotension. Fortunately pressures improving, on minimal residual norepinephrine. Differential for pericardial effusion broad. Suspect some viral etiology leading to overall presentation. Some question of bleeding/pericardial space hematoma. Pericardiocentesis potentially useful from a diagnostic standpoint. Remains in sinus rhythm following electrical cardioversion. Duration of atrial flutter unclear. Would recommend anticoagulation when question of pericardial bleeding resolved. Recommendations: Plan for pericardiocentesis and right heart cath later today. Likely will not leave drain in place unless gross blood. Please keep n.p.o. Will send fluid for cell counts, cultures, cytology Continue colchicine Further decision regarding anticoagulation for atrial flutter pending findings of pericardiocentesis History of Present Illness Attending Physician: Yury Garcia DO History of Present Illness Mr. Saba is a 71-year-old man seen in the ICU due to new atrial flutter with RVR and pericardial effusion. Prior history remarkable for hypertension, dyslipidemia, NERIS, cervical and lumbar spine disease post prior spine surgery. Admitted overnight in setting of presyncope, profound fatigue. Noted to be in atrial flutter with RVR with heart rates to 140s to 150s. Hemodynamically unstable, atrial flutter unresponsive to amiodarone bolus and electrically cardioverted. Has maintained sinus rhythm since but persistently hypotensive requiring pressors, now on norepinephrine. Chest imaging, bedside echo notable for pericardial effusion. Formal echo this morning showed moderate to large circumferential pericardial effusion without definitive signs of tamponade. LV function preserved, regional wall motion abnormalities. Prior to admission patient has been feeling well up until about 2 weeks ago when developed fever, fatigue, achiness soon after pneumonia vaccine. Covid/flu negative. Chest x-ray showing left greater than right pleural effusion. Treated with doxycycline for possible atypical pneumonia. Over the last week progressive fatigue/exhaustion. Presyncopal and heart racing with minimal exertion. No chest pain, orthopnea or lower extremity. Allergies Allergy/AdvReac Type Severity Reaction Status Date / Time Bactrim Allergy Unknown RASH Verified 06/23/17 10:52 bee venom protein (honey bee) Allergy Unknown SHORTNESS Verified 12/03/21 02:13 OF BREATH sulfamethoxazole Allergy Unknown RASH Verified 12/03/21 02:13 trimethoprim Allergy Unknown RASH Verified 12/03/21 02:13 morphine AdvReac rash Verified 12/03/21 02:13 Home Medications Medication Instructions Recorded Confirmed Type aspirin 81 mg tablet 81 mg PO DAILY tab 04/01/19 12/03/21 History calcium citrate 250 mg 2 tab PO DAILY tab 04/01/19 12/03/21 History calcium-vitamin D3 5 mcg (200 unit) tablet chromium picolinate 1,000 mcg 1,000 mcg PO DAILY tab 04/01/19 12/03/21 History tablet cinnamon bark 500 mg capsule 1,000 mg PO DAILY cap 04/01/19 12/03/21 History (Cinnamon) cyanocobalamin (vitamin B-12) 1,000 mcg PO DAILY tab 04/01/19 12/03/21 History 1,000 mcg tablet folic acid 800 mcg tablet 0.8 mg PO DAILY tab 04/01/19 12/03/21 History omega-3 acid ethyl esters 1 gram 2 cap PO DAILY cap 04/01/19 12/03/21 History capsule ascorbic acid (vitamin C) 500 mg 500 mg PO DAILY cap 07/31/19 12/03/21 History capsule multivitamin 1 tab PO DAILY 07/31/19 12/03/21 History psyllium husk-calcium 1 gram-60 mg 1 cap PO BID cap 07/31/19 12/03/21 History capsule (Metamucil Plus Calcium) lorazepam 0.5 mg tablet 0.5 mg PO DAILY PRN #30 tab 11/05/19 12/03/21 Rx pdfgbyam-tbx-DL 100 mcg-lut 1.66 1 tab PO DAILY tab 09/23/20 12/03/21 History mg-zeaxanth 0.83 mg tablet,delay rel. (Icaps MV) carboxymethylcellulose sodium 0.5 1 drp OPHTHALMIC (EYE) BID 11/06/20 12/03/21 History % eye drops (Refresh Tears) fluoride (sodium) 1.1 % dental 1 applic DENTAL DAILY 11/06/20 12/03/21 History cream (SF 5000 Plus) lisinopril 10 mg tablet 10 mg PO DAILY #90 tab 03/11/21 12/03/21 Rx epinephrine 0.3 mg/0.3 mL 0.3 mg IM Q15M PRN #2 ea 03/15/21 12/03/21 Rx injection, auto-injector clonazepam 0.5 mg tablet 0.5 mg PO DAILY #30 tab 10/06/21 12/03/21 Rx doxycycline hyclate 100 mg capsule 100 mg PO BID 7 Days #14 cap 11/23/21 12/03/21 Rx Patient History Medical History Anaphylaxis Anaphylaxis due to hymenoptera venom Anemia Benign colonic polyp Cervical stenosis of spinal canal (03/05/14) Degenerative disc disease, lumbar Generalized anxiety disorder Greater trochanteric pain syndrome of left lower extremity Hearing loss Hyperlipidemia Hypertension Impaired fasting glucose Leg length discrepancy Localized primary osteoarthritis of lower leg NERIS (obstructive sleep apnea) Periodic limb movement disorder Surgical History History of eye surgery History of foot surgery History of lumbar laminectomy History of retained foreign body fully removed History of tonsillectomy Family History Brother Anxiety Hypertension Intellectual disability Sister Breast cancer Mother Hypertension Father Lung cancer Other Asthma Cancer Hearing loss Social History Smoking Status: Former smoker packs per day: 1.5; Smoking End Date: 46 years ago; Number of Years Since Quit: 41; Second Hand Exposure: No; Do You Dip or Chew Tobacco: No; Tobacco Cessation Education Requested by Patient: No Hx Alcohol Use: No Hx Substance Use: No Preferred Language: Kyrgyz Communication Ability: Effective Visual Impairment: Limited Hearing Ability: Use of Hearing Aid Financial Investment Manager Required: No Beliefs That Will Affect Care: None marital status: Current Living Situation: Spouse current occupational status: retired current occupation: [employer] How many Children do You have: 0 Other Information That Helps Us Care for You: No Feels Safe at Home: Yes Safety Concerns: Feels Safe At This Time Childhood Exposure to Second-Hand Smoke: No caffeine: Yes Dental Care, Regularly: Yes Physical Activity Frequency: Daily Seatbelt Use: always Sunscreen Use: Yes Assistive Devices: Glasses and Hearing Aid - Bilateral Review of Systems Review of Systems: All systems reviewed & are unremarkable except as noted in HPI & below Physical Exam Physical Exam: General: Comfortable HEENT: Sclerae anicteric Lungs: Clear to auscultation bilaterally Cardiac: Regular rate and rhythm, no murmurs, no rubs Vascular: 2+ radial, DP pulses. Lower extremity digits cool/mildly cyanotic. Abdomen: Soft, nontender Extremities: Well perfused, no peripheral edema Neuro: Nonfocal Psych: Alert orient x3, normal affect and mood Results & Data ([facility]) Vital Signs (Past 12 Hours) Vital Signs Temp Pulse Pulse Resp BP BP Pulse Ox 12/03/21 08:37 97.9 F 12/03/21 07:46 66 22 113/78 97 12/03/21 07:45 66 23 96 12/03/21 07:30 66 23 108/73 97 12/03/21 07:16 69 21 98/76 L 98 12/03/21 07:15 70 21 94 12/03/21 07:06 68 23 100/72 97 12/03/21 07:01 68 20 69/53 L 96 12/03/21 07:00 70 22 80 L 12/03/21 05:31 73 20 73/55 L 98 12/03/21 05:30 72 20 98 12/03/21 05:25 70 19 86/68 L 98 12/03/21 05:21 68 19 89/66 L 98 12/03/21 05:15 70 23 97 12/03/21 05:11 71 24 85/64 L 97 12/03/21 05:05 71 20 83/66 L 98 12/03/21 05:00 97.9 F 72 70 23 85/57 L 85/57 L 97 12/03/21 04:56 73 19 81/59 L 97 12/03/21 04:50 74 26 H 83/54 L 95 12/03/21 04:46 76 25 H 81/56 L 98 12/03/21 04:45 75 24 97 12/03/21 04:42 98.2 F 71 76 20 83/54 L 85/57 L 95 12/03/21 04:38 74 19 79/33 L 100 12/03/21 04:30 9 L 12/03/21 04:15 66 21 86/69 L 97 12/03/21 04:05 67 23 92/63 L 96 12/03/21 04:00 68 21 83/64 L 97 12/03/21 03:56 68 21 106/63 97 12/03/21 03:51 68 22 88/62 L 97 12/03/21 03:45 68 22 81/67 L 100 12/03/21 03:40 69 27 H 106/63 98 12/03/21 03:35 68 22 92/58 L 97 12/03/21 03:32 69 23 90/57 L 97 12/03/21 03:21 68 21 86/57 L 95 12/03/21 03:16 70 23 98/53 L 96 12/03/21 03:10 68 23 94/57 L 98 12/03/21 03:06 71 23 82/56 L 96 12/03/21 02:45 74 23 65/50 L 97 12/03/21 02:40 75 22 62/44 L 97 12/03/21 02:35 74 23 64/48 L 97 12/03/21 02:30 77 24 67/53 L 95 12/03/21 02:25 77 22 63/48 L 97 12/03/21 02:20 77 22 61/48 L 98 12/03/21 02:18 75 18 66/49 L 99 12/03/21 02:14 77 20 121/92 100 12/03/21 02:10 76 21 100 12/03/21 02:08 74 21 100 12/03/21 02:06 78 23 69/47 L 100 12/03/21 02:04 77 22 90/46 L 99 12/03/21 02:00 73 24 62/50 L 70 L 12/03/21 01:58 72 19 67/50 L 67 L 12/03/21 01:57 73 22 68/49 L 81 L 12/03/21 01:50 63/51 L 68 L 12/03/21 01:46 137 H 24 55/36 L 97 12/03/21 01:43 141 H 23 67/53 L 100 12/03/21 01:41 144 H 24 69/55 L 100 12/03/21 01:40 145 H 23 66/49 L 96 12/03/21 01:35 141 H 22 74/59 L 88 L 12/03/21 01:30 145 H 23 87/53 L 98 12/03/21 01:25 144 H 22 78/56 L 98 12/03/21 01:20 144 H 23 80/65 L 96 12/03/21 01:15 144 H 21 76/61 L 100 12/03/21 01:10 144 H 21 96/59 L 92 12/03/21 01:05 143 H 23 81/69 L 74 L 12/03/21 01:00 141 H 21 82/64 L 95 12/03/21 00:55 141 H 20 86/69 L 89 L 12/03/21 00:52 140 H 21 80/56 L 92 12/03/21 00:50 140 H 20 84/62 L 78 L 12/03/21 00:44 137 H 20 87/60 L 12/03/21 00:42 138 H 23 89/54 L 12/03/21 00:40 140 H 20 12/03/21 00:38 141 H 20 75/58 L 12/03/21 00:34 140 H 24 95 12/03/21 00:30 142 H 25 H 12/03/21 00:29 141 H 21 91/60 L 97 12/03/21 00:28 141 H 18 72/53 L 95 12/03/21 00:27 143 H 21 97 12/02/21 23:55 140 H 20 90/50 L 95 12/02/21 23:47 97.9 F 119 H 16 114/79 100 PG Care Time/CCT Total # of Minutes Spent Total Time Spent with Patient: Total time spent is greater than 50% in coordination of care (as documented) at patient's floor/unit and/or counseling patient: Coding Level of Care Code 15787 Initial Inpt Care Lvl 3 Diagnoses Pericardial effusion I31.3
[2021-12-03 10:59] LABS: BUN Creatinine Ratio 11.6 (10-20); Calcium 8.2 mg/dl (8.5-10.1); Creatinine Clr Calc Pharmacy 48.6 ml/min; Est GFR (African American) 40.8 ml/min; Est GFR (Non-African American) 35.2 ml/min; Phosphorus 5.4 mg/dl (2.5-4.9); Potassium 5.1 mmol/L (3.5-5.1)
[2021-12-03] MEDS: FAMOTIDINE 20 MG in SYRINGE 3 ML IV SCH (11:12)
[2021-12-03] MEDS ORDERED: AZITHROMYCIN 500 MG in DEXTROSE 5% 250 ML IV SCH (12:00)
--- NOTE | 2021-12-03 12:28 | Pre Anesthesia Assessment ---
Date of Service December 03, 2021 Pre Sedation Assessment Vital Signs Temp Pulse Pulse Resp BP BP Pulse Ox 12/03/21 08:37 97.9 F 12/03/21 07:46 66 22 113/78 97 12/03/21 07:45 66 23 96 12/03/21 07:30 66 23 108/73 97 12/03/21 07:16 69 21 98/76 L 98 12/03/21 07:15 70 21 94 12/03/21 07:06 68 23 100/72 97 12/03/21 07:01 68 20 69/53 L 96 12/03/21 07:00 70 22 80 L 12/03/21 05:31 73 20 73/55 L 98 12/03/21 05:30 72 20 98 12/03/21 05:25 70 19 86/68 L 98 12/03/21 05:21 68 19 89/66 L 98 12/03/21 05:15 70 23 97 12/03/21 05:11 71 24 85/64 L 97 12/03/21 05:05 71 20 83/66 L 98 12/03/21 05:00 97.9 F 72 70 23 85/57 L 85/57 L 97 12/03/21 04:56 73 19 81/59 L 97 12/03/21 04:50 74 26 H 83/54 L 95 12/03/21 04:46 76 25 H 81/56 L 98 12/03/21 04:45 75 24 97 12/03/21 04:42 98.2 F 71 76 20 83/54 L 85/57 L 95 12/03/21 04:38 74 19 79/33 L 100 12/03/21 04:30 9 L 12/03/21 04:15 66 21 86/69 L 97 12/03/21 04:05 67 23 92/63 L 96 12/03/21 04:00 68 21 83/64 L 97 12/03/21 03:56 68 21 106/63 97 12/03/21 03:51 68 22 88/62 L 97 12/03/21 03:45 68 22 81/67 L 100 12/03/21 03:40 69 27 H 106/63 98 12/03/21 03:35 68 22 92/58 L 97 12/03/21 03:32 69 23 90/57 L 97 12/03/21 03:21 68 21 86/57 L 95 12/03/21 03:16 70 23 98/53 L 96 12/03/21 03:10 68 23 94/57 L 98 12/03/21 03:06 71 23 82/56 L 96 12/03/21 02:45 74 23 65/50 L 97 12/03/21 02:40 75 22 62/44 L 97 12/03/21 02:35 74 23 64/48 L 97 12/03/21 02:30 77 24 67/53 L 95 12/03/21 02:25 77 22 63/48 L 97 12/03/21 02:20 77 22 61/48 L 98 12/03/21 02:18 75 18 66/49 L 99 12/03/21 02:14 77 20 121/92 100 12/03/21 02:10 76 21 100 12/03/21 02:08 74 21 100 12/03/21 02:06 78 23 69/47 L 100 12/03/21 02:04 77 22 90/46 L 99 12/03/21 02:00 73 24 62/50 L 70 L 12/03/21 01:58 72 19 67/50 L 67 L 12/03/21 01:57 73 22 68/49 L 81 L 12/03/21 01:50 63/51 L 68 L 12/03/21 01:46 137 H 24 55/36 L 97 12/03/21 01:43 141 H 23 67/53 L 100 12/03/21 01:41 144 H 24 69/55 L 100 12/03/21 01:40 145 H 23 66/49 L 96 12/03/21 01:35 141 H 22 74/59 L 88 L 12/03/21 01:30 145 H 23 87/53 L 98 12/03/21 01:25 144 H 22 78/56 L 98 12/03/21 01:20 144 H 23 80/65 L 96 12/03/21 01:15 144 H 21 76/61 L 100 12/03/21 01:10 144 H 21 96/59 L 92 12/03/21 01:05 143 H 23 81/69 L 74 L 12/03/21 01:00 141 H 21 82/64 L 95 12/03/21 00:55 141 H 20 86/69 L 89 L 12/03/21 00:52 140 H 21 80/56 L 92 12/03/21 00:50 140 H 20 84/62 L 78 L 12/03/21 00:44 137 H 20 87/60 L 12/03/21 00:42 138 H 23 89/54 L 12/03/21 00:40 140 H 20 12/03/21 00:38 141 H 20 75/58 L 12/03/21 00:34 140 H 24 95 12/03/21 00:30 142 H 25 H 12/03/21 00:29 141 H 21 91/60 L 97 12/03/21 00:28 141 H 18 72/53 L 95 12/03/21 00:27 143 H 21 97 12/02/21 23:55 140 H 20 90/50 L 95 12/02/21 23:47 97.9 F 119 H 16 114/79 100 Cardiovascular RRR, no murmur, no edema Respiratory normal respiratory effort, lungs clear to auscultation Pre-Sedation Airway Assessment Smoking Status: Former smoker Hx Sleep Apnea: No Hx Difficult Intubation: No Short, Thick Neck: No Thyromental Distance: > or= 3.5 Finger Breadths Oral Cavity: + WNL ASA: ASA3 Procedure Planning Contraindications for Sedation: none Current Medications Reviewed: Yes Notes The planned sedation has been discussed with the patient. Informed Consent was obtained. I have identified the patient, determined the appropriateness of sedation and have assessed the patient immediately prior to the procedure. All medicine(s) and interventions are by my order.
[2021-12-03] MEDS ORDERED: LIDOCAINE 1% LOCAL 20 ML VIAL ONE (12:38)
[2021-12-03] MEDS ORDERED: fentaNYL citrate 100 MCG/2 ML VIAL ONE (13:12)
[2021-12-03] MEDS ORDERED: MIDAZOLAM HCL 1 MG/ML 2ML VIAL ONE (13:12)
--- NOTE | 2021-12-03 14:19 | Post Anesthesia Assessment ---
Date of Service December 03, 2021 Post Sedation Assessment Vital Signs Temp Pulse Pulse Resp BP BP Pulse Ox 12/03/21 12:50 74 12/03/21 08:37 97.9 F 12/03/21 07:46 66 22 113/78 97 12/03/21 07:45 66 23 96 12/03/21 07:30 66 23 108/73 97 12/03/21 07:16 69 21 98/76 L 98 12/03/21 07:15 70 21 94 12/03/21 07:06 68 23 100/72 97 12/03/21 07:01 68 20 69/53 L 96 12/03/21 07:00 70 22 80 L 12/03/21 05:31 73 20 73/55 L 98 12/03/21 05:30 72 20 98 12/03/21 05:25 70 19 86/68 L 98 12/03/21 05:21 68 19 89/66 L 98 12/03/21 05:15 70 23 97 12/03/21 05:11 71 24 85/64 L 97 12/03/21 05:05 71 20 83/66 L 98 12/03/21 05:00 97.9 F 72 70 23 85/57 L 85/57 L 97 12/03/21 04:56 73 19 81/59 L 97 12/03/21 04:50 74 26 H 83/54 L 95 12/03/21 04:46 76 25 H 81/56 L 98 12/03/21 04:45 75 24 97 12/03/21 04:42 98.2 F 71 76 20 83/54 L 85/57 L 95 12/03/21 04:38 74 19 79/33 L 100 12/03/21 04:30 9 L 12/03/21 04:15 66 21 86/69 L 97 12/03/21 04:05 67 23 92/63 L 96 12/03/21 04:00 68 21 83/64 L 97 12/03/21 03:56 68 21 106/63 97 12/03/21 03:51 68 22 88/62 L 97 12/03/21 03:45 68 22 81/67 L 100 12/03/21 03:40 69 27 H 106/63 98 12/03/21 03:35 68 22 92/58 L 97 04/15/22 03:32 69 23 90/57 L 97 12/03/21 03:21 68 21 86/57 L 95 12/03/21 03:16 70 23 98/53 L 96 12/03/21 03:10 68 23 94/57 L 98 12/03/21 03:06 71 23 82/56 L 96 12/03/21 02:45 74 23 65/50 L 97 12/03/21 02:40 75 22 62/44 L 97 12/03/21 02:35 74 23 64/48 L 97 12/03/21 02:30 77 24 67/53 L 95 12/03/21 02:25 77 22 63/48 L 97 12/03/21 02:20 77 22 61/48 L 98 12/03/21 02:18 75 18 66/49 L 99 12/03/21 02:14 77 20 121/92 100 12/03/21 02:10 76 21 100 12/03/21 02:08 74 21 100 12/03/21 02:06 78 23 69/47 L 100 12/03/21 02:04 77 22 90/46 L 99 12/03/21 02:00 73 24 62/50 L 70 L 12/03/21 01:58 72 19 67/50 L 67 L 12/03/21 01:57 73 22 68/49 L 81 L 12/03/21 01:50 63/51 L 68 L 12/03/21 01:46 137 H 24 55/36 L 97 12/03/21 01:43 141 H 23 67/53 L 100 12/03/21 01:41 144 H 24 69/55 L 100 12/03/21 01:40 145 H 23 66/49 L 96 12/03/21 01:35 141 H 22 74/59 L 88 L 12/03/21 01:30 145 H 23 87/53 L 98 12/03/21 01:25 144 H 22 78/56 L 98 12/03/21 01:20 144 H 23 80/65 L 96 12/03/21 01:15 144 H 21 76/61 L 100 12/03/21 01:10 144 H 21 96/59 L 92 12/03/21 01:05 143 H 23 81/69 L 74 L 12/03/21 01:00 141 H 21 82/64 L 95 12/03/21 00:55 141 H 20 86/69 L 89 L 12/03/21 00:52 140 H 21 80/56 L 92 12/03/21 00:50 140 H 20 84/62 L 78 L 12/03/21 00:44 137 H 20 87/60 L 12/03/21 00:42 138 H 23 89/54 L 12/03/21 00:40 140 H 20 12/03/21 00:38 141 H 20 75/58 L 12/03/21 00:34 140 H 24 95 12/03/21 00:30 142 H 25 H 12/03/21 00:29 141 H 21 91/60 L 97 12/03/21 00:28 141 H 18 72/53 L 95 12/03/21 00:27 143 H 21 97 12/02/21 23:55 140 H 20 90/50 L 95 12/02/21 23:47 97.9 F 119 H 16 114/79 100 Recovery Score Activity: Moves 4 extremities Respiration: Deep Breath/Cough Circulation: +/-20% PreAnes Value Consciousness: Fully Awake Oxygen Saturation: O2 needed for >90% Discharge Sedation Level of Care: Fast Track Phase II Post Sedation Plan On clinical assessment, the patient appears to have tolerated the sedation without complications. Patient is recovering as anticipated. Patient will continue to be monitored by nursing and may be discharged when sedation discharge criteria are met per below protocol. Upon Completions of procedure up to 15 minutes continue every 5 minute vital signs and the P.A.R. score; then discharge to a Phase I or Fast Track to Phase II per the following guidelines: * Discharge Patient to appropriate Phase II area if PAR is 8 or greater or return to pre- procedure baseline. The post - procedure orders will be as directed. * If PAR score is less than 8 or not return to pre-procedure baseline then patient will follow Phase I monitoring till PAR is reached for Phase II. The Phase I may be done in procedure room or may call to secure a Phase I area. * If naloxone or flumazenil are used for reversal, hold in Phase I for continued monitoring from when last reversal dose was given for a minimum of 60 minutes or longer pending the nurse and/or physician discretion of patient condition before discharge to Phase II. Please call the Sedation Physician to re-evaluate and complete post-note for discharge to Phase II area. Do NOT discharge from procedure sedation or Phase 1 until post- sedation evaluation note is complete by procedure /sedation MD Sedation Discharge Instructions to be given to the patient at discharge to home.
--- NOTE | 2021-12-03 14:31 | Cardiac Catheterization ---
[facility] Data: Parts Chaser Cardiac Status Clinical evaluation leading to the procedure CAD Presenation: Sx unlikely to be ischemic Diagnostic Physicians Name: Zenon Thrasher MD Closure Device Recommendations: Medical Therapy and/or Counseling Cardiac Cath Procedure Full Procedure Date December 03, 2021 Pre-Procedure Diagnosis Pre-Procedure Diagnosis: Pericardial Disease and Cardiothoracic Symptom AUC Score AUC Score: 7 Post-Procedure Diagnosis Post-Procedure Diagnosis: Elevated Intracardiac Pressures Procedure(s) Performed Procedure(s) Performed: Right Heart Cath and Pericardiocentesis Linen Aide Zenon Thrasher MD Manager Maritime(s) Agriculture Department Chair Estimated Blood Loss Estimated Blood Loss: 15 Medication(s) Medication(s): Fentanyl, Lidocaine 1% and Versed Summary of Findings PERICARDIOCENTESIS Indication: Moderate to large pericardial effusion, unexplained hypotension Procedure: 6 Fr sheath placed to right antecubital vein 6 Fr [place] navigated to PA under fluoroscopic guidance Local anesthesia with lidocaine From subxiphoid approach pericardial space accessed under ultrasound/fluoroscopic guidance with micropuncture needle Wire exchanged for 6 Fr Glidesheath and 6 Fr pigtail pericardial catheter Post drainage pericardial drain removed Sheath removed, manual hemostasis Findings: Prepericardiocentesis RA 13 RV 28/16 PA 30/20 (23) PAWP 19 PaSat 58% AoSat 93% Marilyn CO/CI 4.95/2.0 Post pericardiocentesis RA 12 RV 29/14 PA 31/17 (24) PA sat 73% Marilyn CO/CI 9.0/3.7 Removed 260 mL of serosanguineous fluid. Opening pericardial pressure 15 Post pericardiocentesis pericardial space pressure 6 Procedure echo images showed only trivial residual fluid Summary: 1. Successful pericardiocentesis with removal of 260 mL of serosanguineous fluid 2. Borderline elevated left sided filling pressures. 3. Elevated right-sided pressures. 4. Normal pulmonary artery pressures 5. Normal cardiac output (improved post pericardiocentesiscardiac index Pre - 2.0, Post - 3.7) Recommendations: Repeat limited echocardiogram in the morning Continue colchicine Follow-up cell counts, cultures, cytology Hemodynamics Rest Ao:: -- Final Ao: -- LV: -- Recommendations Recommendations: Medical Therapy and/or Counseling Specimens Specimens: None Radiation Exposure (mGy) 1308 Contrast (mls) -- Anesthesia moderate [id number] Procedural Complication(s) None Disposition ICU I attest to the content of the Intraoperative Record and any orders documented therein. Any exceptions are noted below. [facility] Card Cath Procedure Codes Cardiac Catheterization Procedure 1: Cardiovascular Cath Procedures: 49313 Right Heart Cath Therapeutic Services & Ancillary Proc Procedure 1: Cardiovascular Tx and Anc Procedures: 37952 Pericardiocentesis; initial Procedure 2: Cardiovascular Tx and Anc Procedures: 28444 Ultrasonic Guidance Pericardiocentesis Moderate Sedation Procedure 1: Sedation/Anesthesia: 68140 Mod Sedation by the same physician;Init15 Min Child Age 5 & Up Procedure 2: Sedation/Anesthesia: 79422 Mod Sedation by the same physician; Ea [id number] Minutes PG Care Time/CCT Total # of Minutes Spent Total Time Spent with Patient: Total time spent is greater than 50% in coordination of care (as documented) at patient's floor/unit and/or counseling patient:
[2021-12-03 14:36] LABS: iSTAT Arterial Blood Gas HCO3 21 meg/L (19-24); iSTAT Arterial Blood Gas pCO2 40 mmHg (35-46); iSTAT Arterial Blood Gas pH 7.32 (7.35-7.45); iSTAT Arterial Blood Gas pO2 33 mmHg (80-95); iSTAT Carbon Dioxide 22 mmol/L (24-31)
[2021-12-03 14:36] LABS: iSTAT Arterial Blood Gas HCO3 21 meg/L (19-24); iSTAT Arterial Blood Gas pCO2 41 mmHg (35-46); iSTAT Arterial Blood Gas pH 7.31 (7.35-7.45); iSTAT Arterial Blood Gas pO2 42 mmHg (80-95); iSTAT Carbon Dioxide 22 mmol/L (24-31)
[2021-12-03 16:42] LABS: Basophils, Fluid 0 %; Eosinophils, Fluid 0 %; Lymphocytes, Fluid 2 %; Mono,Macrophage,Mesothelial 2 %; Neutrophils, Fluid 96 %; Pericardial Fluid Appearance CLOUDY; Pericardial Fluid Color RED; RBC Pericardial Fluid (A) 139000 /uL; WBC Pericardial Fluid (A) 28220 /ul
[2021-12-03] MEDS: COLCHICINE 0.6 MG TAB PO SCH (17:55)
[2021-12-03] MEDS ORDERED: FAMOTIDINE 20 MG in SYRINGE 3 ML IV SCH (18:00)
--- NOTE | 2021-12-03 18:28 | XCELERA ---
[id number]
--- NOTE | 2021-12-03 20:22 | Billing Data ---
Date of Service December 03, 2021 Coding Level of Care Code Critical Care 1st -74 mins
--- NOTE | 2021-12-03 22:17 | Electrocardiogram Report ---
Test Reason : Blood Pressure : / mmHG Vent. Rate : 142 BPM Atrial Rate : 284 BPM P-R Int : 000 ms QRS Dur : 114 ms QT Int : 332 ms P-R-T Axes : 000 246 026 degrees QTc Int : 510 ms Atrial flutter with 2:1 A-V conduction Right bundle branch block Inferior infarct , age undetermined Poor R wave progression, consider anterior VT vs. lead placement vs. LVH Abnormal ECG When compared with ECG of 16-MAY-2017 09:12, Atrial flutter has replaced Sinus rhythm HR has increased by 73 bpm Confirmed by Nilson Gonsalez ([id number]) on 12/03/2021 10:17:03 PM Referred By: REFERRED SELF Confirmed By:Nilson Gonsalez
--- NOTE | 2021-12-03 22:22 | Electrocardiogram Report ---
Test Reason : Blood Pressure : / mmHG Vent. Rate : 073 BPM Atrial Rate : 073 BPM P-R Int : 190 ms QRS Dur : 102 ms QT Int : 398 ms P-R-T Axes : 056 -86 062 degrees QTc Int : 438 ms Normal sinus rhythm Possible Left atrial enlargement Left axis deviation Low voltage QRS Incomplete right bundle branch block Inferior infarct (cited on or before 03-DEC-2021) Cannot rule out Anterior infarct (cited on or before 03-DEC-2021) Abnormal ECG When compared with ECG of 03-DEC-2021 00:24, Sinus rhythm has replaced Atrial flutter Vent. rate has decreased BY 69 BPM T wave inversion now evident in Anterolateral leads Confirmed by Nilson Gonsalez ([id number] on 12/03/2021 10:22:08 PM Referred By: REFERRED SELF Confirmed By:Nilson Gonsalez
[2021-12-04] MEDS: SODIUM CHLORIDE 0.9% 1000ML 1,000 ML IV SCH (03:07)
[2021-12-04 05:59] LABS: BUN Creatinine Ratio 20.8 (10-20); Calcium 8.4 mg/dl (8.5-10.1); Creatinine Clr Calc Pharmacy 76.9 ml/min; Est GFR (African American) 71.1 ml/min; Est GFR (Non-African American) 61.3 ml/min; Magnesium 2.3 mg/dl (1.7-2.4); Phosphorus 3.8 mg/dl (2.5-4.9); Potassium 4.5 mmol/L (3.5-5.1)
[2021-12-04 06:00] LABS: Hematocrit (blood only) 36.7 % (42-52); Hemoglobin 12.1 g/dL (14.0-18.0); Immature Granulocytes # (auto) 0.08 K/uL (0.00-0.02); Immature Granulocytes % (auto) 0.4 %; Lymphocytes # (auto) 1.04 K/uL (1.2-3.4); Lymphocytes % (auto) 5.5 %; Mean Corpuscular Hemoglobin 30.2 pg (25-34); Mean Corpuscular Volume 91.5 fL (80-100); Mean Platelet Volume 10.2 fL (7.4-10.4); Monocytes # (auto) 1.24 K/uL (0.11-0.59); Monocytes % (auto) 6.5 %; Neutrophils # (auto) 16.62 K/uL (1.4-6.5); Neutrophils % (auto) 87.6 %; Platelet Count 281 K/uL (130-400); RDW Coefficient of Variation 13.6 % (11.5-14.5); RDW Standard Deviation 45.3 fL (36.4-46.3); Red Blood Count 4.01 M/uL (4.7-6.1); White Blood Count 18.98 K/uL (4.8-10.8)
[2021-12-04 06:19] LABS: Troponin I High Sensitivity 935.7 pg/ml (0-20)
[2021-12-04] MEDS: NOREPINEPHRINE/D5W 8 MG/508 ML BAG IV SCH (06:21)
--- NOTE | 2021-12-04 07:15 | Hospitalist Progress Note ---
Date of Service December 04, 2021 Assessment & Plan (1) Pericardial effusion: Plan: 71 yo M with PMH NERIS, cervical stenosis, HTN, HLD, Anxiety, DDD brought to the ER for weakness and fatigue found to be acutely hypotensive in Afib RVR and admitted to the ICU for continuing support. Hypovolemic and Cardiogenic shock 2/2 pericardial effusion and pericarditis s/p pericardiocentesis - initially requiring pressor support in ICU, now hemodynamically stable - pericardiocentesis on 12/03 drained 260 ml of serosanguinous fluid - follow up TTE showing improved ventricular function and decreased effusion size - cultures of pericardial fluid showing WBC predominance without organisms, likely viral rather than rheumatologic - pathology and Acid fast smear still pending. - colchicine and ibuprofen for pericarditis treatment - HS troponin downtrending from peak of 1033 - respiratory viral panel negative - coxsackie subtypes pending New Afib/Aflutter - s/p electrical conversion with clearance of Afib - Aflutter duration unknown, will start on Eliquis for anticoagulation at discharge. Holding at this time given recent pericardiocentesis Vtach - run of sustained Vtach while in ICU this afternoon, successfully converted with shock of 200J x1 - started on amiodarone drip LLL Pneumonia - Communia acquired, completed course of doxycycline prior to hospital admission - azithromycin initiated but discontinued at this time due to QTc lengthening. continue ceftriaxone - WBC increased to 18 from 11, procal up to 1.52 from 1.13 - no risk factors for Staph or Pseudomonas - MRSA nares negative Acute hypoxic respiratory failure, improving - secondary to PNA and cardiac dysfunction as above - goal O2 >90%, currently on 1L nC - pulmonary toilet, no home O2 requirement Transaminitis - Alk Phos 156, ALT 53 - normal AST - likely due to shock, will repeat and monitor for improvement TONY - due to shock, resolved with fluid resuscitation DVT ppx: SCDs FEN/GI: regular heart healthy Bowel regimen: NA Code Status: full code Dispo: ICU (2) Acute hypotension: (3) Atrial flutter with rapid ventricular response: (4) Hyperlipidemia: (5) Hypertension: (6) NERIS (obstructive sleep apnea): (7) CAP (community acquired pneumonia): (8) Atrial flutter: (9) Transaminitis: Admission and Anticipated Discharge Date Admission Date: December 03, 2021 Supervising Physician Co-Signing Physician Notes I personally examined the patient and verified all smith points of history and exam, discussed case, and agree with decision making with Dr Rojas Feeling better now. Was feeling dizzy earlierfound to be in monomorphic V. tach. Shocked to regular rhythm againhe was grateful for being able to be sedated this time, recalling that he had similar experience in the ER, but his blood pressures were too low for sedation. Otherwise no complaints Vitals noted, in general he is awake and alert pleasant no distress. HEENT normocephalic atraumatic mucous membranes moist. Breathing unlabored no accessory muscle use good effort. Skin shows no rashes no pallor or icterus. Neuro without focal deficits. Pericardial effusion with tamponade causing shocknow improved status post pericardiocentesis. Probably all a viral cody-/myocarditis picture. V. tach not surprising given the contextshocked to stability. Continue supportive care. Otherwise as above Subjective no acute events overnight. Feeling well this AM after pericardiocentesis yesterday. Denies any chest pain, chest pressure, SOB, Dyspnea, pain with deep inspiration. anxious to have out so that he can get up and move about the room and use the toilet on his own. Review of Systems Review of Systems: All systems reviewed & are unremarkable except as noted in Subjective Physical Exam Physical Exam: Constitutional: obese, in no apparent distress, sitting comfortably in bed. Eyes: EOMI, pupils equal and reactive bilaterally, no scleral icterus Cardiac: RRR, no murmurs, gallops or rubs. Normal S1, S2 Pulm: CTA BL, no wheezes, rhonchi, crackles or rubs, moving air well throughout both lungs Abd: soft, nontender, nondistended, normal bowel sounds, no rebound or guarding Extremities: 2+ peripheral pulses, no edema Neuro: no focal deficits, moving all 4 limbs, A&Ox3 Results & Data Results & Data ([facility]) Vital Signs (Past 12 Hours) Vital Signs Pulse Resp BP Pulse Ox 12/04/21 04:00 70 15 118/76 95 12/04/21 03:55 72 20 94 12/04/21 03:00 70 16 117/72 94 12/04/21 02:00 73 14 116/73 95 12/04/21 01:00 67 8 L 108/70 95 12/04/21 00:00 74 14 110/77 92 12/03/21 23:30 77 18 94 12/03/21 23:01 82 22 111/77 92 12/03/21 23:00 74 17 91 12/03/21 22:30 79 21 90 12/03/21 22:00 81 16 107/73 90 12/03/21 21:30 80 20 91 12/03/21 21:00 92 H 18 109/72 92 12/03/21 20:30 93 H 16 93 12/03/21 20:00 94 H 25 H 112/75 95 12/03/21 19:30 92 H 15 100 Laboratory Results Laboratory Results WBC 18.98 K/uL (4.8-10.8) H 12/04/21 04:42 RBC 4.01 M/uL (4.7-6.1) L 12/04/21 04:42 Hgb 12.1 g/dL (14.0-18.0) L 12/04/21 04:42 Hct 36.7 % (42-52) L 12/04/21 04:42 MCV 91.5 fL (80-100) 12/04/21 04:42 MCH 30.2 pg (25-34) 12/04/21 04:42 MCHC 33.0 g/dL (32-36) 12/04/21 04:42 RDW Std Deviation 45.3 fL (36.4-46.3) 12/04/21 04:42 RDW Coeff of Bryce 13.6 % (11.5-14.5) 12/04/21 04:42 Plt Count 281 K/uL (130-400) 12/04/21 04:42 MPV 10.2 fL (7.4-10.4) 12/04/21 04:42 Immature Gran % (Auto) 0.4 % 12/04/21 04:42 Neut % (Auto) 87.6 % 12/04/21 04:42 Lymph % (Auto) 5.5 % 12/04/21 04:42 [place] % (Auto) 6.5 % 12/04/21 04:42 Eos % (Auto) 0.0 % 12/04/21 04:42 Baso % (Auto) 0.0 % 12/04/21 04:42 Neut # (Auto) 16.62 K/uL (1.4-6.5) H 12/04/21 04:42 Lymph # (Auto) 1.04 K/uL (1.2-3.4) L 12/04/21 04:42 [place] # (Auto) 1.24 K/uL (0.11-0.59) H 12/04/21 04:42 Eos # (Auto) 0.00 K/uL (0-0.5) 12/04/21 04:42 Baso # (Auto) 0.00 K/uL (0-0.2) 12/04/21 04:42 Immature Gran # (Auto) 0.08 K/uL (0.00-0.02) H 12/04/21 04:42 ESR 28 mm/hr (0-20) H 12/03/21 05:31 PT 14.1 Seconds (9.0-12.0) H 12/03/21 05:31 INR 1.3 (0.9-1.1) H 12/03/21 05:31 POC pH 7.31 (7.35-7.45) L 12/03/21 14:10 POC pCO2 41 mmHg (35-46) 12/03/21 14:10 POC pO2 42 mmHg (80-95) L 12/03/21 14:10 POC HCO3 21 jeff/L (19-24) 12/03/21 14:10 POC Total CO2 22 mmol/L (24-31) L 12/03/21 14:10 POC Base Excess -5.0 jeff/L (-9-1.8) 12/03/21 14:10 POC ABG O2 Sat 73.0 % (90-95) L 12/03/21 14:10 Sodium 134 mmol/L (136-145) L 12/04/21 04:42 Potassium 4.5 mmol/L (3.5-5.1) 12/04/21 04:42 Chloride 104 mmol/L (98-107) 12/04/21 04:42 Carbon Dioxide 23 mmol/L (21-32) 12/04/21 04:42 Anion Gap 7 (3-11) 12/04/21 04:42 BUN 25 mg/dl (6-23) H 12/04/21 04:42 Creatinine 1.20 mg/dl (0.6-1.4) D 12/04/21 04:42 Est Cr Clr Drug Dosing 76.9 ml/min 12/04/21 04:42 Est GFR ( Amer) 71.1 ml/min 12/04/21 04:42 Est GFR (Non-Af Amer) 61.3 ml/min 12/04/21 04:42 BUN/Creatinine Ratio 20.8 (10-20) H 12/04/21 04:42 Glucose 120 mg/dl (70-99(Fasting)) H 12/04/21 04:42 Uric Acid 4.4 mg/dl (2.6-7.2) 12/03/21 05:31 Calcium 8.4 mg/dl (8.5-10.1) L 12/04/21 04:42 Phosphorus 3.8 mg/dl (2.5-4.9) D 12/04/21 04:42 Magnesium 2.3 mg/dl (1.7-2.4) 12/04/21 04:42 Total Bilirubin 1.2 mg/dl (0.2-1.0) H 12/03/21 00:37 AST 33 U/L (13-39) 12/03/21 00:37 ALT 53 U/L (7-52) H 12/03/21 00:37 Alkaline Phosphatase 156 U/L (34-104) H 12/03/21 00:37 Troponin I High Sens 935.7 pg/ml (0-20) H* 12/04/21 04:42 C-Reactive Protein 10.31 mg/dl (0-0.5) H 12/03/21 05:31 B-Natriuretic Peptide 197 pg/ml (0-100) H 12/03/21 10:09 Total Protein 6.7 gm/dl (6.0-8.3) 12/03/21 00:37 Albumin 3.4 gm/dl (3.4-5.0) 12/03/21 00:37 Globulin 3.3 gm/dl (2.5-4.0) 12/03/21 00:37 Albumin/Globulin Ratio 1.0 (0.9-2) 12/03/21 00:37 Procalcitonin 1.53 ng/ml (0-0.5) H 12/04/21 04:42 TSH 1.322 uIu/ml (0.300-4.500) 12/03/21 00:37 Urine Color Dark Yellow 12/03/21 05:10 Urine Appearance Clear (Clear) 12/03/21 05:10 Urine pH 5.0 (4.5-7.5) 12/03/21 05:10 Ur Specific [place] 1.024 (1.000-1.030) 12/03/21 05:10 Urine Protein Trace (Negative) H 12/03/21 05:10 Urine Glucose (UA) Negative (Negative) 12/03/21 05:10 Urine Ketones Trace (Negative) H 12/03/21 05:10 Urine Blood Negative (Negative) 12/03/21 05:10 Urine Nitrite Negative (Negative) 12/03/21 05:10 Urine Bilirubin Negative (Negative) 12/03/21 05:10 Urine Urobilinogen Negative (Negative) 12/03/21 05:10 Ur Leukocyte Esterase Negative (Negative) 12/03/21 05:10 Urine WBC (Auto) 1-5 /hpf (0-5) 12/03/21 05:10 Urine RBC (Auto) 0-4 /hpf (0-4) 12/03/21 05:10 U Hyaline Cast (Auto) 1-5 /lpf (0-5) 12/03/21 05:10 U Epithel Cells (Auto) 10-20 /lpf (0-5) H 12/03/21 05:10 Urine Bacteria (Auto) Negative (Negative) 12/03/21 05:10 Fluid Neutrophils % 96 % 12/03/21 14:00 Fluid Lymphocytes % 2 % 12/03/21 14:00 Fluid Eosinophils % 0 % 12/03/21 14:00 Fluid Basophils % 0 % 12/03/21 14:00 Fluid [place] % 2 % 12/03/21 14:00 Fluid Comment 12/03/21 14:00 Pericard Color RED 12/03/21 14:00 Pericard Appearance CLOUDY 12/03/21 14:00 Pericard WBC 90580 /ul 12/03/21 14:00 Pericard RBC 023116 /uL 12/03/21 14:00 Nasal Screen MRSA (PCR) Negative (Negative) 12/03/21 04:37 Adenovirus (PCR) Not Detected (NotDetected) 12/03/21 Unknown B. pertussis DNA (PCR) Not Detected (NotDetected) 12/03/21 Unknown B.parapertussis DNA PCR Not Detected (NotDetected) 12/03/21 Unknown Lyme Disease IgG Ab Negative (Negative) 12/03/21 03:31 Lyme Disease IgM Ab Negative (Negative) 12/03/21 03:31 C. pneumoniae DNA (PCR) Not Detected (NotDetected) 12/03/21 Unknown Coronavirus OC43 (PCR) Not Detected (NotDetected) 12/03/21 Unknown Coronavirus HKU1 (PCR) Not Detected (NotDetected) 12/03/21 Unknown Coronavirus 229E (PCR) Not Detected (NotDetected) 12/03/21 Unknown SARS-CoV-2 (PCR) Not Detected (NotDetected) 12/03/21 Unknown Coronavirus NL63 (PCR) Not Detected (NotDetected) 12/03/21 Unknown Human Metapneumovir PCR Not Detected (NotDetected) 12/03/21 Unknown Influenza Type A (PCR) Not Detected (NotDetected) 12/03/21 Unknown Influenza Type B (PCR) Not Detected (NotDetected) 12/03/21 Unknown M. pneumoniae (PCR) Not Detected (NotDetected) 12/03/21 Unknown Parainfluenza 1 (PCR) Not Detected (NotDetected) 12/03/21 Unknown Parainfluenza 2 (PCR) Not Detected (NotDetected) 12/03/21 Unknown Parainfluenza 3 (PCR) Not Detected (NotDetected) 12/03/21 Unknown Parainfluenza 4 (PCR) Not Detected (NotDetected) 12/03/21 Unknown RSV (PCR) Not Detected (NotDetected) 12/03/21 Unknown Entero/Rhino (PCR) Not Detected (NotDetected) 12/03/21 Unknown SARS-CoV-2, RNA, NAAT NEGATIVE (NEGATIVE) 12/03/21 02:23 Impressions Chest X-Ray 12/04/21 07:00 XR chest 1V portable CLINICAL HISTORY: Follow-up left pleural effusion and left basilar consolidation.. COMPARISON STUDY: 12/03/2021 TECHNIQUE: 1 view of the chest FINDINGS: Single frontal view of the chest demonstrates the heart to again be enlarged. Compared to previous examination, there are now bilateral pleural effusions present. There is evidence for left lower lobe alveolar opacity again seen most suspicious for early pneumonia. Minimal right basilar atelectasis is also present. There is no evidence for vascular congestion. There is no acute osseous pathology. IMPRESSION: 1. Compared to previous study, there is no evidence for bilateral pleural effusions, left greater than right. 2. There is again alveolar opacity at the left lung base suspicious for pneumonia. 3. Mild right basilar atelectasis also present. ACT 112: Negative or not required by law. Electronically signed by: Nicolas Gray M.D. 12/04/2021 9:02 AM Resident Activity Tracking Resident Involvement: Resident Care Provided Care Provided: Adult Hospital Medicine (1) Hyperlipidemia Hyperlipidemia type: pure hypercholesterolemia Qualified Code(s): E78.00 - Pure hypercholesterolemia, unspecified (2) Hypertension Hypertension type: essential hypertension Qualified Code(s): I10 - Essential (primary) hypertension
[2021-12-04] MEDS: COLCHICINE 0.6 MG TAB PO SCH ×2 (08:09→17:35)
[2021-12-04] MEDS: ASCORBIC ACID 500 MG TAB PO SCH (08:09)
[2021-12-04] MEDS: CYANOCOBALAMIN (B-12) 500 MCG TABLET PO SCH (08:09)
[2021-12-04] MEDS: CALCIUM 600MG + VIT D 400 IU TAB PO SCH (08:09)
[2021-12-04] MEDS: FOLIC ACID 400 MCG TAB PO SCH (08:10)
[2021-12-04] MEDS: FAMOTIDINE 20 MG in SYRINGE 3 ML IV SCH (08:10)
[2021-12-04] MEDS: ARTIFICIAL TEARS OP SCH ×2 (08:31→21:04)
--- NOTE | 2021-12-04 09:04 | XRay Report ---
XR chest 1V portable CLINICAL HISTORY: Follow-up left pleural effusion and left basilar consolidation.. COMPARISON STUDY: 12/03/2021 TECHNIQUE: 1 view of the chest FINDINGS: Single frontal view of the chest demonstrates the heart to again be enlarged. Compared to previous ex amination, there are now bilateral pleural effusions present. There is evidence for left lower lobe a lveolar opacity again seen most suspicious for early pneumonia. Minimal right basilar atelectasis is also present. There is no evidence for vascular congestion. There is no acute osseous pathology. IMPRESSION: 1. Compared to previous study, there is no evidence for bilateral pleural effusions, left [place] n right. 2. There is again alveolar opacity at the left lung base suspicious for pneumonia. 3. Mild right basilar atelectasis also present. ACT 112: Negative or not required by law. Electronically signed by: Nicolas Gray M.D. 12/04/2021 9:02 AM
[2021-12-04] MEDS: cefTRIAXone SODIUM 2,000 MG in DEXTROSE 5% 50 ML IV SCH (09:26)
--- NOTE | 2021-12-04 10:42 | Cardiology Progress Note ---
Date of Service December 04, 2021 Assessment & Plan (1) Pericardial effusion: Plan: 2. Atrial flutter with RVR - post electrical cardioversion, no recurrence 3. Hypotension requiring pressors - resolved 4. Leukocytosis 5. Hyponatremia - improved 6. Abnormal LFTs 7. TONY - resolved Feeling well. Hemodynamically stable off pressors. Remains in sinus rhythm Repeat echo this AM shows trace-small residual pericardial effusion. Pericardial fluid with high WBC/neutrophils - suspect infectious less likely rheumatologic Hs-Trop has peaked. Low suspicion for ACS. Demand vs myopericarditis. No additional ischemic testing needed while inpatient -- Duration of AFlutter unclear - recommend starting anticoagulation -- apixaban 5mg BID -- No need for AV kaye agents. Continue to hold lisinopril -- Continue colchicine. F/up limited Echo prior to discharge -- F/up cultures, cytology From a cardiac standpoint OK with transfer to telemetry. Admission and Anticipated Discharge Date Admission Date: December 03, 2021 Subjective Feeling well today. Breathing improved. No chest pain. Minimal residual nausea. Fatigue seems improved but hasn't gotten out of bed. Tele - remains in sinus, no events Review of Systems Review of Systems: All systems reviewed & are unremarkable except as noted in HPI & below Physical Exam Physical Exam: General: Comfortable HEENT: Sclerae anicteric Lungs: Clear to auscultation bilaterally Cardiac: Regular rate and rhythm, no murmurs, no rubs. Drain site dressed. no erythema or drainage Vascular: 2+ radial. Distal extremities warm Abdomen: Soft, nontender Extremities: no peripheral edema Neuro: Nonfocal Psych: Alert orient x3, normal affect and mood Results & Data ([facility]) Vital Signs (Past 12 Hours) Vital Signs Temp Pulse Resp BP Pulse Ox 12/04/21 07:30 98.2 F 12/04/21 07:00 66 19 106/70 94 12/04/21 06:01 66 18 113/78 95 12/04/21 06:00 60 15 95 12/04/21 05:00 65 15 128/72 93 12/04/21 04:00 70 15 118/76 95 12/04/21 03:55 72 20 94 12/04/21 03:00 70 16 117/72 94 12/04/21 02:00 73 14 116/73 95 12/04/21 01:00 67 8 L 108/70 95 12/04/21 00:00 74 14 110/77 92 12/03/21 23:30 77 18 94 12/03/21 23:01 82 22 111/77 92 12/03/21 23:00 74 17 91 PG Care Time/CCT Total # of Minutes Spent Total Time Spent with Patient: Total time spent is greater than 50% in coordination of care (as documented) at patient's floor/unit and/or counseling patient: Coding Level of Care Code 48965 Subseq Hosp Care Lvl 3 Diagnoses Pericardial effusion I31.3
--- NOTE | 2021-12-04 10:53 | Critical Care Progress Note ---
Date of Service December 04, 2021 Assessment & Plan (1) Admitted to intensive care unit: (2) Acute hypotension: Plan: Reason Critically Ill: 71-year-old male presenting with hypotension, generalized fatigue, and a flutter. Patient cardioverted in the emergency department and now with persistent hypotension requiring close hemodynamic monitoring and initiation of vasopressors. NEURO - * CAM ICU: NEGATIVE CARDIAC/VASCULAR - --S/p hypotension: Multifactorial Likely from pericardial effusion with A. fib RVR, s/p cardioversion in the ED Continue vasopressor support to keep MAP rater than 65 --Pericardial effusion Etiology is unknown Viral symptoms could be one of the reasons S/p pericardiocentesis 12/04/2011. 260 mL of serosanguineous fluid was removed. Cardiac output improved post pericardiocentesis --New onset A flutter: * S/p cardioversion * Currently normal sinus rhythm * EKG: NSR @ 73 bpm. T wave inversions noted septal/laterally. QTc 438 ms. * Monitor on telemetry. --Elevated troponin Likely secondary to pericardiocentesis No EKG changes Continue to trend RESPIRATORY - * Acute hypoxic respiratory failure: * Likely from pulmonary edema from A. fib with RVR * O2 supplementation to keep oxygen saturation around 90% GI/NUTRITION - * Transaminitis Likely from hypotensive episode Continue to monitor RENAL/LYTES - * TONY--> improving Follow-up urine lites Monitor BUN/creatinine Avoid nephrotoxic medications Strict ins and outs - * Disla in place - Strict I&Os. ENDO - * No h/o DM or Thyroid Dz * BSGs per unit protocol. ISS --> gtt per unit policy. HEME - * Stable H&H ID - * COVID-19 PCR negative Influenza A/B negative Procalcitonin 1.13 Patient has completed course of doxycycline as an outpatient Continue with azithromycin and Rocephin while in the hospital --Prophylaxis VTE: IPC GI: Pepcid Lines: Peripheral Diet: Cardiac Plan: In/out: +165, urine output 2401 Chest x-ray from today seems to be worse compared to yesterday but clinically patient is doing much better. Physical exam his lungs sound better I will start the patient on incentive spirometry Still requiring 2 L of oxygen. If there is any worsening of the shortness of breath or the oxygen requirement is going up 40 mg of Lasix can be given. Whether the patient will need anticoagulation for new onset A. fib to be decided prior to discharge by the primary team Patient hemodynamically stable to be downgrade to medical floor Please note the above document was generated using voice recognition software. It may contain grammatical, syntax or spelling errors.Any formal questions or concerns about the content, text or information contained within the body of this dictation should be directly addressed to the provider for clarification. (3) Weakness: (4) Atrial flutter: Admission and Anticipated Discharge Date Admission Date: December 03, 2021 Subjective Patient seen and examined at bedside. No acute distress, no episodes overnight. Patient states he is feeling better compared to yesterday Breathing is better Denies any headache, no nausea, no vomiting. Fair appetite. No chest pain. Review of Systems Review of Systems: All systems reviewed & are unremarkable except as noted in Subjective Physical Exam Physical Exam: Constitutional: No acute distress HEENT: EOMI, PERRLA Respiratory system: Decreased air entry bilaterally, no wheeze, rhonchi, mild crackles bilateral lower lobes CVS: S1-S2 positive, no murmurs or gallops Abdomen: Soft, nontender, nondistended, positive bowel sounds x4 Extremities: +2 pulses bilaterally radialis/ dorsalis pedis, no cyanosis, no edema Neuro: Awake alert oriented x3 Psych: Normal mood and affect G/U: Positive Disla Skin: no rashes, warm and dry Lymphatic: no cervical or axillary lymphadenopathy Results & Data Results & [facility] ([facility]) Vital Signs (Past 12 Hours) Vital Signs Temp Pulse Resp BP Pulse Ox 12/04/21 07:30 36.8 C 12/04/21 07:00 66 19 106/70 94 12/04/21 06:01 66 18 113/78 95 12/04/21 06:00 60 15 95 12/04/21 05:00 65 15 128/72 93 12/04/21 04:00 70 15 118/76 95 12/04/21 03:55 72 20 94 12/04/21 03:00 70 16 117/72 94 12/04/21 02:00 73 14 116/73 95 12/04/21 01:00 67 8 L 108/70 95 12/04/21 00:00 74 14 110/77 92 12/03/21 23:30 77 18 94 04/15/22 23:01 82 22 111/77 92 12/03/21 23:00 74 17 91 Laboratory Results 12/04/21 04:42 12/04/21 04:42 Coding Level of Care Code 29112 Subseq Hosp Care l 3 Diagnoses Admitted to intensive care unit Z78.9 Acute hypotension I95.9 Weakness R53.1 Atrial flutter I48.92
[2021-12-04] MEDS ORDERED: fentaNYL citrate 100 MCG/2 ML VIAL ONE (11:06)
[2021-12-04] MEDS ORDERED: AMIODARONE 360MG / 200ML D5W IV ONE (11:07)
[2021-12-04] MEDS ORDERED: AMIODARONE 150MG / 100ML D5W IV ONE (11:08)
--- NOTE | 2021-12-04 11:30 | Communication Note ---
Date of Service: December 04, 2021 Critical CARE addendum: Patient went to the commode and while coming back he started to feel dizzy On the monitor patient seemed to be in monomorphic V. tach. Patient was complaining of dizziness denied any shortness of breath. Patient was given 50 MCG of fentanyl and cardioverted at 200 J. Another 25 MCG of fentanyl was given. Post cardioversion patient's initial EKG showed showed sinus rhythm with significant PVCs and follow-up repeat EKG seems to show A. fib with multiple PVCs. Blood pressure was systolic 170, which went down to 150. Heart rate was fluctuating between 90-99, saturation was 95-96% on room air Patient was given 150 mg of amiodarone bolus and he will be started on amiodarone drip I will start the patient on 12.5 mg metoprolol every 12 hours Patient's potassium was 4.5 today, magnesium and phosphorus also within normal limit Patient seems to be having myocarditis-like picture from an underlying illness which seems to be viral so far Dr. Thrasher was notified about above finding. As per him the morning echo showed trace pericardial effusion and the ejection fraction was good. I have personally spent 35 minutes of critical care time in the direct management of this patient. This is a life/limb threatening event. This includes time spent evaluating patient, direct bedside care, chart review, placing orders, interpretation of diagnostic studies, discussion with consultants, patient, and family members, as well as other required patient management activities. This time is exclusive of all separately billable procedures, and teaching time and separate from and in addition to any other critical care service time. Please note the above document was generated using voice recognition software. It may contain grammatical, syntax or spelling errors. Coding Level of Care Code Critical Care 1st 30-74 mins Time Spent (min) 35
[2021-12-04] MEDS ORDERED: STAT IV Infusion **Titration per Protocol STA (11:32)
[2021-12-04] MEDS ORDERED: AMIODARONE IV BOLUS & DRIP IV STA (11:32)
[2021-12-04] MEDS ORDERED: 0.2 MICRON FILTER SET 1 EA IV ONE (11:32)
--- NOTE | 2021-12-04 11:43 | XCELERA ---
[id number] [email or web address]\[id number]
[2021-12-04] MEDS ORDERED: AMIODARONE / D5W 150 MG/100 ML BAG IV STA (11:44)
--- NOTE | 2021-12-04 11:48 | Electrocardiogram Report ---
Test Reason : Blood Pressure : / mmHG Vent. Rate : 093 BPM Atrial Rate : 093 BPM P-R Int : 206 ms QRS Dur : 106 ms QT Int : 360 ms P-R-T Axes : 038 -84 036 degrees QTc Int : 447 ms Poor data quality, interpretation may be adversely affected Normal sinus rhythm Left axis deviation Low voltage QRS Cannot rule out Anterior infarct (cited on or before 03-DEC-2021) Abnormal ECG When compared with ECG of 03-DEC-2021 01:58, Incomplete right bundle branch block is no longer Present Confirmed by Zenon Romero ([id number]) on 12/04/2021 11:48:41 AM Referred By: REFERRED SELF Confirmed By:Ignacio Romero
[2021-12-04] MEDS ORDERED: AMIODARONE / D5W 360 MG/200 ML BAG IV ONE (12:00)
[2021-12-04] MEDS: PANTOprazole 40 MG TAB PO SCH ×2 (12:23→21:03)
[2021-12-04] MEDS: METOPROLOL TARTRATE 25 MG TAB PO SCH ×2 (12:23→21:04)
[2021-12-04] MEDS: IBUPROFEN 600 MG TAB PO SCH ×2 (14:05→21:03)
--- NOTE | 2021-12-04 16:09 | Billing Data ---
Date of Service December 04, 2021 Coding Level of Care Code 19250 Subseq Hosp Care Lvl 1
[2021-12-04] MEDS: AMIODARONE / D5W 360 MG/200 ML BAG IV SCH (17:34)
[2021-12-04] MEDS: APIXABAN 5 MG TABLET PO SCH (21:03)
[2021-12-05] MEDS: AMIODARONE / D5W 360 MG/200 ML BAG IV SCH ×2 (05:00→18:00)
[2021-12-05 05:22] LABS: Basophils # (auto) 0.01 K/uL (0-0.2); Basophils % (auto) 0.1 %; Eosinophils # (auto) 0.03 K/uL (0-0.5); Eosinophils % (auto) 0.3 %; Hematocrit (blood only) 35.9 % (42-52); Hemoglobin 11.8 g/dL (14.0-18.0); Immature Granulocytes # (auto) 0.03 K/uL (0.00-0.02); Immature Granulocytes % (auto) 0.3 %; Lymphocytes # (auto) 2.17 K/uL (1.2-3.4); Lymphocytes % (auto) 18.1 %; Mean Corpuscular Hemoglobin 30.2 pg (25-34); Mean Corpuscular Hgb Conc 32.9 g/dL (32-36); Mean Corpuscular Volume 91.8 fL (80-100); Mean Platelet Volume 9.7 fL (7.4-10.4); Monocytes # (auto) 1.02 K/uL (0.11-0.59); Monocytes % (auto) 8.5 %; Neutrophils # (auto) 8.72 K/uL (1.4-6.5); Neutrophils % (auto) 72.7 %; Platelet Count 277 K/uL (130-400); RDW Coefficient of Variation 13.9 % (11.5-14.5); RDW Standard Deviation 46.5 fL (36.4-46.3); Red Blood Count 3.91 M/uL (4.7-6.1); White Blood Count 11.98 K/uL (4.8-10.8)
[2021-12-05 05:51] LABS: Albumin Level 3.1 gm/dl (3.4-5.0); BUN Creatinine Ratio 27.2 (10-20); Bilirubin Direct 0.1 mg/dl (0-0.2); Bilirubin,Total 0.4 mg/dl (0.2-1.0); Calcium 8.7 mg/dl (8.5-10.1); Creatinine Clr Calc Pharmacy 99.9 ml/min; Est GFR (Non-African American) 84.6 ml/min; Magnesium 2.3 mg/dl (1.7-2.4); Phosphorus 3.4 mg/dl (2.5-4.9); Potassium 4.6 mmol/L (3.5-5.1); Total Protein 6.2 gm/dl (6.0-8.3)
--- NOTE | 2021-12-05 07:07 | Hospitalist Progress Note ---
Date of Service December 05, 2021 Assessment & Plan (1) Pericardial effusion: Plan: 71 yo M with PMH NERIS, cervical stenosis, HTN, HLD, Anxiety, DDD brought to the ER for weakness and fatigue found to be acutely hypotensive in Afib RVR and admitted to the ICU for continuing support. Hypovolemic and Cardiogenic shock 2/2 pericardial effusion and pericarditis s/p pericardiocentesis - initially requiring pressor support in ICU, now hemodynamically stable - pericardiocentesis on 12/03 drained 260 ml of serosanguinous fluid - follow up TTE showing improved ventricular function and decreased effusion size - cultures of pericardial fluid showing WBC predominance without organisms, likely viral rather than rheumatologic - pathology and Acid fast smear still pending. - colchicine and ibuprofen for pericarditis treatment - HS troponin downtrending from peak of 1033 - respiratory viral panel negative - coxsackie subtypes pending New Afib/Aflutter - s/p electrical conversion with clearance of Afib - Aflutter duration unknown - on daily eliquis for anticoagulation Vtach - run of sustained Vtach while in ICU this afternoon, successfully converted with shock of 200J x1 - started on amiodarone drip LLL Pneumonia - Communia acquired, completed course of doxycycline prior to hospital admission - continue ceftriaxone - WBC decreasing on antibiotics - no risk factors for Staph or Pseudomonas - MRSA nares negative Acute hypoxic respiratory failure, improving - secondary to PNA and cardiac dysfunction as above - goal O2 >90%, currently on 1L nC - pulmonary toilet, no home O2 requirement Transaminitis - Alk Phos 156, ALT 53 - normal AST - likely due to transient hypotensive shock liver/cardioversion, monitor for improvement TONY - due to shock, resolved with fluid resuscitation DVT ppx: eliquis FEN/GI: regular heart healthy Bowel regimen: NA Code Status: full code Dispo: ICU (2) Acute hypotension: (3) Atrial flutter with rapid ventricular response: (4) Hyperlipidemia: (5) Hypertension: (6) NERIS (obstructive sleep apnea): (7) CAP (community acquired pneumonia): (8) Atrial flutter: (9) Transaminitis: Admission and Anticipated Discharge Date Admission Date: December 03, 2021 Supervising Physician Co-Signing Physician Notes I personally examined the patient and verified all smith points of history and exam, discussed case, and agree with decision making with Dr Crystal Sol fib RVR earlierbetter now. Otherwise no complaints Vitals noted, in general he is awake and alert pleasant no distress. HEENT normocephalic atraumatic mucous membranes moist. Breathing unlabored no accessory muscle use good effort. Skin shows no rashes no pallor or icterus. Neuro without focal deficits. Pericardial effusion with tamponade causing shocknow improved status post pericardiocentesis. Probably all a viral cody-/myocarditis picture. V. tach not surprising given the contextshocked to stability. Delilah. fib RVRimproved with beta-blockade. Continue supportive care. Otherwise as above Subjective overnight events: overnight sinus bradycardia at 30, in AM switched back to afib rvr at rate of ~140s, required metoprolol IV to reduce rate. continues to be on amiodarone drip and is tachycardic on monitor. symptomatically feels well. no complaints of SOB/CP other than strange feeling of having been shocked for Vtach yesterday. Review of Systems Review of Systems: All systems reviewed & are unremarkable except as noted in Subjective Physical Exam Physical Exam: Constitutional: well appearing, in no apparent distress, sitting comfortably in bed. Eyes: EOMI, pupils equal and reactive bilaterally, no scleral icterus Cardiac: afib with RVR, no murmurs, gallops or rubs. Normal S1, S2 shock pads on chest Pulm: CTA BL, no wheezes, rhonchi, crackles or rubs, moving air well throughout both lungs Abd: soft, nontender, nondistended, normal bowel sounds, no rebound or guarding Extremities: 2+ peripheral pulses, no edema Neuro: no focal deficits, moving all 4 limbs, A&Ox3 Results & Data Results & Data ([facility]) Vital Signs (Past 12 Hours) Vital Signs Temp Pulse Resp BP Pulse Ox 12/05/21 06:00 36.9 C 51 L 14 96 12/05/21 05:01 62 16 158/102 H 97 12/05/21 05:00 57 L 16 96 12/05/21 04:01 48 L 14 173/96 H 97 12/05/21 04:00 39 L 13 97 12/05/21 03:40 59 L 12 95 12/05/21 03:00 56 L 14 150/112 H 96 12/05/21 02:01 47 L 14 143/98 H 96 12/05/21 02:00 46 L 16 95 12/05/21 01:01 55 L 19 148/99 H 95 12/05/21 01:00 54 L 17 95 12/05/21 00:00 45 L 13 139/88 94 12/04/21 23:01 58 L 16 123/94 94 12/04/21 23:00 61 18 94 12/04/21 22:00 62 16 122/78 95 12/04/21 21:40 64 20 96 12/04/21 21:00 51 L 14 118/79 96 12/04/21 20:00 54 L 16 101/69 95 Resident Activity Tracking Resident Involvement: Resident Care Provided Care Provided: Adult Hospital Medicine (1) Hyperlipidemia Hyperlipidemia type: pure hypercholesterolemia Qualified Code(s): E78.00 - Pure hypercholesterolemia, unspecified (2) Hypertension Hypertension type: essential hypertension Qualified Code(s): I10 - Essential (primary) hypertension
--- NOTE | 2021-12-05 07:25 | Electrocardiogram Report ---
Test Reason : Blood Pressure : / mmHG Vent. Rate : 098 BPM Atrial Rate : 098 BPM P-R Int : 208 ms QRS Dur : 114 ms QT Int : 370 ms P-R-T Axes : 054 -58 063 degrees QTc Int : 472 ms Sinus rhythm with frequent Premature ventricular complexes vs aberrancy Possible Left atrial enlargement Left axis deviation Possible Anterior infarct (cited on or before 03-DEC-2021) Incomplete right bundle branch block Abnormal ECG When compared with ECG of 03-DEC-2021 19:11, Premature ventricular complexes are now Present Confirmed by Zenon Romero ([id number]) on 12/05/2021 7:25:19 AM Referred By: REFERRED SELF Confirmed By:Ignacio Romero
--- NOTE | 2021-12-05 07:27 | Electrocardiogram Report ---
Test Reason : Blood Pressure : / mmHG Vent. Rate : 131 BPM Atrial Rate : 077 BPM P-R Int : 198 ms QRS Dur : 114 ms QT Int : 370 ms P-R-T Axes : 040 -61 063 degrees QTc Int : 546 ms Sinus rhythm with frequent PVCs and fusion beats Left axis deviation Possible Anterior infarct (cited on or before 03-DEC-2021) Abnormal ECG Confirmed by Zenon Romero ([id number]) on 12/05/2021 7:26:55 AM Referred By: REFERRED SELF Confirmed By:Ignacio Romero
[2021-12-05] MEDS: IBUPROFEN 600 MG TAB PO SCH ×3 (07:30→19:35)
[2021-12-05] MEDS: COLCHICINE 0.6 MG TAB PO SCH ×2 (07:30→18:00)
--- NOTE | 2021-12-05 07:59 | XRay Report ---
XR chest 1V portable HISTORY: 71 years-old Male f/u acute shortness of breath COMPARISON: Chest radiograph 12/04/2021 TECHNIQUE: Portable AP view of the chest FINDINGS: The cardiac silhouette is enlarged. Layering pleural effusions with bibasilar consolidation, similar to yesterday's study. Pulmonary vascular congestion. No pneumothorax. Degenerative changes of the pee ulders and spine. Fusion hardware of the cervical spine. IMPRESSION: 1. Cardiomegaly with pulmonary vascular congestion. 2. Unchanged layering pleural effusions with bibasilar consolidation. ACT 112: Negative or not required by law. The above report was generated using voice recognition software. It may contain grammatical, syntax o r spelling errors. Electronically signed by: Apollo Priest M.D. 12/05/2021 7:58 AM
[2021-12-05] MEDS ORDERED: METOPROLOL TARTRATE 1 MG/ML VIAL IV ONE (08:38)
[2021-12-05] MEDS ORDERED: METOPROLOL TARTRATE 1 MG/ML VIAL IV STA (08:39)
[2021-12-05] MEDS: CYANOCOBALAMIN (B-12) 500 MCG TABLET PO SCH (08:52)
[2021-12-05] MEDS: METOPROLOL TARTRATE 25 MG TAB PO SCH ×2 (08:52→19:35)
[2021-12-05] MEDS: PANTOprazole 40 MG TAB PO SCH ×2 (08:52→19:34)
[2021-12-05] MEDS: APIXABAN 5 MG TABLET PO SCH ×2 (08:52→19:35)
[2021-12-05] MEDS: FOLIC ACID 400 MCG TAB PO SCH (08:52)
[2021-12-05] MEDS: CALCIUM 600MG + VIT D 400 IU TAB PO SCH (08:52)
[2021-12-05] MEDS: ASCORBIC ACID 500 MG TAB PO SCH (08:52)
[2021-12-05] MEDS: ARTIFICIAL TEARS OP SCH ×2 (09:41→19:34)
[2021-12-05] MEDS: cefTRIAXone SODIUM 2,000 MG in DEXTROSE 5% 50 ML IV SCH (09:41)
--- NOTE | 2021-12-05 11:43 | Critical Care Progress Note ---
Date of Service December 05, 2021 Assessment & Plan (1) Admitted to intensive care unit: (2) Acute hypotension: Plan: Reason Critically Ill: 71-year-old male presenting with hypotension, generalized fatigue, and a flutter. Patient cardioverted in the emergency department and now with persistent hypotension requiring close hemodynamic monitoring and initiation of vasopressors. NEURO - * CAM ICU: NEGATIVE CARDIAC/VASCULAR - --Sustained V. tach On 12/04/2021 Needed cardioversion with 200 J Has been in and out of A. fib since then Continue with amiodarone and beta-deann for rate control --S/p hypotension: Multifactorial Likely from pericardial effusion with A. fib RVR, s/p cardioversion in the ED Continue vasopressor support to keep MAP rater than 65 --Pericardial effusion Etiology is unknown Viral symptoms could be one of the reasons S/p pericardiocentesis 12/04/2011. 260 mL of serosanguineous fluid was removed. Cardiac output improved post pericardiocentesis --New onset A. fib/A flutter: * S/p cardioversion * Currently normal sinus rhythm * EKG: NSR @ 73 bpm. T wave inversions noted septal/laterally. QTc 438 ms. * Monitor on telemetry. --Elevated troponin Likely secondary to pericardiocentesis No EKG changes Continue to trend RESPIRATORY - * Acute hypoxic respiratory failure: * Likely from pulmonary edema from A. fib with RVR * O2 supplementation to keep oxygen saturation around 90% GI/NUTRITION - * Transaminitis Likely from hypotensive episode Continue to monitor RENAL/LYTES - * TONY--> improving Follow-up urine lites Monitor BUN/creatinine Avoid nephrotoxic medications Strict ins and outs - * Disla in place - Strict I&Os. ENDO - * No h/o DM or Thyroid Dz * BSGs per unit protocol. ISS --> gtt per unit policy. HEME - * Stable H&H ID - * COVID-19 PCR negative Influenza A/B negative Procalcitonin 1.13 Patient has completed course of doxycycline as an outpatient Continue with azithromycin and Rocephin while in the hospital --Prophylaxis VTE: Apixaban GI: Pepcid Lines: Peripheral Diet: Cardiac Plan: In/out: -1780, urine output 2701 Chest x-ray again shows bilateral pleural effusion. Patient needed Disla as he was retaining urine Continue with amiodarone, continue with metoprolol 12.5 every 12h. If need be will increase to 25 every 12h He does have bilateral pleural effusion more on the left side, all fluids have been stopped rather than IV amiodarone. We will consider 20 mg of Lasix I have personally spent 35 minutes of critical care time in the direct management of this patient. This is a life/limb threatening event. This includes time spent evaluating patient, direct bedside care, chart review, placing orders, interpretation of di agnostic studies, discussion with consultants, patient, and family members, as well as other required patient management activities. This time is exclusive of all separately billable procedures, and teaching time and separate from and in addition to any other critical care service time. Please note the above document was generated using voice recognition software. It may contain grammatical, syntax or spelling errors. (3) Weakness: (4) Atrial flutter: Admission and Anticipated Discharge Date Admission Date: December 03, 2021 Subjective Patient seen and examined at bedside. No acute distress, no adverse events overnight Denies any headache, no nausea, no vomiting Had breakfast in the morning Urinating well after Disla being placed in Has been using incentive spirometry Review of Systems Review of Systems: All systems reviewed & are unremarkable except as noted in Subjective Physical Exam Physical Exam: Constitutional: No acute distress HEENT: EOMI, PERRLA Respiratory system: Decreased air entry bilaterally, no wheeze, rhonchi, mild crackles bilateral lower lobes CVS: S1-S2 positive, no murmurs or gallops Abdomen: Soft, nontender, nondistended, positive bowel sounds x4 Extremities: +2 pulses bilaterally radialis/ dorsalis pedis, no cyanosis, no edema Neuro: Awake alert oriented x3 Psych: Normal mood and affect G/U: Positive Disla Skin: no rashes, warm and dry Lymphatic: no cervical or axillary lymphadenopathy Results & Data Results & Data ([facility]) Vital Signs (Past 12 Hours) Vital Signs Temp Pulse Resp BP Pulse Ox 12/05/21 08:40 142 H 135/94 12/05/21 08:04 36.7 C 68 20 130/81 96 12/05/21 08:01 36.7 C 66 16 160/107 H 96 12/05/21 08:00 36.7 C 69 17 96 12/05/21 07:01 19 159/93 H 97 12/05/21 07:00 63 19 98 12/05/21 06:01 46 L 10 L 135/97 97 12/05/21 06:00 36.9 C 51 L 14 96 12/05/21 05:01 62 16 158/102 H 97 12/05/21 05:00 57 L 16 96 12/05/21 04:01 48 L 14 173/96 H 97 12/05/21 04:00 39 L 13 97 12/05/21 03:40 59 L 12 95 12/05/21 03:00 56 L 14 150/112 H 96 12/05/21 02:01 47 L 14 143/98 H 96 12/05/21 02:00 46 L 16 95 12/05/21 01:01 55 L 19 148/99 H 95 12/05/21 01:00 54 L 17 95 12/05/21 00:00 45 L 13 139/88 94 Laboratory Results 12/05/21 04:47 12/05/21 04:47 Coding Level of Care Code Critical Care 1st 30-74 mins Diagnoses Admitted to intensive care unit Z78.9 Acute hypotension I95.9 Weakness R53.1 Atrial flutter I48.92 Time Spent (min) 35
--- NOTE | 2021-12-05 11:44 | Procedure Note ---
Procedure Note Date of Service December 05, 2021 Note Bedside Ultrasound: Lung: Right:-small right-sided pleural effusion, dependent atelectasis, B-lines appreciated posteriorly, a lines anteriorly Left:-Small to moderate left-sided pleural effusion with atelectatic lung, B- lines appreciated posteriorly, a lines anteriorly Heart: Small pericardial effusion appreciated anterior and posterior. Good ejection fraction. RVOT normal in size, no collapse on diastole Please note the above document was generated using voice recognition software. It may contain grammatical, syntax or spelling errors.Any formal questions or concerns about the content, text or information contained within the body of this dictation should be directly addressed to the provider for clarification. Coding CPT Codes Pulmonary/Thoracic - Pulmonary and Thoracic: 26028 US, Chest, real time with imaging documentation ([id number]) [facility] Procedure Codes (Charges) Pulmonary/Thoracic Procedure 1: Pulmonary and Thoracic: 75389 US, Chest, real time with imaging documentation
--- NOTE | 2021-12-05 12:06 | Cardiology Progress Note ---
Date of Service December 05, 2021 Assessment & Plan (1) Pericardial effusion: Plan: 2. Atrial flutter with RVR - post electrical cardioversion, no recurrence 3. Hypotension requiring pressors - resolved 4. Leukocytosis - improved 5. Hyponatremia - resolved 6. Abnormal LFTs - worsening 7. TONY - resolved Feeling well. Hemodynamically stable off pressors. One episode of recurrent atrial fibrillation and some elevated rates. Relatively asymptomatic. He converted back to sinus rhythm on his own. Will continue the amiodarone infusion until tomorrow morning and convert him to an oral regimen Patient was started on appropriate anticoagulation. Continue colchicine. Aspirin for anti-inflammatory effect Pericardial fluid without growth to date Some bradycardia on current dose of metoprolol and amiodarone while sleeping. Will continue to monitor. Admission and Anticipated Discharge Date Admission Date: December 03, 2021 Subjective This morning patient claimed he feeling better overall. He has not report significant dyspnea at rest. In fact, he did not report breathing difficulty in general, but does have some upper airway and sinus congestion. current chest pains. He has not been ambulatory to the [facility]. Review of Systems Review of Systems: Per HPI. No abdominal complaints. No fevers or chills. Physical Exam Physical Exam: General: Comfortable HEENT: Sclerae anicteric Lungs: Clear to auscultation bilaterally. Normal respiratory effort Cardiac: Regular rate and rhythm, no murmurs, no rubs. Vascular: 2+ radial. Distal extremities warm Extremities: no peripheral edema Neuro: Nonfocal Psych: Alert orient x3, normal affect and mood. Answer questions appropriately. Results & Data ([facility]) Vital Signs (Past 12 Hours) Vital Signs Temp Pulse Resp BP Pulse Ox 12/05/21 08:40 142 H 135/94 12/05/21 08:04 36.7 C 68 20 130/81 96 12/05/21 08:01 36.7 C 66 16 160/107 H 96 12/05/21 08:00 36.7 C 69 17 96 12/05/21 07:01 19 159/93 H 97 12/05/21 07:00 63 19 98 12/05/21 06:01 46 L 10 L 135/97 97 12/05/21 06:00 36.9 C 51 L 14 96 12/05/21 05:01 62 16 158/102 H 97 12/05/21 05:00 57 L 16 96 12/05/21 04:01 48 L 14 173/96 H 97 12/05/21 04:00 39 L 13 97 12/05/21 03:40 59 L 12 95 12/05/21 03:00 56 L 14 150/112 H 96 12/05/21 02:01 47 L 14 143/98 H 96 12/05/21 02:00 46 L 16 95 12/05/21 01:01 55 L 19 148/99 H 95 12/05/21 01:00 54 L 17 95 12/05/21 00:00 45 L 13 139/88 94 Laboratory Results Abnormal Lab Results 12/04/21 12/05/21 12/05/21 16:46 04:47 04:47 WBC 11.98 H RBC 3.91 L Hgb 11.8 L Hct 35.9 L MCV 91.8 MCH 30.2 MCHC 32.9 RDW Std Deviation 46.5 H RDW Coeff of Bryce 13.9 Plt Count 277 MPV 9.7 Immature Gran % (Auto) 0.3 Neut % (Auto) 72.7 Lymph % (Auto) 18.1 Haywood % (Auto) 8.5 Eos % (Auto) 0.3 Baso % (Auto) 0.1 Neut # (Auto) 8.72 H Lymph # (Auto) 2.17 [place]wood # (Auto) 1.02 H Eos # (Auto) 0.03 Baso # (Auto) 0.01 Immature Gran # (Auto) 0.03 H Sodium 137 Potassium 4.6 Chloride 106 Carbon Dioxide 25 Anion Gap 6 BUN 25 H Creatinine 0.92 Est Cr Clr Drug Dosing 99.9 Est GFR ( Amer) 98.0 Est GFR (Non-Af Amer) 84.6 BUN/Creatinine Ratio 27.2 H Glucose 101 H POC Glucose 95 Calcium 8.7 Phosphorus 3.4 Magnesium 2.3 Total Bilirubin 0.4 Direct Bilirubin 0.1 AST 63 H ALT 118 H Alkaline Phosphatase 126 H Total Protein 6.2 Albumin 3.1 L Diagnostic Findings Echocardiogram performed 12/03/2021: Normal LV systolic function with ejection fraction of 55-60%. Stage II diastolic dysfunction. No significant valvular pathology. Moderate pericardial effusion. PG Care Time/CCT Total # of Minutes Spent Total Time Spent with Patient: Total time spent is greater than 50% in coordination of care (as documented) at patient's floor/unit and/or counseling patient: Coding Level of Care Code 37385 Subseq Hosp Care Lvl 2 Diagnoses Pericardial effusion I31.3
--- NOTE | 2021-12-05 16:46 | Billing Data ---
Date of Service December 05, 2021 Coding Level of Care Code 88796 Subseq Hosp Care Lvl 1
[2021-12-05] MEDS ORDERED: FUROSEMIDE INJ 20 MG/2 ML VIAL IV SCH (17:00)
[2021-12-05] MEDS ORDERED: METOPROLOL TARTRATE 1 MG/ML VIAL IV PRN (18:13)
[2021-12-06 05:13] LABS: Basophils # (auto) 0.01 K/uL (0-0.2); Basophils % (auto) 0.1 %; Eosinophils # (auto) 0.05 K/uL (0-0.5); Eosinophils % (auto) 0.6 %; Hematocrit (blood only) 36.7 % (42-52); Hemoglobin 12.2 g/dL (14.0-18.0); Immature Granulocytes # (auto) 0.02 K/uL (0.00-0.02); Immature Granulocytes % (auto) 0.2 %; Lymphocytes # (auto) 1.94 K/uL (1.2-3.4); Lymphocytes % (auto) 24.2 %; Mean Corpuscular Hemoglobin 30.2 pg (25-34); Mean Corpuscular Hgb Conc 33.2 g/dL (32-36); Mean Corpuscular Volume 90.8 fL (80-100); Mean Platelet Volume 9.3 fL (7.4-10.4); Monocytes # (auto) 0.68 K/uL (0.11-0.59); Monocytes % (auto) 8.5 %; Neutrophils # (auto) 5.32 K/uL (1.4-6.5); Neutrophils % (auto) 66.4 %; Platelet Count 260 K/uL (130-400); RDW Coefficient of Variation 13.7 % (11.5-14.5); RDW Standard Deviation 45.5 fL (36.4-46.3); Red Blood Count 4.04 M/uL (4.7-6.1); White Blood Count 8.02 K/uL (4.8-10.8)
[2021-12-06 05:36] LABS: Bilirubin Direct 0.1 mg/dl (0-0.2); Bilirubin,Total 0.4 mg/dl (0.2-1.0); Calcium 8.7 mg/dl (8.5-10.1); Creatinine Clr Calc Pharmacy 98.3 ml/min; Est GFR (African American) 101.1 ml/min; Est GFR (Non-African American) 87.2 ml/min; Phosphorus 4.3 mg/dl (2.5-4.9); Potassium 4.1 mmol/L (3.5-5.1); Total Protein 5.8 gm/dl (6.0-8.3)
[2021-12-06] MEDS: COLCHICINE 0.6 MG TAB PO SCH ×2 (05:45→17:52)
[2021-12-06] MEDS: AMIODARONE / D5W 360 MG/200 ML BAG IV SCH (05:46)
[2021-12-06] MEDS: IBUPROFEN 600 MG TAB PO SCH ×3 (05:46→19:46)
--- NOTE | 2021-12-06 06:47 | Hospitalist Progress Note ---
Date of Service December 06, 2021 Assessment & Plan (1) Pericardial effusion: Plan: 71 yo M with PMH NERIS, cervical stenosis, HTN, HLD, Anxiety, DDD brought to the ER for weakness and fatigue found to be acutely hypotensive in Afib RVR and admitted to the ICU for continuing support. Hypovolemic and Cardiogenic shock 2/2 pericardial effusion and pericarditis s/p pericardiocentesis - initially requiring pressor support in ICU, now hemodynamically stable - pericardiocentesis on 12/03 drained 260 ml of serosanguinous fluid - follow up TTE showing improved ventricular function and decreased effusion size - cultures of pericardial fluid showing WBC predominance without organisms, likely viral rather than rheumatologic - pathology and Acid fast smear still pending. - colchicine and ibuprofen for pericarditis treatment - HS troponin downtrending from peak of 1033 - respiratory viral panel negative - coxsackie subtypes pending New Afib/Aflutter - s/p electrical conversion with clearance of Afib - Aflutter duration unknown - on daily eliquis for anticoagulation Vtach - run of sustained Vtach while in ICU this afternoon, successfully converted with shock of 200J x1 - started on amiodarone drip LLL Pneumonia - Communia acquired, completed course of doxycycline prior to hospital admission - continue ceftriaxone - WBC decreasing on antibiotics - no risk factors for Staph or Pseudomonas - MRSA nares negative Acute hypoxic respiratory failure, improving - secondary to PNA and cardiac dysfunction as above - goal O2 >90%, currently on 1L nC - pulmonary toilet, no home O2 requirement Transaminitis - Alk Phos 156, ALT 53 - normal AST - likely due to transient hypotensive shock liver/cardioversion, monitor for improvement TONY - due to shock, resolved with fluid resuscitation DVT ppx: eliquis FEN/GI: regular heart healthy Bowel regimen: NA Code Status: full code Dispo: ICU (2) Acute hypotension: (3) Atrial flutter with rapid ventricular response: (4) Hyperlipidemia: (5) Hypertension: (6) NERIS (obstructive sleep apnea): (7) CAP (community acquired pneumonia): (8) Atrial flutter: (9) Transaminitis: Admission and Anticipated Discharge Date Admission Date: December 03, 2021 Results & Data Results & Data ([facility]) Vital Signs (Past 12 Hours) Vital Signs Temp Pulse Resp BP Pulse Ox 12/06/21 05:00 36.8 C 54 L 20 96 12/06/21 04:30 36.8 C 52 L 14 95 12/06/21 04:00 36.8 C 53 L 14 132/81 92 12/06/21 03:30 36.8 C 66 23 96 12/06/21 03:01 36.7 C 46 L 17 118/71 94 12/06/21 03:00 36.7 C 42 L 11 L 92 12/06/21 02:30 36.7 C 49 L 17 95 12/06/21 02:05 47 L 12 94 12/06/21 02:00 36.8 C 44 L 13 101/72 12/06/21 01:30 36.8 C 47 L 15 92 12/06/21 01:01 36.8 C 66 18 154/93 H 95 12/06/21 01:00 36.9 C 70 14 92 12/06/21 00:30 36.8 C 47 L 13 95 12/06/21 00:00 36.8 C 44 L 15 141/84 H 94 12/05/21 23:30 36.8 C 41 L 15 95 12/05/21 23:00 36.9 C 44 L 16 114/85 12/05/21 22:50 55 L 16 98 12/05/21 22:30 37.0 C 40 L 16 96 12/05/21 22:00 37.0 C 49 L 12 123/78 96 12/05/21 21:30 37.0 C 41 L 12 95 12/05/21 21:00 37.0 C 50 L 14 138/81 97 12/05/21 20:30 37.0 C 50 L 14 95 12/05/21 20:00 37.0 C 59 L 14 143/91 H 97 12/05/21 19:44 61 14 98 12/05/21 19:30 37.0 C 52 L 16 95 12/05/21 19:00 37.0 C 50 L 16 125/77 96 (1) Hyperlipidemia Hyperlipidemia type: pure hypercholesterolemia Qualified Code(s): E78.00 - Pure hypercholesterolemia, unspecified (2) Hypertension Hypertension type: essential hypertension Qualified Code(s): I10 - Essential (primary) hypertension
--- NOTE | 2021-12-06 08:05 | Critical Care Progress Note ---
Date of Service December 06, 2021 Assessment & Plan (1) Pericardial effusion: (2) Admitted to intensive care unit: (3) Acute hypotension: (4) Weakness: (5) Atrial flutter: (6) Transaminitis: Plan: Reason Critically Ill: 71-year-old male presenting with hypotension, generalized fatigue, and a flutter. Patient cardioverted in the emergency department and now with persistent hypotension requiring close hemodynamic monitoring and initiation of vasopressors. NEURO - * CAM ICU: NEGATIVE CARDIAC/VASCULAR - Atrial flutter with RVR status post electrical cardioversion On 12/04/2021 Defer rhythm control strategy of amiodarone to cardiology for patient's underlying atrial flutter with RVR. Continue low-dose metoprolol. --S/p hypotension, resolved --Pericardial effusion Etiology is unknown-cultures and cytology pending. Continue colchicine and aspirin. S/p pericardiocentesis 12/04/2011. 260 mL of serosanguineous fluid was removed. Cardiac output improved post pericardiocentesis --Elevated troponin Likely secondary to pericardiocentesis No EKG changes Continue to trend RESPIRATORY - Left pleural effusion and atelectasis GI/NUTRITION - * Transaminitis Likely from hypotensive episode, stable Continue to monitor RENAL/LYTES - * TONY--> improving Follow-up urine lites Monitor BUN/creatinine Avoid nephrotoxic medications Strict ins and outs - * Disla in place - Strict I&Os. ENDO - * No h/o DM or Thyroid Dz * BSGs per unit protocol. ISS --> gtt per unit policy. HEME - * Stable H&H ID - * COVID-19 PCR negative Influenza A/B negative Procalcitonin 1.13 Patient has completed course of doxycycline as an outpatient Continue with Rocephin while in the hospital --Prophylaxis VTE: Apixaban GI: Pepcid Lines: Peripheral Diet: Cardiac Ok to downgrade out of the ICU. Admission and Anticipated Discharge Date Admission Date: December 03, 2021 Subjective Patient seen and examined. Tolerating diet well. No overnight events. Review of Systems Review of Systems: All systems reviewed & are unremarkable except as noted in HPI & below Physical Exam Physical Exam: Constitutional: No acute distress HEENT: EOMI, PERRLA Respiratory system: Diminished bilaterally. No increased work of breathing. CVS: S1-S2 positive, no murmurs or gallops Abdomen: Soft, nontender, nondistended, positive bowel sounds x4 Extremities: +2 pulses bilaterally radialis/ dorsalis pedis, no cyanosis, no edema Neuro: Awake alert oriented x3 Psych: Normal mood and affect G/U: Positive Disla Skin: no rashes, warm and dry Lymphatic: no cervical or axillary lymphadenopathy Results & Data Results & Data ([facility]) Vital Signs (Past 12 Hours) Vital Signs Temp Pulse Resp BP Pulse Ox 12/06/21 06:30 36.9 C 46 L 12 94 12/06/21 06:00 36.8 C 50 L 15 115/81 95 12/06/21 05:30 36.8 C 43 L 12 96 12/06/21 05:00 36.8 C 54 L 20 96 12/06/21 04:30 36.8 C 52 L 14 95 12/06/21 04:00 36.8 C 53 L 14 132/81 92 12/06/21 03:30 36.8 C 66 23 96 12/06/21 03:01 36.7 C 46 L 17 118/71 94 12/06/21 03:00 36.7 C 42 L 11 L 92 12/06/21 02:30 36.7 C 49 L 17 95 12/06/21 02:05 47 L 12 94 12/06/21 02:00 36.8 C 44 L 13 101/72 12/06/21 01:30 36.8 C 47 L 15 92 12/06/21 01:01 36.8 C 66 18 154/93 H 95 12/06/21 01:00 36.9 C 70 14 92 12/06/21 00:30 36.8 C 47 L 13 95 12/06/21 00:00 36.8 C 44 L 15 141/84 H 94 12/05/21 23:30 36.8 C 41 L 15 95 12/05/21 23:00 36.9 C 44 L 16 114/85 12/05/21 22:50 55 L 16 98 12/05/21 22:30 37.0 C 40 L 16 96 12/05/21 22:00 37.0 C 49 L 12 123/78 96 12/05/21 21:30 37.0 C 41 L 12 95 12/05/21 21:00 37.0 C 50 L 14 138/81 97 12/05/21 20:30 37.0 C 50 L 14 95 12/05/21 20:00 37.0 C 59 L 14 143/91 H 97 Coding Level of Care Code 30078 Subseq Hosp Care l 2 Diagnoses Admitted to intensive care unit Z78.9 Acute hypotension I95.9 Weakness R53.1 Atrial flutter I48.92 Pericardial effusion I31.3 Transaminitis R74.01
--- NOTE | 2021-12-06 08:21 | XRay Report ---
XR chest 1V portable HISTORY: Shortness of breath. Follow-up. Pleural effusions. COMPARISON: Chest 12/05/2021. FINDINGS: The cardiac silhouette remains enlarged. Small bilateral pleural effusions persist. Hazy bi basilar densities likely represent a layering pleural effusions. No pneumothorax. The upper lung zone s remain clear. No evidence for pulmonary edema. Cervical spinal fusion hardware is again noted. IMPRESSION: No change in the cardiac silhouette enlargement and layering pleural effusions. ACT 112: Negative or not required by law. Electronically signed by: Peter Head M.D. 12/06/2021 8:20 AM
--- NOTE | 2021-12-06 08:48 | Medical Student Progress Note ---
Date of Service December 06, 2021 Assessment & Plan (1) Pericardial effusion: Plan: 71 yo M with PMH NERIS, cervical stenosis, HTN, HLD, Anxiety, DDD brought to the ER for weakness and fatigue found to be acutely hypotensive in A flutter with RVR due to pericardial effusion with tamponade, then requiring ICU level care for vasopressors, stepped down on 12/06, and improving overall. Hypovolemic and Cardiogenic shock 2/2 pericardial effusion and pericarditis s/p pericardiocentesis -12/02: initially requiring pressor support in ICU, now hemodynamically stable - 12/03: pericardiocentesis drained 260 ml of serosanguinous fluid - follow up TTE showing improved ventricular function and decreased effusion size - cultures of pericardial fluid showing WBC predominance without organisms, likely viral rather than rheumatologic, pathology and Acid fast smear still pending. - colchicine and aspirin for pericarditis treatment - HS troponin downtrending from peak of 1033 - respiratory viral panel negative - coxsackie subtypes pending Vtach - run of sustained Vtach while in ICU Monday, successfully converted with shock of 200J x1 - 12/04: started on amiodarone drip - 12/06: discontinued amiodarone drip, transition to oral (400 for 2 days, 200 thereafter) Acute hypoxic respiratory failure, improving - secondary to PNA and cardiac dysfunction as above - goal O2 >90%, currently on 1L nC - pulmonary toilet, no home O2 requirement TONY - due to shock, resolved with fluid resuscitation Atrial flutter with rapid ventricular response - s/p electrical conversion with clearance of Afib - Aflutter duration unknown - on daily eliquis for anticoagulation - metoprolol held for 2 days due to bradycardia Transaminitis - 12/06: Alk Phos 126, ALT 116, AST 56 - likely due to transient hypotensive shock liver/cardioversion, monitor for improvement CAP (community acquired pneumonia) LLL - Community acquired, completed course of doxycycline prior to hospital admission - continue ceftriaxone, azithromycin stopped - WBC decreasing on antibiotics - no risk factors for Staph or Pseudomonas - MRSA nares negative Plan: FEN/GI: Heart healthy ppx: SCDs code: full dispo: Med/tele Admission and Anticipated Discharge Date Admission Date: December 03, 2021 Supervising Attestation Patient seen and examined with medical student Josephine Milian and PGY-2 Dr. Love. Agree with history, exam findings, assessment and plan of care as outlined. In brief, Mr. Saba 71 year old male with hx of NERIS, HTN, HLD, anxiety, degenerative disc disease and cervical stenosis admitted with afib with RVR resulting in hypotension. Feels well. No chest pain. Nurse noted a previous episode of urinary retention following removal earlier this admission. Patient does report frequent urinary and times when he will urinate, then not long after will have to urinate again. Denies feeling of incomplete bladder emptying, weak urinary stream, or straining with urination. 1. Cardiogenic shock. Off pressors. Downgraded to tele. 2. Myopericarditis with pericardial effusion. s/p pericardiocentesis on 12/03 with improvement in ventricular function. Fluid path and acid fast pending. Continue colchicine and ibuprofen. RVP neg. Coxsackie subtypes pending. 3. A-flutter with RVR. s/p electrical conversion. AC with Eliquis. Continue metoprolol tartrate 12.5mg BID. 4. Sustained Vtach episode. Transitioned from amio gtt to oral amio today. 5. Bradycardia. Asymptomatic. He is beta-blocked so will continue to monitor. Appreciate cardiology recommendations. 6. LLL pneumonia (CAP). On ceftriaxone. 7. Acute hypoxic respiratory failure. Resolved. Off supplemental oxygen. 8. Tansaminitis. AST and ALT slightly up. 9. Urinary retention. Had an issue with urinary retention earlier this admission after was removed. Once he is up on the floor, we can attempt removal again and add in Flomax. Dispo: pending clinical improvement. Jessi Miguel is a 71 year old man on hospital day 4 presenting initially for weakness, fatigue and lightheadedness following pneumonia treatment and found to have a pericardial effusion with tamponade and in aflutter with RVR. He feels improve compared to admission but still has some weakness and fatigue. No chest pain or shortness of breath, He has a fair appetite. Moving bowels daily. Review of Systems Review of Systems: All systems reviewed & are unremarkable except as noted in HPI & below Physical Exam Physical Exam: General: Alert and oriented x 3. No acute distress Pulm: clear to auscultation, no wheezes/rales/rhonchi, no clubbing Cardiac: distant heart sounds, RRR, no murmurs/rubs/gallops good capillary refill Abdominal: Normal bowel sounds. Nontender, nondistended, soft. Results & Data ([facility]) Vital Signs (Past 12 Hours) Vital Signs Temp Pulse Resp BP Pulse Ox 12/06/21 06:30 36.9 C 46 L 12 94 12/06/21 06:00 36.8 C 50 L 15 115/81 95 12/06/21 05:30 36.8 C 43 L 12 96 12/06/21 05:00 36.8 C 54 L 20 96 12/06/21 04:30 36.8 C 52 L 14 95 12/06/21 04:00 36.8 C 53 L 14 132/81 92 12/06/21 03:30 36.8 C 66 23 96 12/06/21 03:01 36.7 C 46 L 17 118/71 94 12/06/21 03:00 36.7 C 42 L 11 L 92 12/06/21 02:30 36.7 C 49 L 17 95 12/06/21 02:05 47 L 12 94 12/06/21 02:00 36.8 C 44 L 13 101/72 12/06/21 01:30 36.8 C 47 L 15 92 12/06/21 01:01 36.8 C 66 18 154/93 H 95 12/06/21 01:00 36.9 C 70 14 92 12/06/21 00:30 36.8 C 47 L 13 95 12/06/21 00:00 36.8 C 44 L 15 141/84 H 94 12/05/21 23:30 36.8 C 41 L 15 95 12/05/21 23:00 36.9 C 44 L 16 114/85 12/05/21 22:50 55 L 16 98 12/05/21 22:30 37.0 C 40 L 16 96 12/05/21 22:00 37.0 C 49 L 12 123/78 96 12/05/21 21:30 37.0 C 41 L 12 95 12/05/21 21:00 37.0 C 50 L 14 138/81 97
[2021-12-06] MEDS: ASCORBIC ACID 500 MG TAB PO SCH (09:10)
[2021-12-06] MEDS: APIXABAN 5 MG TABLET PO SCH ×2 (09:10→19:44)
[2021-12-06] MEDS: ARTIFICIAL TEARS OP SCH ×2 (09:10→19:45)
[2021-12-06] MEDS: CALCIUM 600MG + VIT D 400 IU TAB PO SCH (09:11)
[2021-12-06] MEDS: FOLIC ACID 400 MCG TAB PO SCH (09:11)
[2021-12-06] MEDS: METOPROLOL TARTRATE 25 MG TAB PO SCH ×2 (09:11→19:45)
[2021-12-06] MEDS: CYANOCOBALAMIN (B-12) 500 MCG TABLET PO SCH (09:11)
[2021-12-06] MEDS: PANTOprazole 40 MG TAB PO SCH ×2 (09:11→19:45)
[2021-12-06] MEDS: cefTRIAXone SODIUM 2,000 MG in DEXTROSE 5% 50 ML IV SCH (10:36)
[2021-12-06] MEDS ORDERED: POLYETHYLENE (MIRALAX) 17 GM PACK PO SCH (14:00)
[2021-12-06] MEDS: AMIODARONE 200 MG TAB PO SCH (14:43)
--- NOTE | 2021-12-06 17:19 | Cardiology Progress Note ---
Date of Service December 06, 2021 Assessment & Plan (1) Pericardial effusion: Plan: Suspected viral illness with myopericarditis 2. Atrial flutter/atrial fibrillation with RVR 3. Wide-complex tachycardiasuspected SVT with aberrancy 4. Hypotension requiring pressors - resolved 5. TONY - resolved Feeling well. Has had recurrent atrial fibrillation/flutter with RVR, less symptomatic, responded to beta-blockers. No signs of heart failure exam today. Agree with transition from IV amiodarone to p.o. amiodarone 400 mg twice daily continue anticoagulation with Eliquis. Continue current beta-deann Continue colchicine, aspirin. up out of bed, can transition to telemetry. Admission and Anticipated Discharge Date Admission Date: December 03, 2021 Subjective Feeling well today. No recurrent chest pain. Breathing comfortably. Feels weak but thinks just from not doing anything. Telemetry reviewedbrief episodes of A. fib/flutter yesterday given IV metoprolol. Review of Systems Review of Systems: All systems reviewed & are unremarkable except as noted in HPI & below Physical Exam Physical Exam: General: Comfortable HEENT: Sclerae anicteric Lungs: Clear to auscultation bilaterally Cardiac: Regular rate and rhythm, no murmurs, no rubs. Drain site dressed. no erythema or drainage Vascular: 2+ radial. Distal extremities warm Abdomen: Soft, nontender Extremities: no peripheral edema Neuro: Nonfocal Psych: Alert orient x3, normal affect and mood Results & Data ([facility]) Vital Signs (Past 12 Hours) Vital Signs Temp Pulse Resp BP Pulse Ox 12/06/21 15:00 98.8 F 55 L 17 168/96 H 95 12/06/21 14:00 98.8 F 44 L 15 144/90 H 96 12/06/21 13:00 98.6 F 54 L 21 153/96 H 12/06/21 12:00 98.4 F 62 20 166/95 H 96 12/06/21 11:00 98.4 F 55 L 16 134/88 98 12/06/21 10:00 98.4 F 59 L 15 138/84 92 12/06/21 09:13 98.4 F 61 16 131/76 95 12/06/21 09:00 98.6 F 62 16 96 12/06/21 08:04 98.6 F 72 18 144/113 H 90 04/18/22 08:00 98.4 F 62 22 95 12/06/21 07:00 98.4 F 47 L 15 132/80 94 12/06/21 06:30 98.4 F 46 L 12 94 12/06/21 06:00 98.2 F 50 L 15 115/81 95 12/06/21 05:30 98.2 F 43 L 12 96 PG Care Time/CCT Total # of Minutes Spent Total Time Spent with Patient: Total time spent is greater than 50% in coordination of care (as documented) at patient's floor/unit and/or counseling patient: Coding Level of Care Code 62163 Subseq Hosp Care Lvl 3 Diagnoses Pericardial effusion I31.3
[2021-12-06] MEDS: TAMSULOSIN HCL 0.4 MG CAP PO SCH (19:44)
[2021-12-07 05:52] LABS: Basophils # (auto) 0.02 K/uL (0-0.2); Basophils % (auto) 0.3 %; Eosinophils % (auto) 1.4 %; Hematocrit (blood only) 35.9 % (42-52); Hemoglobin 11.9 g/dL (14.0-18.0); Immature Granulocytes # (auto) 0.04 K/uL (0.00-0.02); Immature Granulocytes % (auto) 0.6 %; Lymphocytes # (auto) 2.11 K/uL (1.2-3.4); Lymphocytes % (auto) 29.2 %; Mean Corpuscular Hemoglobin 29.8 pg (25-34); Mean Corpuscular Hgb Conc 33.1 g/dL (32-36); Mean Platelet Volume 9.5 fL (7.4-10.4); Monocytes # (auto) 0.77 K/uL (0.11-0.59); Monocytes % (auto) 10.7 %; Neutrophils # (auto) 4.18 K/uL (1.4-6.5); Neutrophils % (auto) 57.8 %; Platelet Count 276 K/uL (130-400); RDW Coefficient of Variation 13.6 % (11.5-14.5); RDW Standard Deviation 45.1 fL (36.4-46.3); Red Blood Count 3.99 M/uL (4.7-6.1); White Blood Count 7.22 K/uL (4.8-10.8)
[2021-12-07] MEDS: IBUPROFEN 600 MG TAB PO SCH (05:52)
[2021-12-07] MEDS: COLCHICINE 0.6 MG TAB PO SCH ×2 (05:53→17:53)
[2021-12-07 06:02] LABS: INR 1.3 (0.9-1.1); Prothrombin Time 13.5 Seconds (9.0-12.0)
[2021-12-07 06:15] LABS: Albumin Level 2.9 gm/dl (3.4-5.0); BUN Creatinine Ratio 21.1 (10-20); Bilirubin,Total 0.5 mg/dl (0.2-1.0); Calcium 8.5 mg/dl (8.5-10.1); Creatinine Clr Calc Pharmacy 91.5 ml/min; Est GFR (African American) 100.6 ml/min; Est GFR (Non-African American) 86.8 ml/min; Globulin 2.8 gm/dl (2.5-4.0); Phosphorus 4.6 mg/dl (2.5-4.9); Potassium 4.2 mmol/L (3.5-5.1); Total Protein 5.7 gm/dl (6.0-8.3)
[2021-12-07] MEDS: AMIODARONE 200 MG TAB PO SCH (07:42)
[2021-12-07] MEDS: CALCIUM 600MG + VIT D 400 IU TAB PO SCH (07:43)
[2021-12-07] MEDS: APIXABAN 5 MG TABLET PO SCH ×2 (07:43→20:03)
[2021-12-07] MEDS: ARTIFICIAL TEARS OP SCH ×2 (07:43→20:04)
[2021-12-07] MEDS: ASCORBIC ACID 500 MG TAB PO SCH (07:43)
[2021-12-07] MEDS: FOLIC ACID 400 MCG TAB PO SCH (07:44)
[2021-12-07] MEDS: CYANOCOBALAMIN (B-12) 500 MCG TABLET PO SCH (07:44)
[2021-12-07] MEDS: METOPROLOL TARTRATE 25 MG TAB PO SCH ×2 (07:44→20:03)
[2021-12-07] MEDS: PANTOprazole 40 MG TAB PO SCH ×2 (07:44→20:04)
--- NOTE | 2021-12-07 09:21 | Medical Student Progress Note ---
Date of Service December 07, 2021 Assessment & Plan (1) Pericardial effusion: Plan: 71 yo M with PMH NERIS, cervical stenosis, HTN, HLD, Anxiety, DDD brought to the ER for weakness and fatigue found to be acutely hypotensive in A flutter with RVR due to pericardial effusion with tamponade, then requiring ICU level care for vasopressors, stepped down on 12/06, and improving overall. Hypovolemic and Cardiogenic shock 2/2 pericardial effusion and pericarditis s/p pericardiocentesis -12/02: initially requiring pressor support in ICU, now hemodynamically stable - 12/03: pericardiocentesis drained 260 ml of serosanguinous fluid - follow up TTE showing improved ventricular function and decreased effusion size - cultures of pericardial fluid showing WBC predominance without organisms, likely viral rather than rheumatologic, pathology and Acid fast smear still pending. - colchicine for pericarditis treatment - 12/07: ibuprofen changed to aspirin 325 mg BID for pericarditis - HS troponin downtrending from peak of 1033 - respiratory viral panel negative - coxsackie subtypes pending Vtach - run of sustained Vtach while in ICU Monday, successfully converted with shock of 200J x1 - 12/04: started on amiodarone drip - 12/06: discontinued amiodarone drip, transitioned to oral (400 for 2 days, 200 thereafter) Acute hypoxic respiratory failure, improving - secondary to PNA and cardiac dysfunction as above - goal O2 >90%, currently on 1L nC - pulmonary toilet, no home O2 requirement TONY - due to shock, resolved with fluid resuscitation Atrial flutter with rapid ventricular response - s/p electrical conversion with clearance of Afib - Aflutter duration unknown - on daily eliquis for anticoagulation - 12/07: metoprolol held for 2 days due to bradycardia, restarted today per Dr. Thrasher, acceptable to give if heart rate is in the 50s Transaminitis - 12/06: Alk Phos 126, ALT 116, AST 56 - 12/07:Alk phos 115, ALT 85, AST 30 - likely due to transient hypotensive shock liver/cardioversion, monitor for improvement CAP (community acquired pneumonia) LLL - Community acquired, completed course of doxycycline prior to hospital admission - 12/04: azithromycin stopped - 12/07: ceftriaxone completed - WBC decreasing on antibiotics - no risk factors for Staph or Pseudomonas - MRSA nares negative Urinary retention - episode of urinary retention during ICU stay when catheter was removed, catheter replaced - no significant symptoms of BPH or urinary retention prior to hospitalization, some decreased urinary stream with age - Tamsulosin 0.4mg PO HS - Disla removed today, monitor for urinary retention and if occurs do a straight cath rather than reinsert Disla Congestion -nasal saline spray PRN Hypertension -pressures 143/87 in the AM 12/07 - 12/07: restart Lisinopril PO 10 mg, pressure 115/69 in the afternoon Plan: FEN/GI: Heart healthy ppx: SCDs code: full dispo: Med/tele Admission and Anticipated Discharge Date Admission Date: December 03, 2021 Supervising Attestation Patient seen and examined with medical student Josephine Milian. Agree with history, exam findings, assessment and plan of care as outlined. In brief, Mr. Saba 71 year old male with hx of NERIS, HTN, HLD, anxiety, degenerative disc disease and cervical stenosis admitted with myopericarditis. Feels well. No chest pain. Has been able to walk around in the room. Does report feeling a bit weak, but no dyspnea or chest pain. Did work with PT and OT earlier today as well without any difficulty. VS and nursing notes reviewed Heart with regular rate and rhythm. Lungs are clear to auscultation. No wheezes or ronchi. Lower extremities without edema. Labs reviewed. 1. Cardiogenic shock. Resolved. 2. Myopericarditis with pericardial effusion. s/p pericardiocentesis on 12/03 with improvement in ventricular function. Fluid path and acid fast pending. Continue colchicine, switched ibuprofen to ASA BID as recommended by cardiology. RVP neg. Coxsackie subtypes pending. 3. A-flutter with RVR. s/p electrical conversion. AC with Eliquis. Continue metoprolol tartrate 12.5mg BID, o to give for HR >50. 4. Sustained wide complex SVT episode. Continue oral amiodarone. 5. Bradycardia. Asymptomatic. He is beta-blocked so will continue to monitor. Appreciate cardiology recommendations. 6. HTN. Added back home lisinopril 10mg. 7. LLL pneumonia (CAP). On ceftriaxonecompleted today. 8. Acute hypoxic respiratory failure. Resolved. Off supplemental oxygen. 9. Tansaminitis. AST and ALT normalizing. 10. Urinary retention. Had an issue with urinary retention earlier this admission after Disla was removed. Disla removed this afternoon. Flomax added today. If he is not able to urinate overnight, prefer straight cath rather than re-inserting a Disla in an effort to get him home. Dispo: pending clinical improvement. Jessi Miguel is a 71 year old male on hospital day 4 presenting for fever, weakness, fatigue and found to have pericardial effusion with tamponade improved with pericardicentesis and afib/aflutter in RVR resolved with cardioversion. Today he is sitting in a chair and is still feeling stronger and more comfortable with transfer from bed to chair now that he has done it a few times. His appetite is fair. No belly pain but gas and last bowel movement was yesterday. He had some chills last night and congestion this morning, but no cough, sore throat, or shortness of breath and improved during the day. He has some brief lightheadedness with deep breathing/leaning forward. Disla removed today and he had a small void after. Physical Exam Physical Exam: General: Alert and oriented x 3. No acute distress Pulm: clear to auscultation, no wheezes/rales/rhonchi, no clubbing Cardiac: distant heart sounds, RRR, no murmurs/rubs/gallops good capillary refill, no edema Abdominal: Normal bowel sounds. Nontender, nondistended, soft. Results & Data ([facility]) Vital Signs (Past 12 Hours) Vital Signs Temp Pulse Pulse Resp BP Pulse Ox 12/07/21 08:00 36.9 C 55 L 16 143/87 H 96 12/07/21 03:38 48 L 14 93 12/07/21 00:00 45 L 12/06/21 23:01 36.6 C 67 16 143/96 H 93 12/06/21 21:47 58 L 16 95
[2021-12-07] MEDS: cefTRIAXone SODIUM 2,000 MG in DEXTROSE 5% 50 ML IV SCH (09:44)
[2021-12-07] MEDS ORDERED: SODIUM CHLORIDE 0.65% NA SOLN 45 ML (OCEAN) PRN (10:12)
[2021-12-07] MEDS: lisinopril 10 MG TAB PO SCH (11:21)
--- NOTE | 2021-12-07 12:26 | Cardiology Progress Note ---
Date of Service December 07, 2021 Assessment & Plan (1) Pericardial effusion: Plan: Suspected viral illness with myopericarditis 2. Atrial flutter/atrial fibrillation with RVR 3. Wide-complex tachycardiasuspected SVT with aberrancy 4. Hypotension requiring pressors - resolved 5. TONY - resolved Feeling well. No recurrent atrial fibrillation/flutter with RVR Sinus bradycardia overnight No signs of heart failure exam today. continue anticoagulation with Eliquis. Can transition to amiodarone 200 mg daily would give metoprolol 12.5 mg today. Okay to give with heart rates in the 50s Continue colchicine, aspirin. cardiac standpoint if up walking around today okay with discharge later this afternoon. Follow-up with me in 1 to 2 weeks. Admission and Anticipated Discharge Date Admission Date: December 03, 2021 Subjective Feeling well today. Has been up walking the bathroom without recurrent symptoms. No other concerns. Telemetry reviewedsinus bradycardia overnight. No recurrent atrial fibrillation Review of Systems Review of Systems: All systems reviewed & are unremarkable except as noted in HPI & below Physical Exam Physical Exam: General: Comfortable HEENT: Sclerae anicteric Lungs: Clear to auscultation bilaterally Cardiac: Regular rate and rhythm, no murmurs, no rubs. Drain site dressed. no erythema or drainage Vascular: 2+ radial. Distal extremities warm Abdomen: Soft, nontender Extremities: no peripheral edema Neuro: Nonfocal Psych: Alert orient x3, normal affect and mood Results & Data ([facility]) Vital Signs (Past 12 Hours) Vital Signs Temp Pulse Pulse Resp BP Pulse Ox 12/07/21 11:21 56 L 17 139/89 98 12/07/21 08:00 98.4 F 55 L 16 143/87 H 96 12/07/21 03:38 48 L 14 93 PG Care Time/CCT Total # of Minutes Spent Total Time Spent with Patient: Total time spent is greater than 50% in coordination of care (as documented) at patient's floor/unit and/or counseling patient: Coding Level of Care Code 09516 Subseq Hosp Care Lvl 3 Diagnoses Pericardial effusion I31.3
[2021-12-07] MEDS: ASPIRIN 81 MG CHEW PO SCH (17:53)
[2021-12-07] MEDS: TAMSULOSIN HCL 0.4 MG CAP PO SCH (20:04)
[2021-12-08] MEDS: COLCHICINE 0.6 MG TAB PO SCH (05:34)
[2021-12-08] MEDS: ASPIRIN 81 MG CHEW PO SCH (05:34)
[2021-12-08 07:57] LABS: Basophils # (auto) 0.01 K/uL (0-0.2); Basophils % (auto) 0.1 %; Eosinophils # (auto) 0.08 K/uL (0-0.5); Eosinophils % (auto) 1.1 %; Hematocrit (blood only) 36.8 % (42-52); Hemoglobin 12.1 g/dL (14.0-18.0); Immature Granulocytes # (auto) 0.03 K/uL (0.00-0.02); Immature Granulocytes % (auto) 0.4 %; Lymphocytes # (auto) 1.77 K/uL (1.2-3.4); Lymphocytes % (auto) 25.3 %; Mean Corpuscular Hemoglobin 29.9 pg (25-34); Mean Corpuscular Hgb Conc 32.9 g/dL (32-36); Mean Corpuscular Volume 90.9 fL (80-100); Mean Platelet Volume 9.2 fL (7.4-10.4); Monocytes # (auto) 0.69 K/uL (0.11-0.59); Monocytes % (auto) 9.9 %; Neutrophils # (auto) 4.41 K/uL (1.4-6.5); Neutrophils % (auto) 63.2 %; Platelet Count 317 K/uL (130-400); RDW Coefficient of Variation 13.7 % (11.5-14.5); RDW Standard Deviation 45.2 fL (36.4-46.3); Red Blood Count 4.05 M/uL (4.7-6.1); White Blood Count 6.99 K/uL (4.8-10.8)
[2021-12-08] MEDS: ASCORBIC ACID 500 MG TAB PO SCH (08:19)
[2021-12-08] MEDS: PANTOprazole 40 MG TAB PO SCH (08:20)
[2021-12-08] MEDS: METOPROLOL TARTRATE 25 MG TAB PO SCH (08:20)
[2021-12-08] MEDS: CALCIUM 600MG + VIT D 400 IU TAB PO SCH (08:21)
[2021-12-08] MEDS: APIXABAN 5 MG TABLET PO SCH (08:21)
[2021-12-08] MEDS: ARTIFICIAL TEARS OP SCH (08:21)
[2021-12-08] MEDS: FOLIC ACID 400 MCG TAB PO SCH (08:21)
[2021-12-08] MEDS: lisinopril 10 MG TAB PO SCH (08:22)
[2021-12-08] MEDS: CYANOCOBALAMIN (B-12) 500 MCG TABLET PO SCH (08:22)
[2021-12-08 08:23] LABS: Albumin Globulin Ratio 1.1 (0.9-2); Albumin Level 3.2 gm/dl (3.4-5.0); BUN Creatinine Ratio 15.7 (10-20); Bilirubin,Total 0.6 mg/dl (0.2-1.0); Calcium 8.9 mg/dl (8.5-10.1); Creatinine Clr Calc Pharmacy 92.7 ml/min; Est GFR (African American) 101.1 ml/min; Est GFR (Non-African American) 87.2 ml/min; Globulin 2.9 gm/dl (2.5-4.0); Potassium 4.1 mmol/L (3.5-5.1); Total Protein 6.1 gm/dl (6.0-8.3)
[2021-12-08 08:53] LABS: INR 1.3 (0.9-1.1); Prothrombin Time 13.2 Seconds (9.0-12.0)
[2021-12-08] MEDS ORDERED: AMIODARONE 200 MG TAB PO SCH (09:00)
--- NOTE | 2021-12-08 09:21 | Med Student Discharge Summary ---
Date of Service December 08, 2021 Admission HPI Per Admitting Provider The patient is a 71-year-old male with a past medical history including lumbar degenerative disc disease, lumbar laminectomy, cervical spine stenosis, periodic limb movement disorder, NERIS, impaired fasting glucose, hypertension, hyperlipidemia, generalized anxiety disorder. The patient had a telehealth visit on 11/22/2021, and arrangements have been made for COVID-19 and influenza testing. His significant other reports he had a pneumonia shot at the end of October, and felt after that time he began to progressively feel weakness, fatigue and achiness. The patient had just completed a course of doxycycline, but due to worsening symptoms, he presented to the ED for assessment. Upon arrival to the emergency department, patient was found to be hypotensive, in atrial fibrillation with RVR, was given appropriate fluid resuscitation, and required cardioversion. His blood pressure and heart rate mildly improved, and as work-up progressed, with abnormal EKG suggesting ST- T changes in the lateral chest leads, and chest x-ray showing increased heart size, he was started on a neodrip by ED, and both the hospitalist service in the ICU service was contacted for admission. A significant part of the history was obtained through his significant other, as the patient was somewhat fatigued. Discharge Exam General: Alert and oriented x 3. No acute distress Pulm: clear to auscultation, no wheezes/rales/rhonchi, no clubbing Cardiac: distant heart sounds, RRR, no murmurs/rubs/gallops good capillary refill, no edema Abdominal: Normal bowel sounds. Nontender, nondistended, soft. Discharge Data Consultations 12/03/21 02:23 ED Decision to Admit Stat 12/03/21 04:42 Consult Machine Shop Lead Man Routine 12/03/21 07:06 Consult Cardiology Routine Procedures Performed Operation Date: 12/03/21 14:30 Actual Procedures p Right Heart Cath Only - Rolando Thrasher MD p Pericardiocentesis - Rolando Thrasher MD Hospital Course (1) Pericardial effusion: 71 yo M with PMH NERIS, cervical stenosis, HTN, HLD, Anxiety, DDD brought to the ER for weakness and fatigue found to be acutely hypotensive in A flutter with RVR due to pericardial effusion with tamponade, then requiring ICU level care for vasopressors, stepped down on 12/06, and improving overall. Hypovolemic and Cardiogenic shock 2/2 pericardial effusion and pericarditis s/p pericardiocentesis -12/02: initially requiring pressor support in ICU, now hemodynamically stable - 12/03: pericardiocentesis drained 260 ml of serosanguinous fluid - follow up TTE showing improved ventricular function and decreased effusion size - cultures of pericardial fluid showing WBC predominance without organisms, likely viral rather than rheumatologic, pathology and Acid fast smear still pending. - colchicine for pericarditis treatment, continue for 3 months until visit with cardiology - 12/07: ibuprofen changed to aspirin 324 mg BID for pericarditis, continue for 1-2 weeks until visit with cardiology - HS troponin downtrending from peak of 1033 - respiratory viral panel negative - coxsackie subtypes pending Vtach - run of sustained Vtach while in ICU Monday, successfully converted with shock of 200J x1 - 12/04: started on amiodarone drip - 12/06: discontinued amiodarone drip, transitioned to oral (400 for 2 days, 200 thereafter) - 12/08: 200 amiodarone PO daily, continue until visit with cardiology Acute hypoxic respiratory failure, improving - secondary to PNA and cardiac dysfunction as above - goal O2 >90%, currently on 1L nC - pulmonary toilet, no home O2 requirement OTNY - due to shock, resolved with fluid resuscitation Atrial flutter with rapid ventricular response - s/p electrical conversion with clearance of Afib - Aflutter duration unknown - on daily eliquis for anticoagulation, continue until cardiology visit - 12/07: metoprolol held for 2 days due to bradycardia, restarted today per Dr. Thrasher, acceptable to give if heart rate is in the 50s, continue home dose Transaminitis - 12/06: Alk Phos 126, ALT 116, AST 56 - 12/07:Alk phos 115, ALT 85, AST 30 - 12/08: Alk phos 114; ALT 64, AST 19 - likely due to transient hypotensive shock liver/cardioversion, monitor for improvement CAP (community acquired pneumonia) LLL - Community acquired, completed course of doxycycline prior to hospital admission - 12/04: azithromycin stopped - 12/07: ceftriaxone completed - WBC decreasing on antibiotics - no risk factors for Staph or Pseudomonas - MRSA nares negative Urinary retention - episode of urinary retention during ICU stay when catheter was removed, catheter replaced - no significant symptoms of BPH or urinary retention prior to hospitalization, some decreased urinary stream with age - Tamsulosin 0.4mg PO HS, continue until seen by PCP - Disla removed today, monitor for urinary retention and if occurs do a straight cath rather than reinsert Disla Congestion -nasal saline spray PRN Hypertension -12/07: pressures 143/87 in the AM - 12/07: restart Lisinopril PO 10 mg, pressure 115/69 in the afternoon - 12/08: 117/70 New medications: Colchicine 0.6mg BID, Aspirin 324 mg BID, Amiodarone 200 daily, Eliquis 5mg BID, Continue home medications Follow up with PCP within 1 week Follow up with Cardiology/Dr. Thrasher within 2 weeks Discharge Plan Discharge Items Patient Disposition: Home - Self-Care Reason For Visit: HYPOTENSION REQUIRING PRESSORS Discharge Diagnosis: Cardiogenic shock, myopericarditis, pericardial effusion, cardiac tamponade, afib with RVR Activity: Per Instructions section Non-emergency contact: Primary Care Provider and Director Of Provider Relations Call non-emergency contact if: you have any medication questions and your symptoms worsen Follow-up/Referrals: Rosas Leyva MD [Primary Care Provider] - Rolando Thrasher MD [Physician] - (1-2 weeks from discharge) Diet: Heart Healthy Addtl Attending Provider Instructions: You were admitted to the hospital for low blood pressure (hypotension) and shock which was due to inflammation of the heart muscle and fluid accumulating around the heart. You were treated with anti-inflammatory medicines, medicines to support your blood pressure, and a procedure which drained the extra fluid which was surrounding your heart. Your recovery has gone well, and we feel it is safe for you to return home. A discharge summary will be sent to your primary care physician to ensure continuity of care. Please bring this discharge summary with you to your next office appointment so that your provider can review it at that time. Follow-up appointments Make a follow-up appointment with your primary care provider/family doctor within the next week. It is very important that you follow up with them shortly after discharge from the hospital. We have requested a follow-up appointment with Cardiology within two weeks of discharge. Please call their office if you do not hear from them by Monday; their phone number is [phone]. Keep all your follow-up appointments as already scheduled. If you cannot make an appointment, notify your primary care provider. Activity Avoid exercise and strenuous activity until you follow up with Cardiology. They will provide further guidance regarding when you can be physically active again. Medications: Your medication list has been reviewed and reconciled upon discharge to ensure accuracy and continuity of care. An updated list of all your medications is included with your hospital discharge paperwork. Please review this list closely, and make note of any changes. * We sent a new medication called colchicine to your pharmacy. Take colchicine (0.6mg) one tablet twice daily for three months. * We sent a new medication called aspirin to your pharmacy. Take aspirin (81mg) four tablets twice daily until you are seen by Cardiology. * We sent a new medication called amiodarone to your pharmacy. Take amiodarone (200mg) one tablet daily until you are seen by Cardiology. * We sent a new medication called apixaban (Eliquis) to your pharmacy. Take Eliquis (5mg) one tablet every twelve hours until seen by Dr. Thrasher. * We sent a new medication called tamsulosin (Flomax) to your pharmacy. Take tamsulosin (0.4mg) one tablet daily until seen by your Family Doctor. * We stopped your doxycycline and lorazepam. Your baby aspirin was changed as described above. If you have any issues filling these prescriptions, please call [phone] and ask to leave a message for Dr. Travis Love. Take your medications as instructed; do not skip a dose of your medicines. Make sure all of your doctors know every medicine you are taking (including reyy-wqa-oxbresy medicines, vitamins, and supplements). Call your primary care provider before taking any new medicines (including rnmt-gxg-hrkvqop medicines, vitamins, and supplements), because some of these may interact with your current medications, or may make your symptoms worse. Tell your primary care provider if you cannot afford your medications. CONTACT YOUR PRIMARY CARE PROVIDER if you experience any of the following: Shortness of breath Dizziness or lightheadedness Difficulty following your treatment plan, or difficulty taking medications CALL 911 OR GO TO THE EMERGENCY DEPARTMENT if you experience any of the following: Sudden, severe abdominal pain or nausea/vomiting Severe chest pain, or chest pain that radiates (moves) to your jaw or arm Sudden, severe shortness of breath or difficulty breathing Thank you for allowing us to participate in your care. Pending Studies at Discharge: Yes (pericardial effusion fluid analysis) Stand-Alone Forms: My [facility] Medications and DC Order Prescriptions: New amiodarone 200 mg Tablet 200 mg PO QAM 30 Days Qty: 30 RF: 0 aspirin [Children's Aspirin] 81 mg Tablet,Chewable 324 mg PO Q12H 30 Days Qty: 240 RF: 0 colchicine [Colcrys] 0.6 mg Tablet 0.6 mg PO Q12H 90 Days Qty: 180 RF: 0 metoprolol tartrate 25 mg Tablet 12.5 mg PO BID 30 Days Qty: 30 RF: 0 Eliquis 5 mg Tablet 5 mg PO BID 30 Days Qty: 60 RF: 0 Continued carboxymethylcellulose sodium [Refresh Tears] 0.5 % drops 1 drp ophthalmic (eye) BID RF: 0 fluoride (sodium) [SF 5000 Plus] 1.1 % cream 1 applic dental DAILY RF: 0 lisinopril 10 mg tablet 10 mg PO DAILY Qty: 90 RF: 3 clonazepam 0.5 mg tablet 0.5 mg PO DAILY Qty: 30 RF: 1 multivitamin tablet 1 tab PO DAILY RF: 0 Metamucil Plus Calcium 1-60 gram-mg capsule 1 cap PO BID RF: 0 Icaps MV 100-1.66-0.83 mcg-mg-mg tablet,delayed release (DR/EC) 1 tab PO DAILY RF: 0 omega-3 acid ethyl esters 1 gram capsule 2 cap PO DAILY RF: 0 cyanocobalamin (vitamin B-12) 1,000 mcg tablet 1,000 mcg PO DAILY RF: 0 folic acid 800 mcg tablet 0.8 mg PO DAILY RF: 0 cinnamon bark [Cinnamon] 500 mg capsule 1,000 mg PO DAILY RF: 0 chromium picolinate 1,000 mcg tablet 1,000 mcg PO DAILY RF: 0 calcium citrate-vitamin D3 250 mg calcium- 200 unit tablet 2 tab PO DAILY RF: 0 ascorbic acid (vitamin C) 500 mg capsule 500 mg PO DAILY RF: 0 epinephrine 0.3 mg/0.3 mL auto-injector 0.3 mg IM Q15M PRN (Reason: anaphylaxis) Qty: 2 RF: 3 Discontinued lorazepam 0.5 mg tablet 0.5 mg PO DAILY PRN (Reason: anxiety) Qty: 30 RF: 0 doxycycline hyclate 100 mg capsule 100 mg PO BID 7 Days Qty: 14 RF: 0 aspirin 81 mg tablet 81 mg PO DAILY RF: 0 Discharge Orders: Discharge Order (Routine); Ordered 12/08/21 Ordered By: Travis Love Admission Data Admit Date/Time: 12/03/21 03:06 Attending Provider: Elen Paulino Admit Provider: Gianfranco Molina Primary Care Provider: Rosas Leyva Other Providers: Gianfranco Molina ; Myron De Los Santos ; Rolando Thrasher Other Interventions: Discharge Summary Assessment (RN) Last Done: 12/08/21 09:29 Supervising Attestation Patient seen and examined with medical student Josephine Milian. Agree with history, exam findings, assessment and plan of care as outlined. In brief, Mr. Saba 71 year old male with hx of NERIS, HTN, HLD, anxiety, degenerative disc disease and cervical stenosis admitted with myopericarditis. Feels well. No chest pain or dyspnea. Has been able to walk in the hallway. VS and nursing notes reviewed Heart with regular rate and rhythm. Lungs are clear to auscultation. No wheezes or ronchi. Lower extremities without edema. Labs reviewed. 1. Cardiogenic shock. Resolved. 2. Myopericarditis with pericardial effusion. s/p pericardiocentesis on 12/03 with improvement in ventricular function. Fluid path and acid fast pending. Continue colchicine and ASA BID as recommended by cardiology. RVP neg. Coxsackie subtypes pending. 3. A-flutter with RVR. s/p electrical conversion. AC with Eliquis. Continue metoprolol tartrate 12.5mg BID, o to give for HR >50. 4. Sustained wide complex SVT episode. Continue oral amiodarone. 5. Bradycardia. Asymptomatic. He is beta-blocked so will continue to monitor. Appreciate cardiology recommendations. 6. HTN. Added back home lisinopril 10mg. 7. LLL pneumonia (CAP). On ceftriaxonecompleted today. 8. Acute hypoxic respiratory failure. Resolved. Off supplemental oxygen. 9. Transaminitis. AST and ALT normalizing. 10. Urinary retention. No issues over night with urinary retention after Disla was removed. Dispo: discharge home today. I personally spent 25 minutes discharge planning for this patient.
[2021-12-08 18:22] LABS: Coxsackie B1 <1:8 (<1:8); Coxsackie B2 <1:8 (<1:8); Coxsackie B3 <1:8 (<1:8); Coxsackie B4 <1:8 (<1:8); Coxsackie B5 <1:8 (<1:8); Coxsackie B6 <1:8 (<1:8)
== END 2021-12-08 10:40 | disposition home or self-care (01) | DRG 286 ==
LOC: ED 23:46 → 1E 12-03 03:06 → SUATTDRO 12-03 03:06 → 1E 12-03 04:37 → 2S 12-07 15:07
PROC: CLB.CRH (2021-12-03 14:30)